=== PATIENT | male | born 1955 | race Caucasian/White ===

== ENCOUNTER 2017-06-13 17:20 | Emergency (ER) | payer OTHER ==
[~2017-06-13] VITALS: Ht 180.3 cm; Wt 83.9 kg
[~2017-06-13 17:20] MED LIST: Augmentin 875-1 EACH PO; CRUTCH3 USE; METO50 PO; OXYACE5T PO; RXOXYACE PO
== END 2017-06-13 18:08 | disposition home or self-care (01) ==
LOC: ER 17:20
DX: Z28.04 Immunization not carried out because of patient allergy to vaccine or component (principal); Z88.1 Allergy status to other antibiotic agents; Z88.7 Allergy status to serum and vaccine
CPT/HCPCS: 99281; Q2038

== ENCOUNTER 2017-12-22 22:22 | Emergency (ER) | payer OTHER ==
[~2017-12-22] VITALS: Ht 180.3 cm; Wt 86.2 kg
[2017-12-23] MEDS ORDERED: CEPH500 PO (00:05)
[2017-12-23] MEDS ORDERED: Bactrim Ds Tab1 EACH PO (00:05)
== END 2017-12-23 00:23 | disposition home or self-care (01) ==
LOC: ER 22:22
DX: L02.512 Cutaneous abscess of left hand (principal); Z88.7 Allergy status to serum and vaccine; Z88.1 Allergy status to other antibiotic agents; W27.0XXA Contact with workbench tool, initial encounter
CPT/HCPCS: 10060; 73140; 99283-25

== ENCOUNTER 2020-05-15 01:03 | Inpatient (IN) | payer OTHER ==
[~2020-05-15] VITALS: Ht 177.8 cm; Wt 90.7 kg
[~2020-05-15 01:03] MED LIST changes: +Bactrim Ds Tab1 EACH PO; +CEPH500 PO
[2020-05-15 01:22] LABS: BASOPHILS ABSOLUTE AUTO 0.06 K/mm3 (0.00-0.23); BASOPHILS PERCENT AUTO 1 % (0-2); EOSINOPHILS ABSOLUTE AUTO 0.19 K/mm3 (0.00-0.68); EOSINOPHILS PERCENT AUTO 3 % (0-6); Hematocrit 40.8 % (37.0-53.0); Hemoglobin 13.1 g/dL (13.5-17.5); IMMATURE GRAN ABSOLUTE AUTO 0.02 K/mm3 (0.00-0.10); IMMATURE GRAN PERCENT AUTO 0 % (0-1); LYMPHOCYTES ABSOLUTE AUTO 1.76 K/mm3 (0.84-5.20); LYMPHOCYTES PERCENT AUTO 27 % (21-46); MONOCYTES ABSOLUTE AUTO 0.62 K/mm3 (0.16-1.47); MONOCYTES PERCENT AUTO 10 % (4-13); Mean Corpuscular HGB 28.2 pg (26.0-34.0); Mean Corpuscular HGB Conc 32.1 g/dL (31.5-36.5); Mean Corpuscular Volume 88 fL (80-100); Mean Platelet Volume 9.7 fL (9.1-12.4); NEUTROPHILS ABSOLUTE AUTO 3.86 K/mm3 (1.96-9.15); NEUTROPHILS PERCENT AUTO 59 % (41-73); Platelet Count 276 K/mm3 (150-400); RDW Coefficient Variation 14.5 % (11.7-14.2); RDW Standard Deviation 46.3 fL (35.1-46.3); Red Blood Cell Count 4.65 M/mm3 (4.30-5.90); White Blood Cell Count 6.51 K/mm3 (4.00-11.30)
[2020-05-15 01:38] LABS: Anion Gap 4 mmol/L (6-16); Blood Urea Nitrogen 26 mg/dL (8-24); Bun/Creatinine Ratio 30.4 (12.0-20.0); CO2, Blood 29 mmol/L (21-32); Chloride, Blood 109 mmol/L (98-108); Creatinine, Blood 0.86 mg/dL (0.60-1.20); Glomerular Filtration Rate >60 (60-); Glucose, Blood 114 mg/dL (70-99); Potassium, Blood 3.8 mmol/L (3.5-5.5); Sodium, Blood 142 mmol/L (136-145)
--- NOTE | 2020-05-15 03:31 | NUR ---
ED REPORT TO SURG UNIT RECIEVED REPORT FROM AVELINA AT ED FOR PT TO TRANSFER TO ROOM 210, MED STATUS FOR CVA.
--- NOTE | 2020-05-15 04:27 | NUR ---
ARRIVED AT SURG UNIT 0320 PT ARRIVED AT SURG UNIT AT 0320. ALERT AND ORIENTED. VSS. REPORTS R SIDE WEAKNESS. PT'S R SIDE WEAKNESS WITH SOME NUMBNESS SINCE YESTERDAY MORNING. PT DENIES CP SOB, NUMBNESS OR TINGLING ON FACE, NO FACIAL DROOPING. PT ORIENT IN ROOM. CALL LIGHT W/IN REACH.
--- NOTE | 2020-05-15 04:45 | NUR ---
DR DALTON IN ROOM AT 0425. WILL CALL PT'S TOBIAS CHANG FOR AN UPDATE BECAUSE SHE CALLED AT THE NURSING STATION. OBTAINED CONSENT FROM PT.
--- NOTE | 2020-05-15 05:56 | NUR ---
NO ACUTE CHANGES AT THIS TIME. PLAVIX AND LIPITOR WAS ADMINISTERED. PT REFUSED FLU SHOT. NS IV INFUSING ON LEFT HAND. TELE WAS IN PLACED. CALLED TELE SPOKE WITH CASEY PT IS ON SINUS RHYTHM AT 60. PT IS CURRENTLY ASLEEP IN BED. CALL LIGHT WITHIN REACH. WILL GIVE REPORT TO MORNING NURSE.
--- NOTE | 2020-05-15 06:15 | NUR ---
CALLED AND SPOKE TO DAUGHTER BERNARDO FOR AN UPDATE.
--- NOTE | 2020-05-15 08:21 | NUR ---
notified dr quinonez of bp of 172/101, that pt cannot raise right arm off bed and that pt has weak survey party chief to right. also that pt is unable to state the month and when i asked him if it was beginning or end of month he chose beginning of month. dr quinonez will round on patient
--- NOTE | 2020-05-15 09:12 | NUR ---
0845 NOTIFIED PT WAS OFF TELEMETRY. ON ARRIVAL PT STANDING AT EDGE OF BED, IV HAS BEEN PULLED OUT, PT URINATED IN CLOTHING AND TELEMETRY PATCHES PULLED LOOSE. PT STATES HE WOKE UP AND KNEW HE HAD TO URINATE BUT JUST DID NOT REALIZE HE WAS CONNECTED TO IV. CALL LIGHT IN REACH, PT RE INSTRUCTED ON USE OF CALL LIGHT AND TO CALL WHEN HE WOULD LIKE TO GET OOB
[2020-05-15 11:05] LABS: BASOPHILS ABSOLUTE AUTO 0.08 K/mm3 (0.00-0.23); BASOPHILS PERCENT AUTO 1 % (0-2); EOSINOPHILS PERCENT AUTO 3 % (0-6); Hematocrit 42.8 % (37.0-53.0); Hemoglobin 13.8 g/dL (13.5-17.5); IMMATURE GRAN ABSOLUTE AUTO 0.01 K/mm3 (0.00-0.10); IMMATURE GRAN PERCENT AUTO 0 % (0-1); LYMPHOCYTES ABSOLUTE AUTO 1.57 K/mm3 (0.84-5.20); LYMPHOCYTES PERCENT AUTO 24 % (21-46); MONOCYTES ABSOLUTE AUTO 0.58 K/mm3 (0.16-1.47); MONOCYTES PERCENT AUTO 9 % (4-13); Mean Corpuscular HGB 28.2 pg (26.0-34.0); Mean Corpuscular HGB Conc 32.2 g/dL (31.5-36.5); Mean Corpuscular Volume 88 fL (80-100); Mean Platelet Volume 9.6 fL (9.1-12.4); NEUTROPHILS ABSOLUTE AUTO 4.04 K/mm3 (1.96-9.15); NEUTROPHILS PERCENT AUTO 62 % (41-73); Platelet Count 287 K/mm3 (150-400); RDW Coefficient Variation 14.6 % (11.7-14.2); RDW Standard Deviation 46.5 fL (35.1-46.3); Red Blood Cell Count 4.89 M/mm3 (4.30-5.90); White Blood Cell Count 6.48 K/mm3 (4.00-11.30)
[2020-05-15 11:27] LABS: Source, Urine Clean Catch
[2020-05-15 11:29] LABS: Alanine Aminotransfer (ALT/SGP 38 U/L (12-78); Albumin/Globulin Ratio 0.7 (0.8-1.8); Alk Phos 58 U/L (50-136); Anion Gap 6 mmol/L (6-16); Aspartate Aminotrans (AST/SGOT 26 U/L (12-37); Bilirubin, Total 0.4 mg/dL (0.1-1.0); Blood Urea Nitrogen 24 mg/dL (8-24); Bun/Creatinine Ratio 29.8 (12.0-20.0); CO2, Blood 27 mmol/L (21-32); Chloride, Blood 109 mmol/L (98-108); Creatinine, Blood 0.81 mg/dL (0.60-1.20); Globulin, Blood 4.4 g/dL (2.2-4.0); Glomerular Filtration Rate >60 (60-); Glucose, Blood 115 mg/dL (70-99); Potassium, Blood 3.9 mmol/L (3.5-5.5); Sodium, Blood 142 mmol/L (136-145); Total Protein, Blood 7.4 g/dL (6.4-8.2)
[2020-05-15 11:33] LABS: Appearance, Urine Hazy (Clear); Bilirubin, Urine Neg (Neg); Blood, Urine Neg (Neg); Color, Urine Yellow (P-Yellow); Glucose Qualitative, Urine Neg (Neg); Ketones, Urine Neg (Neg); Leukocyte Esterase, Urine 1+ (Neg); Nitrite, Urine Neg (Neg); Protein, Urine Neg (Neg); Urobilinogen, Urine NORM (Normal)
[2020-05-15 11:44] LABS: Bacteria Rare /hpf; Red Blood Cells, Urine Not Seen /hpf (0-2); Squamous Epithelial Cells Rare /hpf (Few); U Amphetamine Screen DETECTED; U Barbituate Screen Not Detected; U Benzodiazapine Screen Not Detected; U Buprenorphine Screen Not Detected; U Cannabinoids Screen Not Detected; U Cocaine Screen Not Detected; U Methadone Screen Not Detected; U Methamphetamine Screen DETECTED; U Opiates Screen Not Detected; U Oxycodone Screen Not Detected; U Phencyclidine Screen Not Detected; U Propoxyphene Screen Not Detected; White Blood Cells, Urine 0-2 /hpf (0-5)
--- NOTE | 2020-05-15 12:09 | NUR ---
Advance Directive (ACP) education/Spiritual Care visit conducted. After receiving an admit trigger for ACP education, I visit patient. Patient tells me that he is indeed interested in ACP. I explain the importance, purpose, filing process and notary/witness requirements for the ACP. I hand patient the ACP booklet. Patient demonstrates his comprehension of the information and states that he needs time to think over these important decisions. 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 We also discuss his spiritual belief system and his family. I listen empathically, normalize patient's fears and concerns and provide spiritual guidance and prayer. Patient responds well and shows signs of increased peace. I will continue to assist patient as he adjusts to his new normals.
--- NOTE | 2020-05-15 12:10 | NUR ---
Echocardiogram performed by Kassidy Acevedo under my supervision.
--- NOTE | 2020-05-15 15:43 | NUR ---
to mri via cart
--- NOTE | 2020-05-15 16:38 | NUR ---
1615 RETURN TO ROOM FROM MRI PT STOOD TO TRANSFER TO BED. UNABLE TO USE RIGHT ARM. PT STATES HE FEELS LIKE HIS LEGS ARE STRONG AND EQUAL STRENGTH WHEN HE STANDS. PTS DAUGHTER HERE TO VISIT
--- NOTE | 2020-05-15 17:26 | NUR ---
1545 SPOKE WITH PT AFTER EVALUATION. PER PT PATIENT WAS IMPULSIVE DURING THERAPY SESSION. WILL PLACE BED ALARM WHEN PT RETURNS
--- NOTE | 2020-05-15 17:30 | NUR ---
1640 PT ATTEMPTED TO GET SELF TO RESTROOM, INCONTINENT OF URINE ON FLOOR. DISCUSSED WITH PATIENT NEED TO CALL FOR ASSIST PRIOR TO GETTING OOB. PT STATES HE IS ABLE TO GET OOB ON OWN AND "WILL DO THE SAME THING AGAIN BY HIMSELF" STATES HE WILL NOT CALL FOR HELP TO GET OOB. RE EDUCATED PATIENT REGARDING FALL RISK AND RISK OF INJURY DUE TO RIGHT SIDED WEAKNESS. PT TEARFUL AND STATES HE "CAN DO THINGS ON MY OWN" PT RESISTANT TO EDUCATION CONTINUES TO REPEZT " IW ILL DO IT ON MY OWN" ASSISTED PT BACK TO BED WITH 2 PERSON ASSIST, PT DOES NOT FOLLOW CUES TO STAND STRAIGHT AND WALK TO BED SLOWLY. BED ALARM APPLIED
--- NOTE | 2020-05-15 17:41 | NUR ---
SUMMARY NEURO STATUS UNCHANGED THROUGHOUT SHIFT. VERY WEAK TURBINE ATTENDANT TO RIGHT ARM AND UNABLE TO RAISE RIGHT ARM OFF OF BED, PT DENIES ANY NUMBNESS OR TINGLING. . PT ORIENTED TO PERSON, PLACE AND EVENTS OF HOSPITALIZATION, PT UNABLE TO TELL ME DATE, YEAR OR DAY OF WEEK PT DENIES THAT HE NEEDS ASSIST OOB, BED ALARM IN PLACE. PT JOHN REGULAR DIET WITHOUT COUGHING OR CHOKING
[2020-05-16 04:23] LABS: BASOPHILS ABSOLUTE AUTO 0.05 K/mm3 (0.00-0.23); BASOPHILS PERCENT AUTO 1 % (0-2); EOSINOPHILS ABSOLUTE AUTO 0.17 K/mm3 (0.00-0.68); EOSINOPHILS PERCENT AUTO 3 % (0-6); Hematocrit 44.8 % (37.0-53.0); Hemoglobin 14.9 g/dL (13.5-17.5); IMMATURE GRAN ABSOLUTE AUTO 0.03 K/mm3 (0.00-0.10); IMMATURE GRAN PERCENT AUTO 1 % (0-1); LYMPHOCYTES PERCENT AUTO 28 % (21-46); MONOCYTES ABSOLUTE AUTO 0.52 K/mm3 (0.16-1.47); MONOCYTES PERCENT AUTO 8 % (4-13); Mean Corpuscular HGB 29.3 pg (26.0-34.0); Mean Corpuscular HGB Conc 33.3 g/dL (31.5-36.5); Mean Corpuscular Volume 88 fL (80-100); Mean Platelet Volume 9.7 fL (9.1-12.4); NEUTROPHILS ABSOLUTE AUTO 3.87 K/mm3 (1.96-9.15); NEUTROPHILS PERCENT AUTO 60 % (41-73); Platelet Count 290 K/mm3 (150-400); RDW Coefficient Variation 14.5 % (11.7-14.2); RDW Standard Deviation 46.5 fL (35.1-46.3); Red Blood Cell Count 5.09 M/mm3 (4.30-5.90); White Blood Cell Count 6.44 K/mm3 (4.00-11.30)
[2020-05-16 04:49] LABS: Anion Gap 8 mmol/L (6-16); Blood Urea Nitrogen 23 mg/dL (8-24); Bun/Creatinine Ratio 28.7 (12.0-20.0); CO2, Blood 26 mmol/L (21-32); Calcium, Blood 8.6 mg/dL (8.5-10.1); Chloride, Blood 108 mmol/L (98-108); Glomerular Filtration Rate >60 (60-); Glucose, Blood 92 mg/dL (70-99); Potassium, Blood 3.7 mmol/L (3.5-5.5); Sodium, Blood 142 mmol/L (136-145)
--- NOTE | 2020-05-16 05:48 | NUR ---
SHIFT SUMMARY S/P CVA R/O, A/O BUT RESISTANT TO USING CALL LIGHT FOR ASSISTANCE, REFUSES REDIRECTION BUT WILL CONTINUE TRYING TO REINFORCE IT, DENIES PAIN, HAS BEEN SLEEPING THROUGH MOST OF THE SHIFT. NO ACUTE EVENTS THIS SHIFT. CALL LIGHT IN REACH, WILL CONTINUE TO MONITOR AND REPORT TO ONCOMING DAY RN.
--- NOTE | 2020-05-16 17:28 | NUR ---
SUMMARY PT IMPULSIVE, DOES NOT WAIT FOR STAFF TO ASSIST OOB STATES HE CAN DO IT ON HIS OWN. PT EDUCATED ON SAFETY AND NEED TO CALL FOR ASSIST PRIOR TO GETTING OOB. BED ALARM IN PLACE. PT SLEEPY THROUGHOUT SHIFT. RIGHT HAND WITH VERY WEAK FARM AGENT AND UNABLE TO RAISE OFF OF BED. PT DENIES WEAKNESS OF RIGHT LEG. PT ORIENTED TO PERSON, PLACE UNABLE TO TELL ME MONTH OR DATE.
--- NOTE | 2020-05-17 04:32 | NUR ---
SHIFT SUMMARY: PT A&O X4. PT APPEARS TO BE FORGETFUL- PT REMINDED TO USE CALL LIGHT PRIOR TO GETTING OUT OF BED, HOWEVER REFUSING NEED FOR ASSISTANCE AND SETTING OFF BED ALARM. PT STANDING ON SIDE OF BED TO VOID IN URINAL. UNSTEADY. PT DENIES N/T THROUGHOUT. RIGHT HAND PAPER BOX MAKER REMAINS WEAK. PT ABLE TO LIFT ARM AND REST IT ON ABDOMEN. DENIES WEAKNESS TO RLE. PT RESTING MOST OF SHIFT.
[2020-05-17 10:20] LABS: Anion Gap 5 mmol/L (6-16); Blood Urea Nitrogen 23 mg/dL (8-24); Bun/Creatinine Ratio 27.6 (12.0-20.0); CO2, Blood 28 mmol/L (21-32); Calcium, Blood 8.8 mg/dL (8.5-10.1); Chloride, Blood 107 mmol/L (98-108); Creatinine, Blood 0.83 mg/dL (0.60-1.20); Glomerular Filtration Rate >60 (60-); Glucose, Blood 122 mg/dL (70-99); Potassium, Blood 3.9 mmol/L (3.5-5.5); Sodium, Blood 140 mmol/L (136-145)
[2020-05-17] MEDS ORDERED: LISI20 PO (11:14)
[2020-05-17] MEDS ORDERED: ASPI81CH PO (11:14)
[2020-05-17] MEDS ORDERED: ATOR80 PO (11:14)
--- NOTE | 2020-05-17 14:13 | NUR ---
DISCHARGE. PT LEFT WITH GIRLFRIEND IN WHEELCHAIR. SCRIPT FOR DEVAUGHN WALKER SENT WITH PATIENT. PT EDUCATED ON IMPORTANCE OF USING WALKER FOR ALL AMBULATION. NEW PRESCRIPTIONS SENT TO PHARMACY. IV REMOVED. STROKE PREVENTION GONE EVER WITH PT. EDUCATED ON IMPORTANCE OF RETURNING IMMEDIATLY IF SYMPTOMS RETURN. PT HAD NO FURTHER QUESTIONS. ALL BELONGINGS SENT WITH PT.
== END 2020-05-17 13:45 | disposition home or self-care (01) | DRG 65 ==
LOC: ER 01:03 → SURS 01:04 → ER 02:31 → SURS 02:31
PROVIDERS: Hospitalist; Student in an Organized Health Care Education/Training Program; ADMIT Internal Medicine
DX: I63.9 Cerebral infarction, unspecified (principal); G81.91 Hemiplegia, unspecified affecting right dominant side; R20.0 Anesthesia of skin; F15.10 Other stimulant abuse, uncomplicated; R93.1 Abnormal findings on diagnostic imaging of heart and coronary circulation; G93.9 Disorder of brain, unspecified; Z88.1 Allergy status to other antibiotic agents; Z88.7 Allergy status to serum and vaccine
CPT/HCPCS: 36415; 70450; 70496; 70498; 70551; 71275; 74175; 80048; 80053; 81001; 85025; 87086; 93005; 93010; 93306; 96372; 97110; 97112; 97116; 97162; 97166; 97530; 97535; 99285-25; A9270; G0378; J1650; J7030; Q9967

== ENCOUNTER → 2021-01-06 | Outpatient (CLI) | payer OTHER ==
[~2021-01-06] MED LIST changes: +ASPI81CH PO; +ATOR80 PO; +LISI20 PO
[2021-01-06 16:34] LABS: Source, Urine Catheter
[2021-01-06 17:44] LABS: Appearance, Urine Hazy (Clear); Bilirubin, Urine Neg (Neg); Blood, Urine 2+ (Neg); Color, Urine Yellow (P-Yellow); Glucose Qualitative, Urine Neg (Neg); Ketones, Urine Neg (Neg); Leukocyte Esterase, Urine 3+ (Neg); Nitrite, Urine Neg (Neg); Protein, Urine 2+ (Neg); Urobilinogen, Urine NORM (Normal)
[2021-01-06 17:58] LABS: Bacteria Few /hpf; Squamous Epithelial Cells Rare /hpf (Few)
[2021-01-06 17:59] LABS: Mucus Mod (0-Heavy)
== END | disposition home or self-care (01) ==
LOC: LAB SHORT 16:31 → LAB 16:31
PROVIDERS: Nurse Practitioner Family
DX: N40.1 Benign prostatic hyperplasia with lower urinary tract symptoms (principal)
CPT/HCPCS: 81001; 87077; 87086; 87186

== ENCOUNTER → 2021-06-29 | Outpatient (CLI) | payer OTHER ==
[2021-06-29 18:06] LABS: BASOPHILS PERCENT AUTO 1 % (0-2); EOSINOPHILS PERCENT AUTO 3 % (0-6); Hematocrit 36.5 % (37.0-53.0); Hemoglobin 11.7 g/dL (13.5-17.5); IMMATURE GRAN ABSOLUTE AUTO 0.16 K/mm3 (0.00-0.10); IMMATURE GRAN PERCENT AUTO 2 % (0-1); LYMPHOCYTES ABSOLUTE AUTO 1.92 K/mm3 (0.84-5.20); LYMPHOCYTES PERCENT AUTO 24 % (21-46); MONOCYTES ABSOLUTE AUTO 0.45 K/mm3 (0.16-1.47); MONOCYTES PERCENT AUTO 6 % (4-13); Mean Corpuscular HGB 27.7 pg (26.0-34.0); Mean Corpuscular HGB Conc 32.1 g/dL (31.5-36.5); Mean Corpuscular Volume 86 fL (80-100); Mean Platelet Volume 9.3 fL (9.1-12.4); NEUTROPHILS ABSOLUTE AUTO 5.23 K/mm3 (1.96-9.15); NEUTROPHILS PERCENT AUTO 65 % (41-73); Platelet Count 546 K/mm3 (150-400); RDW Coefficient Variation 14.1 % (11.7-14.2); RDW Standard Deviation 45.1 fL (35.1-46.3); Red Blood Cell Count 4.23 M/mm3 (4.30-5.90); White Blood Cell Count 8.06 K/mm3 (4.00-11.30)
[2021-06-29 18:43] LABS: CHOL/HDL RATIO 5.2; Cholesterol 145 mg/dL (50-200); HDL Cholesterol 28 mg/dL (>39); LDL/HDL RATIO 2.9; Low Density Lipoprotein Chol 81 mg/dL (0-110); Triglycerides 179 mg/dL (30-160); Very Low Density Lipoprot Chol 35 mg/dL (6-32)
[2021-06-29 18:51] LABS: Albumin, Blood 2.8 g/dL (3.4-5.0); Albumin/Globulin Ratio 0.6 (0.8-1.8); Bilirubin, Total 0.3 mg/dL (0.1-1.0); Bun/Creatinine Ratio 17.7 (12.0-20.0); Creatinine, Blood 2.31 mg/dL (0.60-1.20); Percent Saturation 13.3 % (20.0-50.0); Potassium, Blood 4.8 mmol/L (3.5-5.5); Thyroid Stimulating Hormone 1.09 uIU/mL (0.360-4.800); Total Protein, Blood 7.8 g/dL (6.4-8.2)
== END ==
LOC: LAB SHORT 16:18
PROVIDERS: Nurse Practitioner Family
DX: Z12.11 Encounter for screening for malignant neoplasm of colon (principal); Z11.59 Encounter for screening for other viral diseases; Z13.6 Encounter for screening for cardiovascular disorders; R01.1 Cardiac murmur, unspecified; N40.1 Benign prostatic hyperplasia with lower urinary tract symptoms; Z86.73 Personal history of transient ischemic attack (TIA), and cerebral infarction without residual deficits
CPT/HCPCS: 80053; 80061; 82728; 83036; 83540; 83550; 83880; 84443; 85025; 86803

== ENCOUNTER 2021-07-03 21:17 | Inpatient (IN) | payer OTHER ==
[~2021-07-03] VITALS: Ht 177.8 cm; Wt 76.0 kg
[2021-07-03 21:51] LABS: BASOPHILS ABSOLUTE AUTO 0.05 K/mm3 (0.00-0.23); BASOPHILS PERCENT AUTO 0 % (0-2); EOSINOPHILS ABSOLUTE AUTO 0.07 K/mm3 (0.00-0.68); EOSINOPHILS PERCENT AUTO 1 % (0-6); Hematocrit 32.2 % (37.0-53.0); Hemoglobin 10.3 g/dL (13.5-17.5); IMMATURE GRAN ABSOLUTE AUTO 0.15 K/mm3 (0.00-0.10); IMMATURE GRAN PERCENT AUTO 1 % (0-1); LYMPHOCYTES ABSOLUTE AUTO 1.53 K/mm3 (0.84-5.20); LYMPHOCYTES PERCENT AUTO 13 % (21-46); MONOCYTES PERCENT AUTO 5 % (4-13); Mean Corpuscular HGB 27.8 pg (26.0-34.0); Mean Corpuscular Volume 87 fL (80-100); NEUTROPHILS PERCENT AUTO 80 % (41-73); Platelet Count 434 K/mm3 (150-400); RDW Coefficient Variation 14.4 % (11.7-14.2); Red Blood Cell Count 3.71 M/mm3 (4.30-5.90)
[2021-07-03 22:10] LABS: Alanine Aminotransfer (ALT/SGP 43 U/L (12-78); Albumin, Blood 2.7 g/dL (3.4-5.0); Albumin/Globulin Ratio 0.6 (0.8-1.8); Alk Phos 68 U/L (50-136); Anion Gap 5 mmol/L (6-16); Aspartate Aminotrans (AST/SGOT 26 U/L (12-37); Bilirubin, Total 0.2 mg/dL (0.1-1.0); Blood Urea Nitrogen 46 mg/dL (8-24); Bun/Creatinine Ratio 19.5 (12.0-20.0); CO2, Blood 27 mmol/L (21-32); Calcium, Blood 8.9 mg/dL (8.5-10.1); Chloride, Blood 110 mmol/L (98-108); Creatinine, Blood 2.36 mg/dL (0.60-1.20); Globulin, Blood 4.9 g/dL (2.2-4.0); Glomerular Filtration Rate 28 (60-); Glucose, Blood 131 mg/dL (70-99); Potassium, Blood 3.8 mmol/L (3.5-5.5); Sodium, Blood 142 mmol/L (136-145); Total Protein, Blood 7.6 g/dL (6.4-8.2)
[2021-07-03 23:30] LABS: Source, Urine Foley catheter
[2021-07-03 23:34] LABS: Bilirubin, Urine Neg (Neg); Blood, Urine Neg (Neg); Glucose Qualitative, Urine Neg (Neg); Ketones, Urine Neg (Neg); Leukocyte Esterase, Urine 1+ (Neg); Nitrite, Urine Neg (Neg); Protein, Urine 1+ (Neg); Specific Gravity, Urine 1.015 (1.003-1.022); Urobilinogen, Urine NORM (Normal)
[2021-07-03 23:38] LABS: Appearance, Urine Clear (Clear); Color, Urine Yellow (P-Yellow)
[2021-07-03 23:40] LABS: Bacteria Rare /hpf; Red Blood Cells, Urine Not Seen /hpf (0-2); Squamous Epithelial Cells Not Seen /hpf (Few)
[2021-07-03 23:49] LABS: U Amphetamine Screen DETECTED; U Barbituate Screen Not Detected; U Benzodiazapine Screen Not Detected; U Buprenorphine Screen Not Detected; U Cannabinoids Screen Not Detected; U Cocaine Screen Not Detected; U Methadone Screen Not Detected; U Methamphetamine Screen DETECTED; U Opiates Screen Not Detected; U Oxycodone Screen Not Detected; U Phencyclidine Screen Not Detected; U Propoxyphene Screen Not Detected
--- NOTE | 2021-07-04 02:01 | NUR ---
PATIENT IS AN ED ADMIT. FOUR PERSON TRANSFER FROM [facility] TO BED. DECREASED RESPONSIVENESS. PAIN WITH MOVEMENT ON TRANSFER. RIGHT HIP FX. ON ROOM AIR. MCLEAN PRESENT FROM THE ED. PIN POINT PUPILS. PATIENT ABLE TO ONLY RAISE ONE EYE LID WHEN ASKED. METH USE. SCATTER BRUISING T/O. MOSTLY NON-VERBAL AT THIS TIME. TELEMETRY PLACED AND TECH REPORTS NSR 90. CALL LIGHT IN REACH. BED ALARM ACTIVATED.
[2021-07-04 02:15] LABS: BASOPHILS ABSOLUTE AUTO 0.05 K/mm3 (0.00-0.23); BASOPHILS PERCENT AUTO 1 % (0-2); EOSINOPHILS ABSOLUTE AUTO 0.17 K/mm3 (0.00-0.68); EOSINOPHILS PERCENT AUTO 2 % (0-6); Hematocrit 31.6 % (37.0-53.0); Hemoglobin 10.4 g/dL (13.5-17.5); IMMATURE GRAN ABSOLUTE AUTO 0.07 K/mm3 (0.00-0.10); IMMATURE GRAN PERCENT AUTO 1 % (0-1); LYMPHOCYTES ABSOLUTE AUTO 1.56 K/mm3 (0.84-5.20); LYMPHOCYTES PERCENT AUTO 16 % (21-46); MONOCYTES PERCENT AUTO 6 % (4-13); Mean Corpuscular HGB 27.8 pg (26.0-34.0); Mean Corpuscular HGB Conc 32.9 g/dL (31.5-36.5); Mean Corpuscular Volume 85 fL (80-100); Mean Platelet Volume 8.8 fL (9.1-12.4); NEUTROPHILS ABSOLUTE AUTO 7.28 K/mm3 (1.96-9.15); NEUTROPHILS PERCENT AUTO 75 % (41-73); Platelet Count 419 K/mm3 (150-400); RDW Coefficient Variation 14.5 % (11.7-14.2); RDW Standard Deviation 44.6 fL (35.1-46.3); Red Blood Cell Count 3.74 M/mm3 (4.30-5.90); White Blood Cell Count 9.73 K/mm3 (4.00-11.30)
[2021-07-04 02:35] LABS: Albumin, Blood 2.7 g/dL (3.4-5.0); Albumin/Globulin Ratio 0.6 (0.8-1.8); Bilirubin, Total 0.2 mg/dL (0.1-1.0); Bun/Creatinine Ratio 18.9 (12.0-20.0); Calcium, Blood 8.8 mg/dL (8.5-10.1); Creatinine, Blood 2.27 mg/dL (0.60-1.20); Globulin, Blood 4.8 g/dL (2.2-4.0); Potassium, Blood 3.9 mmol/L (3.5-5.5); Total Protein, Blood 7.5 g/dL (6.4-8.2)
--- NOTE | 2021-07-04 02:59 | NUR ---
ORTHOPEDIC CONSULT CALLED INTO ANSWERING SERVICE. DR. ROJAS IRON INSTALLER.
--- NOTE | 2021-07-04 04:12 | NUR ---
SHIFT SUMMARY PATIENT HAD NO ACUTE CHANGES. DECREASED RESPONSIVENESS. PIN POINT PUPILS. METH USE. BEDREST AND NPO. RESPONDS TO PAIN WITH MOVEMENT. RIGHT HIP FX. PIV REMAINS INTACT. NS INFUSING AT 100 mL/HR. PREFITTER REPORTS NSR @90. VINAY PATENT AND DRAINING TO GRAVITY PLACED IN ED. ORTHOPEDIC CONSULT CALLED INTO ANSWERING SERVICE. DR ROJAS CUPOLA MELTER HELPER. LOW GRADE TEMP 99.4. SLEPT T/O SHIFT. CALL LIGHT IN REACH. BED IN LOWEST POSITION. WILL CONTINUE TO MONITOR UNTIL DAY SHIFT NURSE ASSUMES CARE.
--- NOTE | 2021-07-04 08:00 | NUR ---
PT A/O X3 PLEASANT DENIES PAIN IN RT HIP. STATES HAD OLD STROKE, +1 YR. RT SIDE IS WEAK AT BASE LINE. ABLE TO MOVE TOES WELL, ABLE TO BEND ANKLE AND RAISE FEET ALTERNATELY WITHOUT PAIN. ADVISED PER DR ROJAS, OKAYED TO TAKE METOPROLOL AND 81 MG ASA. HOLDING ALL OTHER MEDS. MUST CONTINUE NPO UNTIL SURGERY. PT VERBALIZED UNDERSTANDING. EDUCATED PT ON INCENTIVE SPIROMETRY. PRACTICED. PT WORKING ADEQUATELY. H/R REGEZEQUIEL NOTED. PER TELE NSR AT 89 WITH SVT RUN 3 SEC LAST SHIFT. OCC PVC'S. LUNGS CLEAR, RESP EARLY, UNLABORED. ON R/A. BT X4 LAST BM NOTKNOWN BY PT. VOIDS MCLEAN CATH DRAINING YELLOW CLEAR FLUID. PT ADVISED TO CONTINUE NPO UNTIL DR IN TO SEE AND ADVISES ROUTE. BED IN LOW POSITION, CALL LITE IN REACH, CALLS APPROP.
--- NOTE | 2021-07-04 09:30 | NUR ---
PT TO DAY SURG.
[2021-07-04 09:50] LABS: Influenza A, PCR NEGATIVE (NEGATIVE); Influenza B, PCR NEGATIVE (NEGATIVE); Resp Syncytial Virus, PCR NEGATIVE (NEGATIVE); SARS-Cov-2 (COVID-19) PCR, MMC NEGATIVE (NEGATIVE)
--- NOTE | 2021-07-04 10:29 | NUR ---
07/04/21 Nadja9 Mariana Holland PATIENT ARRIVED TO OR WITH MCLEAN CATHETER IN PLACE DRAINING YELLOW URINE.
--- NOTE | 2021-07-04 11:20 | NUR ---
REPORT GIVEN TO YAEL IN SURG FLOOR
--- NOTE | 2021-07-04 11:55 | NUR ---
PT TRANFERRED TO ROOM VIA OWN BED, EYES CLOSED BUT ANSWERS QUESTIONS, MUMBLED ANSWERS. PT DENIES PAIN, DENIES N/V, POST OP VS COMMENCED, PO INTAKE PROVIDED, LUNGS CLEAR, TELEMETRY IN PLACE, SCD IN PLACE, BED IN LOWEST POSITION, BED RAILS UP X 2, CALL LIGHT WITHIN REACH. OPERATIVE SITE R HIP WITH BULKY DRESSING C/D/I WNL.
--- NOTE | 2021-07-04 17:19 | NUR ---
shift summary: vss and complete, no acute changes. Baseline BP down from 175 sbp to 155 SBP. PT worked with patient. patient up in chair for >2 hrs this afternoon. Pt's family visited. Pt tolerated PO intake, denies need for pain medication per mar. Patricia catheter patent/draining clear yellow urine. Operative site R hip bulky dressing c/d/i, WNL. Pt back in bed sleeping, SCDs in place.
[2021-07-05 04:08] LABS: Bun/Creatinine Ratio 19.2 (12.0-20.0); Calcium, Blood 8.7 mg/dL (8.5-10.1); Creatinine, Blood 2.14 mg/dL (0.60-1.20); Potassium, Blood 4.4 mmol/L (3.5-5.5)
--- NOTE | 2021-07-05 04:08 | NUR ---
SHIFT SUMMARY A/OX3. POD1 R HIP NAILING, BULKY FOAM DRESSING C/D/I. VSS. TOLERATING PO INTAKE, MCLEAN PATENT DRAINING YELLOW URINE TO GRAVITY. NO N/V REPORTED. PT PLEASANT AND COOPERATIVE WITH CARE. PT REPORTS NO PAIN THROUGHOUT SHIFT. WILL PLAN TO WORK WITH PT AND OT TODAY. WILL CONTINUE TO MONITOR AND REPORT TO ONCOMING RN.
[2021-07-05] MEDS ORDERED: BISA5EC PO (14:34)
[2021-07-05] MEDS ORDERED: AMLO10 PO (14:34)
[2021-07-05] MEDS ORDERED: DOCU100 PO (14:35)
[2021-07-05] MEDS ORDERED: Norco 5-325 Ta1 EACH PO (14:36)
[2021-07-05] MEDS ORDERED: METO25 PO (14:37)
[2021-07-05] MEDS ORDERED: DULCOLAX400 MG/5 M PO (14:37)
[2021-07-05] MEDS ORDERED: XARELTO20 MG PO (14:38)
[2021-07-05] MEDS ORDERED: HYDR1TAB94 PO (15:05)
--- NOTE | 2021-07-05 16:40 | NUR ---
DISCHARGE SUMMARY PT A&OX4, VSS/RA, JOHN PO, VOIDING, DENIES PAIN, AMB W/SBA FWW & GB, UP TO CHAIR T/O SHIFT. DC INSTRUCTIONS PROVIDED TO PT AND SAYRA (CAREGIVER/FRIEND) INCLUDING FU WITH ORTHO SG 2 WKS FOR STAPLE REMOVAL, DRESSING CHANGES Q3-5 DAYS (4 AQUACEL SENT HOME ALONG WITH PEROXIDE AND GAUZE FOR DRESSING CHANGES), OK TO SHOWER/NO TUB-IMMERSION, FWW WITH ALL AMBULATION, TAKE SHORT FREQUENT WALKS, WBAT, FU WITH PCP FARZAD DILL (HOSPITALIST AWARE OF PCP FOR HOME HEALTH ORDERS), INSTRUCTED PT TO CALL ORTHO AND PCP TO MAKE APPOINTMENTS, AND HOME HEALTH, SINCE THEY LIVE IN AREA WHERE THEY DO NOT RECEIVE CELL PHONE SERVICE. IV DC'D. PT LEFT FLOOR VIA WC WITH RADIATION CONTROL WORKER, WITH ALL PERSONAL POSSESSIONS INCLUDING DC PACKET AND 1 NARC SCRIPT, AND INFORMATION TO RETRIEVE NEW MEDS FAXED TO [facility], TO GO HOME WITH SAYRA.
== END 2021-07-05 15:41 | disposition home or self-care (01) | DRG 481 ==
LOC: ER 21:17 → MEDS 07-04 00:45 → SURS 07-04 11:19
PROVIDERS: Internal Medicine; Orthopaedic Surgery; Student in an Organized Health Care Education/Training Program; ADMIT Internal Medicine
PROC: 0QS734Z Reposition Left Upper Femur with Internal Fixation Device, Percutaneous Approach (ICD-10-PCS; principal; 2021-07-04 09:00)
DX: S72.002A Fracture of unspecified part of neck of left femur, initial encounter for closed fracture (principal); G93.40 Encephalopathy, unspecified; N17.9 Acute kidney failure, unspecified; Z20.822 Contact with and (suspected) exposure to COVID-19; F15.10 Other stimulant abuse, uncomplicated; I12.9 Hypertensive chronic kidney disease with stage 1 through stage 4 chronic kidney disease, or unspecified chronic kidney disease; N18.30 Chronic kidney disease, stage 3 unspecified; F10.10 Alcohol abuse, uncomplicated; E86.0 Dehydration; E78.5 Hyperlipidemia, unspecified; Z71.41 Alcohol abuse counseling and surveillance of alcoholic; Z71.51 Drug abuse counseling and surveillance of drug abuser; Z28.21 Immunization not carried out because of patient refusal; Z86.73 Personal history of transient ischemic attack (TIA), and cerebral infarction without residual deficits; Z79.82 Long term (current) use of aspirin; Z79.899 Other long term (current) drug therapy; Z88.1 Allergy status to other antibiotic agents; Z88.7 Allergy status to serum and vaccine; Z98.890 Other specified postprocedural states; W18.30XA Fall on same level, unspecified, initial encounter
CPT/HCPCS: 0241U; 36415; 51702; 70450; 71045; 73502; 76770; 80048; 80053; 81001; 82140; 84484; 85025; 87086; 93005; 93010; 97110; 97116; 97161; 97530; 99285-25; A9270; C1713; C1769; J0171; J0690; J1100; J1650; J1885; J2310; J2370; J2405; J2704; J3010; J7030

== ENCOUNTER → 2021-08-04 | Outpatient (CLI) | payer OTHER ==
[~2021-08-04] MED LIST changes: +AMLO10 PO; +BISA5EC PO; +DOCU100 PO; +DULCOLAX400 MG/5 M PO; +HYDR1TAB94 PO; +METO25 PO; +Norco 5-325 Ta1 EACH PO; +XARELTO20 MG PO
[2021-08-04 17:36] LABS: BASOPHILS ABSOLUTE AUTO 0.07 K/mm3 (0.00-0.23); BASOPHILS PERCENT AUTO 1 % (0-2); EOSINOPHILS ABSOLUTE AUTO 0.19 K/mm3 (0.00-0.68); EOSINOPHILS PERCENT AUTO 3 % (0-6); Hematocrit 32.5 % (37.0-53.0); Hemoglobin 10.5 g/dL (13.5-17.5); IMMATURE GRAN ABSOLUTE AUTO 0.03 K/mm3 (0.00-0.10); IMMATURE GRAN PERCENT AUTO 0 % (0-1); LYMPHOCYTES ABSOLUTE AUTO 2.15 K/mm3 (0.84-5.20); LYMPHOCYTES PERCENT AUTO 29 % (21-46); MONOCYTES ABSOLUTE AUTO 0.55 K/mm3 (0.16-1.47); MONOCYTES PERCENT AUTO 8 % (4-13); Mean Corpuscular HGB Conc 32.3 g/dL (31.5-36.5); Mean Corpuscular Volume 87 fL (80-100); NEUTROPHILS ABSOLUTE AUTO 4.33 K/mm3 (1.96-9.15); NEUTROPHILS PERCENT AUTO 59 % (41-73); Platelet Count 341 K/mm3 (150-400); RDW Coefficient Variation 14.8 % (11.7-14.2); RDW Standard Deviation 47.9 fL (35.1-46.3); Red Blood Cell Count 3.75 M/mm3 (4.30-5.90); White Blood Cell Count 7.32 K/mm3 (4.00-11.30)
[2021-08-04 19:08] LABS: Albumin, Blood 3.1 g/dL (3.4-5.0); Albumin/Globulin Ratio 0.8 (0.8-1.8); Bilirubin, Total 0.2 mg/dL (0.1-1.0); Bun/Creatinine Ratio 20.9 (12.0-20.0); Creatinine, Blood 2.01 mg/dL (0.60-1.20); Globulin, Blood 4.1 g/dL (2.2-4.0); Potassium, Blood 4.3 mmol/L (3.5-5.5); Total Protein, Blood 7.2 g/dL (6.4-8.2)
[2021-08-05 11:36] LABS: Percent Saturation 13.4 % (20.0-50.0)
== END | disposition home or self-care (01) ==
LOC: LAB SHORT 14:30
PROVIDERS: Nurse Practitioner Family
DX: S79.911A Unspecified injury of right hip, initial encounter (principal); R32 Unspecified urinary incontinence
CPT/HCPCS: 80053; 82728; 83540; 83550; 85025

== ENCOUNTER 2021-11-07 09:48 | Inpatient (IN) | payer OTHER ==
[~2021-11-07] VITALS: Ht 182.9 cm; Wt 71.8 kg
[2021-11-07 11:04] LABS: BASOPHILS ABSOLUTE AUTO 0.07 K/mm3 (0.00-0.23); BASOPHILS PERCENT AUTO 1 % (0-2); EOSINOPHILS ABSOLUTE AUTO 0.18 K/mm3 (0.00-0.68); EOSINOPHILS PERCENT AUTO 2 % (0-6); Hematocrit 33.5 % (37.0-53.0); Hemoglobin 10.9 g/dL (13.5-17.5); IMMATURE GRAN ABSOLUTE AUTO 0.04 K/mm3 (0.00-0.10); IMMATURE GRAN PERCENT AUTO 0 % (0-1); LYMPHOCYTES ABSOLUTE AUTO 1.46 K/mm3 (0.84-5.20); LYMPHOCYTES PERCENT AUTO 16 % (21-46); MONOCYTES ABSOLUTE AUTO 0.72 K/mm3 (0.16-1.47); MONOCYTES PERCENT AUTO 8 % (4-13); Mean Corpuscular HGB 26.4 pg (26.0-34.0); Mean Corpuscular HGB Conc 32.5 g/dL (31.5-36.5); Mean Corpuscular Volume 81 fL (80-100); Mean Platelet Volume 8.9 fL (9.1-12.4); NEUTROPHILS ABSOLUTE AUTO 6.97 K/mm3 (1.96-9.15); NEUTROPHILS PERCENT AUTO 74 % (41-73); Platelet Count 401 K/mm3 (150-400); RDW Coefficient Variation 14.5 % (11.7-14.2); RDW Standard Deviation 42.3 fL (35.1-46.3); Red Blood Cell Count 4.13 M/mm3 (4.30-5.90); White Blood Cell Count 9.44 K/mm3 (4.00-11.30)
[2021-11-07 11:21] LABS: Influenza A, PCR NEGATIVE (NEGATIVE); Influenza B, PCR NEGATIVE (NEGATIVE); Resp Syncytial Virus, PCR NEGATIVE (NEGATIVE); SARS-Cov-2 (COVID-19) PCR, MMC NEGATIVE (NEGATIVE)
[2021-11-07 11:32] LABS: Base Excess Venous 4.7 mmol/L; Bicarbonate Venous 27.8 mmol/L (24.0-30.0); PCO2 Venous 45.2 mmHg (38-42); pH Blood Venous 7.42 (7.34-7.37)
[2021-11-07 11:36] LABS: Albumin/Globulin Ratio 0.6 (0.8-1.8); Bilirubin, Total 0.8 mg/dL (0.1-1.0); Bun/Creatinine Ratio 19.7 (12.0-20.0); C-REACTIVE PROTEIN, EXT RANGE 2.59 mg/dL (0.000-0.300); Creatinine, Blood 1.73 mg/dL (0.60-1.20); Globulin, Blood 4.8 g/dL (2.2-4.0); Potassium, Blood 3.9 mmol/L (3.5-5.5); Total Protein, Blood 7.8 g/dL (6.4-8.2)
--- NOTE | 2021-11-07 19:24 | NUR ---
SHIFT SUMMARY PATIENT ADMITTED FROM ER FOR CELLULITIS BILATERAL FEET WITH MAGGOTS PRESENT ON LEFT FOOT. PATIENT ALERT BUT FORGETFUL HAVING DIFFICULTY ANSWERING QUESTIONS. TELE PLACED SR 70S. RECEIVING IV FLUIDS. BED BATH DONE AND FEET CLEANED BEST POSSIBLE AND DRESSINGS PLACED. REPORT GIVEN TO ONCOMING RN OF STATUS OF ADMITTING DOCUMENTATION.
--- NOTE | 2021-11-07 23:33 | NUR ---
LABOR AND EMPLOYMENT PARALEGAL REPORTS DEPRESSED ST WAVES FOR A WHILE. T 99.2 F, OTHERWISE VSS. DENIES CHEST PAIN AND VERTIGO. CHECK WRITING MACHINE OPERATOR NOTIFIED. ORDERS 12 LEAD EKG. CHARGE NURSE NOTIFIED FOR F/U
--- NOTE | 2021-11-07 23:48 | NUR ---
PRODUCTION BROACHING MACHINE OPERATOR WAS NOTIFIED OF DEPRESSED ST WAVES. ORDERED 12 EKG. EKG DONE. RIGHT BBB AND CANNOT RULE OUT INFERIOR INFARCT. PRODUCTION BROACHING MACHINE OPERATOR "ROYCE" NOTIFIED. WHO IN TURN SAID EITHER HE OR DR HOWARD WOULD ASSESS THE PT. DR HOWARD CALLED BACK AND SAID IF NOT SYMPTOMATIC, PT IS OK TO REMAIN ON THE FLOOR. PT REMAINS ASYMPTOMATIC. WILL CONT TO MONITOR
--- NOTE | 2021-11-08 03:22 | NUR ---
TELE REPORTS MORE DEPRESSED ST WAVES. ASYMPTOMATIC. DR HOWARD REVIEWED 12 LEAD EKG. SAID NOT TO REPEAT ANOTHER, AND UNLESS PT HAVING CHEST PAINS, ETC, NO FURTHER TREATMENT. PT RESTING QUIETLY WITH CALL LIGHT IN REACH
[2021-11-08 04:46] LABS: BASOPHILS ABSOLUTE AUTO 0.07 K/mm3 (0.00-0.23); BASOPHILS PERCENT AUTO 1 % (0-2); EOSINOPHILS ABSOLUTE AUTO 0.14 K/mm3 (0.00-0.68); EOSINOPHILS PERCENT AUTO 2 % (0-6); Hematocrit 32.8 % (37.0-53.0); Hemoglobin 10.5 g/dL (13.5-17.5); IMMATURE GRAN ABSOLUTE AUTO 0.02 K/mm3 (0.00-0.10); IMMATURE GRAN PERCENT AUTO 0 % (0-1); LYMPHOCYTES ABSOLUTE AUTO 1.75 K/mm3 (0.84-5.20); LYMPHOCYTES PERCENT AUTO 20 % (21-46); MONOCYTES ABSOLUTE AUTO 0.75 K/mm3 (0.16-1.47); MONOCYTES PERCENT AUTO 9 % (4-13); Mean Corpuscular HGB 26.3 pg (26.0-34.0); Mean Corpuscular Volume 82 fL (80-100); Mean Platelet Volume 9.1 fL (9.1-12.4); NEUTROPHILS ABSOLUTE AUTO 5.87 K/mm3 (1.96-9.15); NEUTROPHILS PERCENT AUTO 68 % (41-73); Platelet Count 350 K/mm3 (150-400); RDW Coefficient Variation 14.9 % (11.7-14.2); RDW Standard Deviation 44.3 fL (35.1-46.3)
--- NOTE | 2021-11-08 04:47 | NUR ---
PHARMACY PICKING TECH SUMMARY HAS BEEN QUITE LETHARGIC THROUGHOUT SHIFT. MED TELE DEPRESSED ST WAVES THROUGH SHIFT. ASYMPTOMATIC. MD WAS NOTIFIED, 12 LEAD REVEALED RIGHT BBB, AND INFARCT. MD ASSESSED THE EKG, AND SAID UNLESS PT BEGAN TO HAVE CHEST PAIN, ETC NO TREATMENT WOULD BE ORDERED. INCONT OF URINE AND FECES AND CHANGED. CONTINUES TO DENY CHEST PAIN AND/OR VERTIGO. VSS. WILL CONTINUE TO MONITOR. CALL LIGHT IN REACH
[2021-11-08 05:13] LABS: Albumin, Blood 2.6 g/dL (3.4-5.0); Albumin/Globulin Ratio 0.6 (0.8-1.8); Bilirubin, Total 0.7 mg/dL (0.1-1.0); Bun/Creatinine Ratio 14.6 (12.0-20.0); Calcium, Blood 8.6 mg/dL (8.5-10.1); Creatinine, Blood 1.99 mg/dL (0.60-1.20); Globulin, Blood 4.3 g/dL (2.2-4.0); Potassium, Blood 3.6 mmol/L (3.5-5.5); Total Protein, Blood 6.9 g/dL (6.4-8.2)
--- NOTE | 2021-11-08 12:09 | NUR ---
BILATERAL FEET DRESSING CHANGE. NOT MANY MAGGOTS NOTED YESTERDAY. SOAKED FEET IN WATER WITH A SPLASH OF BETADINE AND RINSED. NO MAGGOTS NOTED PRIOR TO DRESSING FEET WITH FLUFFS AND KERLIX, HOWEVER CONCERN THAT THERE MAY BE SOME BURROWED BETWEEN TOES AND UNDER TOE NAILS.
--- NOTE | 2021-11-08 17:40 | NUR ---
DRESSING CHANGE DONE ON BILATERAL FEET. NO MAGGOTS NOTED.
--- NOTE | 2021-11-08 18:23 | NUR ---
SHIFT SUMMARY PATIENT ALERT TO SELF. SLEPT MOST OF SHIFT, BUT WAKES EASILY. UNABLE TO ANSWER MOST QUESTIONS OR WILL STATE HE IS UNSURE. PATIENT INCONT OF URINE AND FECAL. ATTEMPTED CONDOM CATHETER, PATIENT PULLED OFF TWICE. ATTENDS CURRENTLY IN PLACE. ON . TELE SR. RECEIVING IV FLUIDS. C/O PAIN IN FEET, MEDICATED PER JUN. CHANGED BILATERAL FEET DRESSINGS. MAGGOTS PRESENT FIRST DRESSING CHANGE. NO MAGGOTS NOTED SECOND CHANGE. VSS. WILL CONTINUE TO MONITOR.
--- NOTE | 2021-11-09 04:13 | NUR ---
SHIFT SUMMARY PATIENT AXOX 1-2 SOMNULENT MOST OF SHIFT. SLOW TO RESPOND AND BEDREST. PIV REMAINS INTACT. NS FINISHED INFUSING BAG 2 OF 2 AT 100 mL/HR. TELE MONITOR NSR 89. HYPERTENSIVE START OF SHIFT BEFORE SCHEDULE PO LOPRESSOR GIVEN 12.5 MG. VSS/AFEBRILE. DENIES PAIN, SOB, AND N/V. SLEPT T/O SHIFT. CALL LIGHT IN REACH. BED IN LOWEST POSITION. WILL CONTINUE TO MONITOR UNTIL DAY SHIFT NURSE ASSUMES CARE.
--- NOTE | 2021-11-09 18:21 | NUR ---
SHIFT SUMMARY PT IN CHAIR FOR DINNER. P.T. IN TO SEE PT WITH ASSIST GETTING UP IN CHAIR. BROTHER IN TO SEE PT THIS AFTERNOON. DRESSING INTACT TO L FOOT. HAS DENIED PAIN THROUGHOUT DAY. HAS A TENDENCY TO KEEP HIS LEGS BENT EVEN WHEN ASKED TO STRAIGHTEN THEM.
--- NOTE | 2021-11-10 04:13 | NUR ---
SUMMARY: PT A/OX3 BUT IS SLOW TO RESPOND AND OCCASIONALLY FIGITY IN BED. R.SIDE WEAKNESS NOTED AND HE HAS SLIGHT CONTRACTURES TO BILAT KNEES R/T CVA HX. PT ASSISTED W/REPOSITIONING AND HAD ATTENDS CHANGED PRN FOR URGE INCONTINENCE. DX REPLACED TO L.FOOT PER ORDERS D/T BEING ABSENT AT START OF SHIFT, NO MAGGOTS OBSERVED. PT ACCIDENTALLY PULLED L.AC IV BUT L.UA IV REMAINS INTACT AND SL'D. HE'S S.HO/NSR AT 58-60'S BPM ON TELEMETRY. NO PAIN MEDS REQUIRED. VSS/AFEBRILE, NO ACUTE CHANGES. WCTM AND REPORT TO DAY RN.
[2021-11-10 08:42] LABS: Bun/Creatinine Ratio 19.3 (12.0-20.0); Calcium, Blood 9.2 mg/dL (8.5-10.1); Creatinine, Blood 2.49 mg/dL (0.60-1.20); Potassium, Blood 3.9 mmol/L (3.5-5.5)
--- NOTE | 2021-11-10 12:14 | NUR ---
CARE ROUNDING NOTE- UPON ENTERING THE ROOM THE PT WAS DRAPED OVER THE BED, WHEN STAFF ASKED WHAT HE WAS TRYING TO DO HE STATED HE WAS TRYING TO GET BACK INTO BED. PT DID NOT HAVE A CHAIR ALARM BOX IN HIS ROOM, THERE WAS ONE PLACED BENEATH HIM BUT NO BOX. CHAIR ALARMBOX WAS PLACED IN THE PT ROOM AFTER HE WAS ASSISTED BACK TO BED SAFELY BY STAFF, BED ALARM CONNECTED TO THE CALL LIGHT SYSTEM AND ON AND SET FOR PT SAFETY. ASSEMBLY OPERATOR NOTIFIED OF THE SAFETY NEEDS.
--- NOTE | 2021-11-10 19:14 | NUR ---
SHIFT SUMMARY NO ACUTE EVENTS. PLEASANT A&O X3. TELEMETRY DC'D THIS SHIFT. L UPPER ARM PERIPHERAL IV INTACT. INCONTINENT. CONDOM CATHETER DISPLACED AND LEFT OFF. DEPENDENT WITH 1-2 ASSIST. FEET WITH FLAKING SKIN, HEALING BREAKS IN THE SKIN LEFT GREATER THAN RIGHT, CLEANED AND DRIED. CONTINUE TO MONITOR.
--- NOTE | 2021-11-11 04:40 | NUR ---
SUMMARY: PT A/OX3, IS PLEASANT AND COOPERATIVE W/CARE AND SPECIFIES NEEDS WHEN STAFF IN ROOM. HE BEGAN SHIFT TEARFUL RE:LIMITATIONS AND CARE REQUIRED W/ADL'S STATING HE'S "HALF A MAN NOW". PT ALSO MADE SOME SEEMINGLY DEPRESSED COMMENTS, "WHAT KIND OF LIFE IS THIS?" AND "WHAT'S THE POINT ANYMORE?" GENERAL DENTIST MADE AWARE AND CX IS STILL PENDING. REASSURANCE, ENCOURAGEMENT AND SUPPORT PROVIDED AND HE BECAME MORE CHEERFUL AFTER TALKING ON THE PHONE AND "RECIEVING GOOD NEWS". ATTENDS AND LINEN CHANGED PRN FOR INCONTINENCE, LARGE BM THIS SHIFT. PT ASSISTED W/TURNING D/T R.SIDE WEAKNESS AND KNEE CONTRACTURES FROM HX CVA. L.FOOT WOUND REMAINS SAP SECURITY CONSULTANT PER INSTRUCTION AND MAGGOTS APPEAR TO BE RESOLVED, ORAL ABX RECIEVED. VSS/AFEBRILE. WCTM/REPORT TO DAY RN.
[2021-11-11 05:05] LABS: Bun/Creatinine Ratio 22.5 (12.0-20.0); Calcium, Blood 8.9 mg/dL (8.5-10.1); Creatinine, Blood 2.58 mg/dL (0.60-1.20)
[2021-11-11 15:14] LABS: Source, Urine Clean Catch
[2021-11-11 15:30] LABS: Bilirubin, Urine Neg (Neg); Blood, Urine 1+ (Neg); Glucose Qualitative, Urine Neg (Neg); Ketones, Urine Neg (Neg); Leukocyte Esterase, Urine 2+ (Neg); Nitrite, Urine Neg (Neg); Protein, Urine Neg (Neg); Specific Gravity, Urine 1.005 (1.003-1.022); Urobilinogen, Urine NORM (Normal)
[2021-11-11 15:40] LABS: Appearance, Urine Clear (Clear); Color, Urine Pale Yellow (P-Yellow)
[2021-11-11 15:42] LABS: Bacteria Many /hpf; Red Blood Cells, Urine 0-2 /hpf (0-2); Squamous Epithelial Cells Rare /hpf (Few)
[2021-11-11 16:00] LABS: U Amphetamine Screen DETECTED; U Barbituate Screen Not Detected; U Benzodiazapine Screen Not Detected; U Buprenorphine Screen Not Detected; U Cannabinoids Screen Not Detected; U Cocaine Screen Not Detected; U Methadone Screen Not Detected; U Methamphetamine Screen DETECTED; U Opiates Screen Not Detected; U Oxycodone Screen Not Detected; U Phencyclidine Screen Not Detected; U Propoxyphene Screen Not Detected
--- NOTE | 2021-11-11 18:12 | NUR ---
SHIFT SUMMARY PLEASANT, COOPERATIVE, RIGHT-SIDE DEFICIT. A&OX3. SOFT REGULAR DIET. IV ACCESS LEFT UPPER PERIPHERAL, FLUSHES WITHOUT DIFFICULTY. INCONTINENT STOOL AND URINE, ALTHOUGH UP TO CHAIR TODAY AND PTN DID USE URINAL. PTN UNCONDITIONED, DEPENDENT WITH 1-[address] DORMAN CONSULT, NEPHROLOGY CONSULT. CONTINUE TO MONITOR.
[2021-11-12 04:27] LABS: BASOPHILS ABSOLUTE AUTO 0.07 K/mm3 (0.00-0.23); BASOPHILS PERCENT AUTO 1 % (0-2); EOSINOPHILS ABSOLUTE AUTO 0.18 K/mm3 (0.00-0.68); EOSINOPHILS PERCENT AUTO 3 % (0-6); Hematocrit 35.4 % (37.0-53.0); Hemoglobin 11.6 g/dL (13.5-17.5); IMMATURE GRAN ABSOLUTE AUTO 0.02 K/mm3 (0.00-0.10); IMMATURE GRAN PERCENT AUTO 0 % (0-1); LYMPHOCYTES ABSOLUTE AUTO 2.17 K/mm3 (0.84-5.20); LYMPHOCYTES PERCENT AUTO 31 % (21-46); MONOCYTES ABSOLUTE AUTO 0.55 K/mm3 (0.16-1.47); MONOCYTES PERCENT AUTO 8 % (4-13); Mean Corpuscular HGB 26.6 pg (26.0-34.0); Mean Corpuscular HGB Conc 32.8 g/dL (31.5-36.5); Mean Corpuscular Volume 81 fL (80-100); Mean Platelet Volume 9.1 fL (9.1-12.4); NEUTROPHILS ABSOLUTE AUTO 3.91 K/mm3 (1.96-9.15); NEUTROPHILS PERCENT AUTO 57 % (41-73); Platelet Count 405 K/mm3 (150-400); RDW Coefficient Variation 14.9 % (11.7-14.2); RDW Standard Deviation 44.5 fL (35.1-46.3); Red Blood Cell Count 4.36 M/mm3 (4.30-5.90)
--- NOTE | 2021-11-12 04:52 | NUR ---
SHIFT SUMMARY PT HAS SLEPT T/O SHIFT. MCLEAN CATHETER INSERTED AT THE START OF THE SHIFT, PT OVER 2000 MLS WAS OBTAINED ABOUT TWO HOURS AFTER CATHETER INSERTION. URINE SAMPLES SENT FOR LABS PER ORDERS. PT TEARFUL AT THE BEGINNING OF SHIFT. WHEN I ASKED HIM WHAT WAS WRONG HE STATES THAT HE WAS UPSET BECAUSE "I LOST SOME MONEY TODAY" BUT DID NOT ELABORATE. SUPPORT PROVIDED TO PT. ASSESSMENT OTHERWISE UNCHANGED, CELLULTITIS TO TOES IMPROVING OPEN TO AIR AT THIS TIME. PLAN OF CARE UNCHANGED, BED IN LOWEST POSITION, CALL LIGHT WITHIN REACH.
[2021-11-12 05:19] LABS: Bun/Creatinine Ratio 22.9 (12.0-20.0); Calcium, Blood 9.1 mg/dL (8.5-10.1); Creatinine, Blood 2.58 mg/dL (0.60-1.20); Percent Saturation 12.7 % (20.0-50.0); Potassium, Blood 4.2 mmol/L (3.5-5.5)
--- NOTE | 2021-11-12 12:27 | NUR ---
CALLED DR GUTIERREZ- PT IS CURRENTLY HAVING A LOT OF OUTPUT IN THE MCLEAN CATH. URINE HAS BEEN GETTING PROGRESSIVELY MORE RED IN COLOR, NO CLOTS OR SEDIMENT NOTED AT THIS TIME, BRIGHT RED IN COLOR LIKE A RED GATORAIDE. DR WATTS. WILL CTM AND CALL HER AGAIN IF CLOTS ARE SEEN.
--- NOTE | 2021-11-12 18:08 | NUR ---
SHIFT SUMMARY- PT HAS HAD A VERY LARGE AMOUNT OF OUTPUT FROM HIS MCLEAN CATH THAT WAS PLACED LAST NIGHT, NNEARLY 4L OUT TODAY DURING THIS SHIFT. AT ONE POINT THE URINE WAS YELLOW THEN IT WAS THE COLOR OF RED GATORADE THEN IT WAS BACK TO HELLOW AGAIN, THE LAST TIME IT WAS EMPTIED IT SEEMED JUST A LITTLE PINK. SPOKE TO ABOUT THE RED URINE EARLIER IN THE SHIFT SHE IS AWARE. STAFF ARE TO CT AND IF CLOTS ARE NOTED THEN THEY SHOULD CALL DR GUTIERREZ AGAIN. PT HAS WWORKED WITH THERAPIES AND HAS HAD 2 INCONTINENT STOOLS T/O THE DAY TODAY. PT HAS HAD NO C/O PAIN T/O THE SHIFT, BUT DOES STATE THAT HIS BACK FEELS A LITTLE BETTER TODAY. PT CURRENTLY SITTING UP IN BED, CALL LIGHT IN REACH, HE DOES CALL FOR ASSISTANCE, MCLEAN PATENT AND DRAINING TO GRAVITY. PT HAS WOUNDS ON HIS FEET REZA AT THIS TIME PER MD ORDER, WASHED WITH WARM WATER THIS MORNING. 1/2 NS RUNNING AT 100ML/HR FOR A SINGLE BAG ORDERED BY NEPHROLOGY. NO CURRENT S&S OF DISTRESS NOTED WILL CTM.
--- NOTE | 2021-11-13 04:24 | NUR ---
SHIFT SUMMARY PATIENT HAD NO ACUTE CHANGES. LETHARGIC T/O SHIFT AND BEDREST. WILL FOLLOW COMMANDS FOR MEDICATION ADMINISTRATION. TELE MONITOR NSR 79. MCLEAN PATENT AND DRAINING FOR RETENTION. VSS/AFEBRILE. INCONTINENT OF STOOL. PIV REMAINS INTACT. DENIES PAIN, SOB, AND N/V. CALL LIGHT IN REACH. BED IN LOWEST POSITION. WILL CONTINUE TO MONITOR UNTIL DAY SHIFT NURSE ASSUMES CARE.
[2021-11-13 10:15] LABS: Bun/Creatinine Ratio 25.5 (12.0-20.0); Calcium, Blood 9.3 mg/dL (8.5-10.1); Creatinine, Blood 2.12 mg/dL (0.60-1.20); Potassium, Blood 4.5 mmol/L (3.5-5.5)
--- NOTE | 2021-11-13 12:30 | NUR ---
AM NOTE MR MORTON IS QUIET, WITHDRAWN. ORIENTATED TO SELF, PLACE AND DATE BUT CONFUSED TO WHAT SEASON IT IS. HE SAID HE'S HAD A 30LB WEIGHT LOSS OVER THE PAST 6 MONTHS, SAID HE'S HUNGRY FOR LUNCH. FEET SOAKED IN A BUCKET OF WATER THIS MORNING. HE SAID HE'S NOT HAVING ANY PAIN TO HIS FEET, DENIES ANY PAIN AT ALL. TELEMETRY DISCONTINUED. BED LOW, BED ALARM ON, CALL LIGHT IN REACH
--- NOTE | 2021-11-13 14:47 | NUR ---
900CC UOP EMPTIED FROM MCLEAN CATHETER AT 1230PM. IT WAS BLOOD TINGED. SINCE THEN IT LOOKED MORE HARLEY BLOODY IN THE MCLEAN BAG. DR JIHAN PEÑA DID A VIDEO CALL WITH MR MORTON AROUND 1345, SHE ASKED ME TO IRRIGATE THE MCLEAN WITH WARMED NS AND MONITOR FOR BLOOD CLOTS. MCLEAN WAS IRRIGATED WITH A TOTAL OF 190CC WARMED NS. THE FIRST 50CC CAUSED MR MORTON DISCOMFORT, HE DESCRIBED IT REALLY NEEDING TO URINATE OR HAVE A BOWEL MOVEMENT, SENSATION PASSED AND THEN WHEN MCLEAN WAS IRRIGATED WITH 30CC AT A TIME THERE WAS MINIMAL DISCOMFORT. THE MCLEAN WAS EMPTIED AT THE START OF THE IRRIGATION AND COMPARED TO WHAT WAS IN THE MCLEAN AFTER IRRRIGATION. IT WAS CONSIDERABLY PALER POST IRRIGATION, PINK IN COLOR. DR GUTIERREZ CALLED AND INFORMED OF THE RESULTS OF THE IRRIGATION. SHE SAID TO LOOK AT WHAT COLOR THE UOP IS IN THE MCLEAN IN 2-3 HOURS AND CALL HER AND LET HER KNOW HOW IT LOOKS. THE PLAN MAY BE FOR INTERMITTANT IRRIGATION OR FOR CONTINUOUS BLADDER IRRIGATION AT THAT POINT. MR MORTON WAS INFORMED OF ALL PROCEDURES, SHOWN THE UOP COLOR COMPARISON AND EDUCATED ON PROCEDURES.
--- NOTE | 2021-11-13 16:37 | NUR ---
APPROX 300CC HARLEY COLORED URINE IN MCLEAN SINCE IT WAS IRRIGATED. DR GUTIERREZ CALLED WITH UPDATE. SHE SAID TO CONTINUE TO WATCH IT FOR NOW, THAT I CAN IRRIGATE THE MCLEAN WITH SALINE BEFORE IF NEEDED, NO CONTINUOUS BLADDER IRRAGATION ORDERED FOR NOW. PT HAD A COUPLE OF EOPISODES WHEN HE FELT LIKE HE WAS URINATING AROUND THE MCLEAN CATHETER, BUT THE DEPENDS WAS DRY. NO BLOOD CLOTS SEEN,
--- NOTE | 2021-11-13 16:51 | NUR ---
AFTER SPEAKING TO DR GUTIERREZ PT CALLED ME BACK IN. C/O "I REALLY NEED TO PEE". HARLEY COLORED URINE TO URINARY CATHETER TUBE. PT TOOK OXY 5MG. HE DENIES FEELING LIKE A BLADDER SPASM. I CALLED DR GUTIERREZ BACK. SHE GAVE ME THE NUMBER FOR DR PEÑA, MESSAGE LEFT ON FOR DR PEÑA.
--- NOTE | 2021-11-13 17:33 | NUR ---
AFTER SPEAKING TO DR PEÑA BLADDER SCAN WAS DONE SHOWING 26CC. INFORMED AND UA WITH MICRO AND CULTURE ORDERED. PT LOOKS MORE COMFORTABLE AT THE MOMENT AFTER TAKING OXY 5MG.
[2021-11-13 17:58] LABS: Source, Urine Foley catheter
[2021-11-13 18:02] LABS: Appearance, Urine Hazy (Clear); Bilirubin, Urine Neg (Neg); Blood, Urine 5+ (Neg); Glucose Qualitative, Urine Neg (Neg); Ketones, Urine Neg (Neg); Leukocyte Esterase, Urine 1+ (Neg); Nitrite, Urine Neg (Neg); Protein, Urine 3+ (Neg); Urobilinogen, Urine NORM (Normal)
--- NOTE | 2021-11-13 18:05 | NUR ---
PT SUMMARY MR MORTON HAS HAD BLOOD IN HIS MCLEAN CATHETER TODAY, ALTERNATING BETWEEN ALMOST YELLOW LOOKING AND HARLEY WINE COLORED IN THE TUBING. C/O INTERMITTANTLY FEELING LIKE HE "REALY NEEDS TO PEE" BUT CATHETER IS DRAINING. SPOKE WITH DR PEÑA AND DR GUTIERREZ MULTIPLE TIMES THROUGHOUT THE DAY. BLADDER IRRIGATION DONE, NO CLOTS. UA AND CX SENT. I JUST TALKED TO DR GUTIERREZ AGAIN AFTER PT YELLED OUT AND WAS HEARD DOWN THE HALLS SAYING THAT HE NEEDS TO PEE. LEVSIN ORDER PUT IN [facility] PER DR GUTIERREZ, AWAITING VERIFICATION FROM PHARMACY. NO C/O PAIN FROM FEET, SOAKED EARLIER IN A BUCKET OF WATER, LEFT OPEN TO AIR. FAMILY AT BEDSIDE VISITING PT TODAY. BED LOW, CALL LIGHT IN REACH, BED ALARM ON.
[2021-11-13 18:14] LABS: Red Blood Cells, Urine 50-100 /hpf (0-2)
[2021-11-13 18:15] LABS: Bacteria Few /hpf; Squamous Epithelial Cells Rare /hpf (Few)
[2021-11-13 18:17] LABS: Color, Urine Red (P-Yellow)
--- NOTE | 2021-11-14 04:50 | NUR ---
SHIFT SUMMARY PT SLEPT THROUGH MOST OF THE NIGHT. LETHARGIC THE MAJORITY OF IT. ABLE TO WAKE BUT WITH SOME DIFFICULTY AND WOULD QUIKLY FALL BACK ASLEEP. WOULD ANSWER QUESTIONS WHILE AWAKE AND FOLLOW DIRECTIONS. MORE AWAKE THIS AM. PT HAS DENIED ANY PAIN IN BLADDER OR FEELING THE NEED TO VOID THIS EVENING. URINE IN CATHETER BAG CONTINUES TO APPEAR BLOOD TINGED. NO CLOTS NOTED. FLOWING WELL. 1300 MLS OF URINE OUT THIS SHIFT. PT IS WEAK AND CONTRACTURED. REMAINED IN BED. BLE/FEET CELLULITIS REMAINED OPEN TO AIR. VITAL SIGNS STABLE. WILL CONTINUE TO MONITOR.
[2021-11-14 05:46] LABS: Bun/Creatinine Ratio 24.4 (12.0-20.0); Calcium, Blood 9.1 mg/dL (8.5-10.1); Creatinine, Blood 2.09 mg/dL (0.60-1.20); Potassium, Blood 4.2 mmol/L (3.5-5.5)
--- NOTE | 2021-11-14 12:16 | NUR ---
MR SELENE DENIES ANY PAIN THIS MORNING. URINE OUTPUT TO MCLEAN CATHETER LOOKS CLEAR AND YELLOW TODAY. HE HAS NOT HAD ANY EPISODES LIKE YESTERDAY WHEN HE FELT LIKE HE NEEDED TO URINATE AROUND THE MCLEAN. HE IS SAD TODAY ABOUT HIS HOME SITUATION, CONSTANT ONE SIDED CONVERSATION DURING THE TIME I WAS WITH HIM, DISTRESSED ABOUT NOT BEING HOME MAKING MONEY ETC. BED BATH DONE, ASSISTED UP TO THE CHAIR WITH 2 PERSON ASSIST, GAIT BELT AND WALKER. PT WAS NOT ABLE TO HELP VERY MUCH WITH THE TRANSFER. JOSE CARE DONE. FEET SOAKED IN A WATER BUCKET, LEFT OPEN TO AIR. CHAIR ALARM ON, CALL LIGHT IN REACH.
--- NOTE | 2021-11-14 14:43 | NUR ---
MR MORTON WAS YELLING OUT LOUDLY FROM HIS BED. HE SAID HE WAS FEELING LIKE HE NEEDED TO URINATE. BLOOD TINGED URINE DRAINING VIA MCLEAN CATHETER. I OFFERED TO GET HIM THE LEVSIN BUT WHEN I TOOK IT IN HE SAID THAT HE WOULDN'T TAKE ANY MEDS THEY'RE MAKING HIM WORSE. HE SAID THAT WE'RE RUINING HIS LIFE, HE JUST WANTS TO BE BETTER AND NOT HAVE TO TAKE ANY MEDS, AND HE JUST WANTS TO URINATE NORMALLY. HE WAS TEARFUL, ANGRY, SHAKING THE SIDE RAILS, MAKING TO HIT HIS HEAD ON THE SIDE RAIL (DIDN'T LOOK LIKE HE WAS MAKING CONTACT, MORE OF AN ACTION OF FRUSTRATION). ACTIVE LISTENING. HE IS QUIETER NOW. I NOTIFIED DR GUTIERREZ AND PLACED AN ORDER IN [email or web address] FOR SEROQUIL 25MG PO Q4HRS PRN PER DR GUTIERREZ. SHE KNOWS THAT HE MAY NOT TAKE ANY MEDICATIONS. I WILL CONTINUE TO MONITOR AND ASSESS.
--- NOTE | 2021-11-14 18:23 | NUR ---
SHIFT SUMMARY MR MORTON DID HAD CLEAR YELLOW URINE TO HIS MCLEAN IN THE FIRST PART OF THE SHIFT. HE HAD A BED BATH, SAT OUT IN THE CHAIR, WALKED WITH PT. THIS AFTERNOON HIS URINE TURNED HARLEY COLORED AGAIN.HE HAD AN EPISODE OF YELLING OUT (SEE PRIOR NOTE FOR DETAILS). HE HAS NOT TAKEN ANY MEDICATIONS BUT HE IS CALMER. HE ATE HIS SUPPER AND IS CALM NOW. BED LOW, CALL LIGHT IN REACH, BED ALARM ON.
--- NOTE | 2021-11-15 05:15 | NUR ---
SHIFT SUMMARY PT MUCH MORE AWAKE THIS EVENING. DID END UP FALLING ASLEEP LATE IN THE SHIFT AND SLEEPING WELL AT THAT TIME. PT REQUESTED TO HAVE MCLEAN CATHETER REMOVED. EDUCATED PT ON CONTINUED NEED FOR CATHETER AT THIS TIME AND PT EXPRESSED UNDERSTANDING. MCLEAN BAG EMPTIED EARLY IN THE EVENING, URINE IN BAG BLOOD TINGED. NO CLOTS NOTED AGAIN WITH THIS URINE. URINE PRODUCED THE REMAINDER OF THE SHIFT CLEAR YELLOW. 1000 MLS OUT AFTER BAG WAS EMPTIED. PT DENIES ANY BLADDER PAIN OR FEELING LIKE HE NEEDS TO VOID THIS EVENING. OTHERWISE NO ACUTE CHANGES THIS EVENING. VITAL SIGNS STABLE. WILL CONTINUE TO MONITOR.
[2021-11-15 05:19] LABS: Bun/Creatinine Ratio 24.9 (12.0-20.0); Calcium, Blood 8.8 mg/dL (8.5-10.1); Creatinine, Blood 1.85 mg/dL (0.60-1.20); Potassium, Blood 3.9 mmol/L (3.5-5.5)
--- NOTE | 2021-11-15 11:28 | NUR ---
MR MORTON AWOKE AND ATE HIS BREAKFAST THIS MORNING, APART FROM THAT HE HAS BEEN SLEEPY THIS MORNING. AROUSES TO VOICE AND SAID THAT HE WANTS TO LEAVE THE HOSPITAL AND THEN FELL BACK TO SLEEP. DR GUTIERREZ TO BEDSIDE, PT SLEEPING, AWARE OF PT WANTING TO LEAVE THE HOSPITAL. URINE TO THE MCLEAN IS YELLOW WITH BLOODY SEDIMENT IN THE TUBING. NO EVENTS OF YELLING THIS MORNING OR C/O NEEDING TO VOID AROUND THE MCLEAN. NO FAMILY HERE TODAY SO FAR.BED LOW, CALL LIGHT IN REACH, BED ALARM ON.
--- NOTE | 2021-11-15 16:53 | NUR ---
SHIFT SUMMARY MR MORTON HAS BEEN RESTING A LOT TODAY, MORE WITHDRAWN, NO YELLING EPISODES, NO PAIN ASSOCIATED WITH NEEDING TO URINATE DESPITE MCLEAN CATHETER. MCLEAN IS YELLOW UOP THAT HAS BLOODY SEDIMENT, NO BLOOD CLOTS SEEN. HE HAS HAD A GOOD APPETITE, DRANK WELL. HE SAT ON THE EDGE OF THE BED AND SOAKED HIS FEET IN A BUCKET OF WATER. HE REFUSED TO GET OUT OF BED TO HIS CHAIR TODAY. HE HAS BEEN FOCUSED ON ASKING WHEN HE CAN GO HOME. HE DOESN'T REMEMBER ANYTHING ABOUT NEEDING GUARDIANSHIP. HE HAS NOT ATTEMPTED TO LEAVE, JUST ASKING WHEN HE CAN GO HOME. FEET WOUNDS OPEN TO AIR AND LOOK CLEAN. BED LOW, CALL LIGHT IN REACH.
--- NOTE | 2021-11-16 04:35 | NUR ---
SHIFT SUMMARY PT SLEPT MUCH OF THE NIGHT. SPOKE VERY LITTLE WHEN AWAKE. SLOW TO RESPOND WHEN HE DOES. PT REPORTS THAT HE WANTS TO GO HOME. DOES NOT APPEAR TO UNDERSTAND HIS INABILITY TO CARE FOR HIMSELF. PT WAS FOUND ONCE THIS SHIFT TUGGING ON MCLEAN CATHETER. STATING THAT IT HURTS. EDUCATED PT ON TRAUMA THAT CAN BE CAUSED BY DOING THIS. NO BLOOD NOTED IN URINE FOLLOWING. IN FACT, NO BLOOD IN URINE AT ALL THIS SHIFT. URINE HAS BEEN YELLOW AND CLEAR. NO COMPLAINTS OF BLADDER PAIN. PT REMAINED IN BED THIS SHIFT. BLE'S CONTINUE TO BE OPEN TO AIR. SMALL WOUNDS BETWEEN TOES, DRIED. VITAL SIGNS STABLE. PT AWAITING GUARDIANSHIP AND PLACEMENT.
--- NOTE | 2021-11-16 12:30 | NUR ---
PATIENT UP IN RECLINER FOR LUNCH. PT RECOMMENDS SBA WITH FWW AND GAITBELT
--- NOTE | 2021-11-16 17:32 | NUR ---
PATIENT IS ALERT AND ORIENTED AND COOPERATIVE WITH CARE. VINAY RYDER'D THIS SHIFT. PATIENT DOES HAVE SOME DIFFICULTY VOIDING BUT HE HAS VOIDED 400 ML SINCE HIS CATHETER REMOVAL. USES THE URINAL INDEPENDENTLY. FEET CLEANSED WITH WARM WATER. PATIENT WORKED WITH PT AND OT TODAY AND SAT UP IN THE RECLINER FOR LUNCH AND A FEW HOURS FOLLOWING. WILL CONTINUE TO MONITOR
--- NOTE | 2021-11-16 19:38 | NUR ---
THIS RN AND DAY RN WERE AT BESIDE DOING BEDSIDE REPORT FOR SHIFT CHANGE. PT ASKED ABOUT GOING HOME. STATED THAT HE THOUGHT THAT WHEN HE PEED THAT HE WOULD BE ABLE TO BE DISCHARGED. MCLEAN CATHETER WAS D/C'D TODAY AND PT HAS BEEN VOIDING WELL SINCE. AFTER INFORMING PT THAT THE DOCTOR WOULD NOT BE IN THIS EVENING TO PUT ANY ORDERS PT BECOME VERY ANGRY AND VIOLENT. STARTED POUNDING THE TABLE, PICKED UP HIS CRANBERRY JUICE CUP AND WAS SMASHING IT ON THE TABLE. YELLING, "I GOTTA GET OUT OF HERE". DISCUSSED WITH PT THAT HE WAS NOT ABLE TO TAKE CARE OF HIMSELF RIGHT NOW AND HE STATED, "WELL THAT IS A MATTER OF OPINION". CLINICAL COORDINATOR SHAYE PEARSON CAME TO ROOM TO ASSIST PT WAS STILL SCREAMING. SHE WAS ABLE TO GET PT TO CALM FOR THE TIME BEING. CALL MADE TO DR. LERMA WHO SPOKE WITH DR. BURCH. DR. BURCH WAS UNDER THE IMPRESSION THAT THE PT WAS ALREADY ON A 2 MD HOLD. 2 MD HOLD INITIATED. VESSEL CAPTAIN AWARE. ATTEMPTED TO CALL TIARA (PT STATED THIS WAS HIS EX GIRLFRIEND AND WHO WAS "COMING TO PICK HIM UP") BUT SHE DID NOT ANSWER. VOICEMAIL LEFT. AWAITING BED IN BACK [place] TO BECOME AVAILABLE.
--- NOTE | 2021-11-16 21:45 | NUR ---
PT INITIALLY REFUSED VITAL SIGNS AND EVENING MEDICATIONS. AFTER HE HAD CALMED AGAIN HE AGREED TO ALLOW ME TO TAKE HIS VITALS AND HE AGREED TO TAKE HIS MEDICATIONS. PT TRANSFERED TO ROOM 347 VIA BED. SLEEPY AT THE TIME.
[2021-11-17 05:22] LABS: BASOPHILS PERCENT AUTO 2 % (0-2); EOSINOPHILS ABSOLUTE AUTO 0.27 K/mm3 (0.00-0.68); EOSINOPHILS PERCENT AUTO 5 % (0-6); Hematocrit 32.9 % (37.0-53.0); Hemoglobin 10.6 g/dL (13.5-17.5); IMMATURE GRAN ABSOLUTE AUTO 0.02 K/mm3 (0.00-0.10); IMMATURE GRAN PERCENT AUTO 0 % (0-1); LYMPHOCYTES ABSOLUTE AUTO 2.29 K/mm3 (0.84-5.20); LYMPHOCYTES PERCENT AUTO 39 % (21-46); MONOCYTES ABSOLUTE AUTO 0.48 K/mm3 (0.16-1.47); MONOCYTES PERCENT AUTO 8 % (4-13); Mean Corpuscular HGB 26.5 pg (26.0-34.0); Mean Corpuscular HGB Conc 32.2 g/dL (31.5-36.5); Mean Corpuscular Volume 82 fL (80-100); Mean Platelet Volume 9.3 fL (9.1-12.4); NEUTROPHILS PERCENT AUTO 46 % (41-73); Platelet Count 391 K/mm3 (150-400); RDW Coefficient Variation 14.6 % (11.7-14.2); RDW Standard Deviation 43.5 fL (35.1-46.3); White Blood Cell Count 5.86 K/mm3 (4.00-11.30)
--- NOTE | 2021-11-17 05:25 | NUR ---
SHIFT SUMMARY PT TRANSFERRED TO 347 AFTER 2MD HOLD INITIATED LAST NIGHT 11/16/21. RECIEVED REPORT FROM SILVIA Esquivel RN. AOX2-3, SELF, PLACE, FOLLOWING DIRECTIONS. UNAWARE OF SITUATION OR DATE. VERY FLAT AFFECT & WITHDRAWN, DOESNT ENGAGE IN CONVERSATION ANSWERS VERY SHORT 1 WORD RESPONSES OR LAYS QUIET WITH EYES CLOSED LIKE HE IS SLEEPING WHEN HES ACTUALLY AWAKE. VSS. DENIES PAIN, N/V OR DYSPNEA. INCONT OF URINE, ATTENDS CHANGED PRN. AWAITING GAURDIANSHIP & PLACEMENT. BED ALARM & CALL LIGHT IN REACH. WILL MONITOR.
[2021-11-17 05:50] LABS: Bun/Creatinine Ratio 23.2 (12.0-20.0); Calcium, Blood 8.6 mg/dL (8.5-10.1); Creatinine, Blood 1.81 mg/dL (0.60-1.20)
--- NOTE | 2021-11-17 17:27 | NUR ---
SHIFT SUMMARY: PT A/O X 2, ONE ASSIST WITH GB AND WALKER. PT WAS COOPERATIVE WITH CARE TODAY. HE WAS QUIET IN HIS ROOM. HE VERBALIZED HIS DISAPROVAL OF HAVING TO STAY IN THE HOSPITAL BUT WAS NOT AGGRESSIVE IN ANY WAY ABOUT THIS CONCERN OF HIS. PT EATING WELL AND TAKING HIS MEDICATIONS. HE DID REFUSE THE LOVENOX INJECTION EVEN AFTER BEING EDUCATED ON WHY IT WAS PRESCRIBED. PT DID NOT C/O PAIN, NAUSEA THROUGH OUT THE DAY. NO CONCERNS AT THIS TIME.
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
--- NOTE | 2021-11-18 18:03 | NUR ---
SHIFT SUMMARY PT A&OX 3, MOOD UP AND DOWN T/O SHIFT. PT RESTED IN BED AND CHAIR T/O SHIFT. WORKED W/ PHYSICAL THERAPY AND OCCUPATION THERAPY THIS SHIFT. EASILY IRRITATED. CALL LIGHT W/IN REACH. VSS. D/C PLANNING-DAUGHTER ATTEMPTING GAURDIANSHIP. TOLERATING PO INTAKE WELL. DENIES PAIN.
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
[2021-11-19 06:18] LABS: BASOPHILS ABSOLUTE AUTO 0.09 K/mm3 (0.00-0.23); BASOPHILS PERCENT AUTO 2 % (0-2); EOSINOPHILS ABSOLUTE AUTO 0.24 K/mm3 (0.00-0.68); EOSINOPHILS PERCENT AUTO 5 % (0-6); Hematocrit 32.9 % (37.0-53.0); Hemoglobin 10.5 g/dL (13.5-17.5); IMMATURE GRAN ABSOLUTE AUTO 0.03 K/mm3 (0.00-0.10); IMMATURE GRAN PERCENT AUTO 1 % (0-1); LYMPHOCYTES ABSOLUTE AUTO 1.85 K/mm3 (0.84-5.20); LYMPHOCYTES PERCENT AUTO 35 % (21-46); MONOCYTES ABSOLUTE AUTO 0.41 K/mm3 (0.16-1.47); MONOCYTES PERCENT AUTO 8 % (4-13); Mean Corpuscular HGB 26.4 pg (26.0-34.0); Mean Corpuscular HGB Conc 31.9 g/dL (31.5-36.5); Mean Corpuscular Volume 83 fL (80-100); Mean Platelet Volume 8.9 fL (9.1-12.4); NEUTROPHILS ABSOLUTE AUTO 2.74 K/mm3 (1.96-9.15); NEUTROPHILS PERCENT AUTO 51 % (41-73); Platelet Count 373 K/mm3 (150-400); RDW Coefficient Variation 14.8 % (11.7-14.2); Red Blood Cell Count 3.97 M/mm3 (4.30-5.90); White Blood Cell Count 5.36 K/mm3 (4.00-11.30)
[2021-11-19 06:39] LABS: Bun/Creatinine Ratio 22.4 (12.0-20.0); Calcium, Blood 8.6 mg/dL (8.5-10.1); Creatinine, Blood 1.61 mg/dL (0.60-1.20)
--- NOTE | 2021-11-19 16:36 | NUR ---
SHIFT SUMMARY PT A&OX4 AND IN PLEASENT MOOD T/O SHIFT. PLASTICS SUPERVISOR PROVIDED SHOWER FOR PT THIS SHIFT. INCONTINENT. PT WORKED W/ PHYSICAL AND OCCUPATIONAL THERAPY THIS SHIFT. CALL LIGHT W/IN REACH. TOLERATING PO INTAKE WELL. BOWEL CARE MEDS PROVIDED. VSS.
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
--- NOTE | 2021-11-20 17:56 | NUR ---
SHIFT SUMMARY PATIENT A&OX3. SBA WITH FWW. PATIENT SPENT DAY RESTING. NO SIGNICANT EVENTS. CURRENTLY ON 2MD HOLD PENDING GUARDIANSHIP AND PLACEMENT. VSS. WILL CONTINUE TO MONITOR.
--- NOTE | 2021-11-21 04:24 | NUR ---
SHIFT SUMMARY PATIENT HAD NO ACUTE CHANGES. AXOX 2-3 FORGETFUL. ONE ASSIST W/FWW TO BSC. NO IV ACCESS. DENIES PAIN, SOB, AND N/V. VSS/AFEBRILE. SLEPT MOST OF SHIFT. ONE OOB ATTEMPT SWINGING LEGS. ON CAMERA AND BED ALARM. CALL LIGHT IN REACH. BED IN LOWEST POSITION. WILL CONTINUE TO MONITOR UNTIL DAY SHIFT NURSE ASSUMES CARE.
--- NOTE | 2021-11-21 10:45 | NUR ---
PATIENT ASKING WHEN HE IS GOING HOME. INFORMED PATIENT HE WILL NOT BE GOING TODAY. PATIENT BECAME SEVERLY AGITATED, YELLING AND THREATENING STATING HE IS GOING TO LEAVE THAT HE IS LOSING MONEY. PATIENT HIT CUP OF ICE ACROSS THE ROOM AND BEGAN PUNCHING BED SIDE RAIL MULTIPLE TIMES. RN, RN OSTOMY AND PALLATIVE CARE IN ROOM ATTEMPTING TO DEESCALATE PATIENT. PATIENT STILL SEVERELY AGITATED STATING HE IS LEAVING. SECURITY CALLED AND DOCTOR NOTIFIED. IM ATIVAN ORDERED. SECURITY AND RN TALKED WITH PATIENT IN REGARDS TO GIVING ORDERED MEDICATION. PATIENT ADDAMENTLY RESUFING TO BE GIVEN ANY MEDICATION THAT HE IS LEAVING AND THAT HE WILL FIGHT US, GESTURING WITH HIS FISTS AND STATING "HE COULD TAKE US". CONTUNUED TO EDUCATE PATIENT IN REGARDS TO RECEIVING MEDICATION AND THAT HE IS NOT ABLE TO LEAVE AT THIS TIME. PATIENT EVENTUALLY AGREED TO RECEIVING MEDICATION AND ALLOWED MEDICATION TO BE GIVEN IN THIGH. PATIENT CURRENTLY SLEEPING IN BED.
--- NOTE | 2021-11-21 17:34 | NUR ---
SHIFT SUMMARY PATIENT A&O2-3, FORGETFUL. SBA TO CHAIR. PATIENT BECAME SEVERELY AGITATED THIS AFTERNOON. MEDICATED WITH IM ATIVAN. PATIENT SLEPT MOST OF SHIFT AFTER MEDICATION. WILL CONTINUE TO MONITOR.
--- NOTE | 2021-11-22 04:14 | NUR ---
SHIFT SUMMARY PATIENT HAD MILD AGITATION START OF SHIFT. AXOX 2-3 FORGETFUL. ONE ASSIST FWW TO BSC. USES URINAL AT BEDSIDE. VSS/AFEBRILE. DENIES PAIN, SOB, AND N/V. NO IV ACCESS. SLEPT MOST OF SHIFT. CALL LIGHT IN REACH. BED IN LOWEST POSITION. WILL CONTINUE TO MONITOR UNTIL DAY SHIFT NURSE ASSUMES CARE.
--- NOTE | 2021-11-22 17:40 | NUR ---
SHIFT SUMMARY PATIENT ON 2MD HOLD PENDING GUARDIANSHIP. THIS AM PATIENT STARTED GETTING AGITATED ABOUT WHEN HE IS LEAVING, MEDICATED PER MAR. PATIENT INCONT WITH ATTENDS IN PLACE. 1PA WITH FWW TO BATHROOM FOR SHOWER. VSS. WILL CONTINUE TO MONITOR.
--- NOTE | 2021-11-23 04:11 | NUR ---
SHIFT SUMMARY PATIENT HAD NO ACUTE CHANGES OBSERVED. ASKING WHEN HE CAN GO HOME. AXOX 3 WITH CONFUSION AT TIMES. ONE ASSIST TO BSC. SOFT BP 90/67. PO LOPRESSOR HELD. AFEBRILE. NO IV ACCESS. 2 MD HOLD AND ON RROM AIR. DENIES PAIN, SOB, AND N/V. CALL LIGHT IN REACH. BED IN LOWEST POSITION. WILL CONTINUE TO MONITOR UNTIL DAY SHIFT NURSE ASSUMES CARE.
[2021-11-23 05:03] LABS: BASOPHILS ABSOLUTE AUTO 0.08 K/mm3 (0.00-0.23); BASOPHILS PERCENT AUTO 1 % (0-2); EOSINOPHILS ABSOLUTE AUTO 0.19 K/mm3 (0.00-0.68); EOSINOPHILS PERCENT AUTO 3 % (0-6); Hematocrit 34.3 % (37.0-53.0); Hemoglobin 11.1 g/dL (13.5-17.5); IMMATURE GRAN ABSOLUTE AUTO 0.01 K/mm3 (0.00-0.10); IMMATURE GRAN PERCENT AUTO 0 % (0-1); LYMPHOCYTES ABSOLUTE AUTO 2.32 K/mm3 (0.84-5.20); LYMPHOCYTES PERCENT AUTO 39 % (21-46); MONOCYTES ABSOLUTE AUTO 0.37 K/mm3 (0.16-1.47); MONOCYTES PERCENT AUTO 6 % (4-13); Mean Corpuscular HGB 26.6 pg (26.0-34.0); Mean Corpuscular HGB Conc 32.4 g/dL (31.5-36.5); Mean Corpuscular Volume 82 fL (80-100); Mean Platelet Volume 9.9 fL (9.1-12.4); NEUTROPHILS ABSOLUTE AUTO 2.99 K/mm3 (1.96-9.15); NEUTROPHILS PERCENT AUTO 50 % (41-73); Platelet Count 367 K/mm3 (150-400); RDW Coefficient Variation 15.2 % (11.7-14.2); RDW Standard Deviation 45.2 fL (35.1-46.3); Red Blood Cell Count 4.17 M/mm3 (4.30-5.90); White Blood Cell Count 5.96 K/mm3 (4.00-11.30)
[2021-11-23 05:31] LABS: Bun/Creatinine Ratio 19.6 (12.0-20.0); Calcium, Blood 8.7 mg/dL (8.5-10.1); Creatinine, Blood 1.63 mg/dL (0.60-1.20)
--- NOTE | 2021-11-23 17:03 | NUR ---
PT AOX2-3 VERY QUIET MOST OF THE MORNING. PT STARTED TO GET UP SET AND MAKE PHONE CALLS TO GET SOMEONE TO PICK HIM UP. TREATED INCREASED ANXIETY PER EMAR AND THIS SEEMS TO HAVE HELPED. PT HAS BEEN UP IN CHAIR AND IS NOW BACK IN BED RESTING. NO DISTRESS NOTED AT THIS TIME WILL CONTINUE TO MONITOR.
--- NOTE | 2021-11-24 04:47 | NUR ---
SHIFT SUMMARY: A/OX2-3, PT VERY IRRITABLE WITH STAFF. WAS ABLE TO SLEEP WELL THROUGHOUT THE NIGHT. PT HAD SLIGHT HYPOTENSION AT THE BEGINNING OF SHIFT. KRYSTLE ADKINS NOTIFIED OF HYPOTENSION, MD REQUEST TO WAIT AND REASSESS SINCE PT WAS ASYMPTOMATIC. IF MAP IS LESS THAN 65 MD REQUEST NOTIFICATION AND REPORTED INTERVENTIONS WOULD BE ADDED. WHEN BP WAS REASSESSED IT WAS IN NORMAL LIMITS. OTHERWISE NO ACUTE CHANGES, NO REPORTS OF PAIN. 1 ASSIST STANDBY WHEN OUT OF BED AND INDEPENDENT REPOSITIONING IN BED.
--- NOTE | 2021-11-24 19:28 | NUR ---
SHIFT SUMMARY PT AxOx3-4. PLEASANT AND COOPERATIVE WITH CARE. PT ACTING ANXIOUS ABOUT BEING ON HOLD STATING HE REALLY WANTS TO GO HOME TODAY. PT STATES HE HAS SOMEONE AT HOME THAT WILL CAREGIVE HIM. PT REASSURED THAT CASE MANAGEMENT WILL BE CONTACTED TOMORROW TO CHECK ON STATUS OF DC, BUT HE DOES NOT HAVE DC ORDERS AT THIS TIME. PT WORKED WITH PT/OT THIS SHIFT. PT DENIES PAIN THIS SHIFT. VITALS REVIEWED. PT CURRENTLY RESTING IN BED WITH CALL LIGHT IN REACH.
--- NOTE | 2021-11-25 03:35 | NUR ---
SHIFT SUMMARY 65 YR M ADMITTED ON 11/07/21 FOR CELLULITIS AND PLACED ON A TWO MD HOLD DUE TO ALTERED MENTATION. FULL CODE. NO ACUTE CHANGES THIS SHIFT. PT BECAME VERY UPSET AT THE BEGINNING OF THE SHIFT BECAUSE HE WANTS TO GO HOME AND HE SAID HE WASN'T GETTING ANY ANSWERS. HE BEGAN REPEATEDLY PUNCHING THE SIDE RAILS OF THE BED AND GRABBING THEM AND SHAKING THE BED. HE STATED THAT HE WANTED TO BE LEFT ALONE SO THIS NURSE LEFT THE ROOM TO AVOID FURTHER AGITATAING HIM. HE FELL ASLEEP AND STAYED ASLEEP FOR MOST OF THE REST OF THE SHIFT. BED IN LOW POSITION AND CALL LIGHT IN REACH.
--- NOTE | 2021-11-25 18:39 | NUR ---
PATIENT ALERT AND ORIENTED TO SELF, FAMILY, PLACE. NO ACUTE CHANGES, BECAME AGGRESSIVE TOWARDS HIMSELF AND STAFF "I WILL FIGHT ALL OF YOU" PUNCHING THE BED RAILS AND THROWING ITEMS AT STAFF, MEDICATED WITH HALDOL, PATIENT NOW CALM. TODAY IS HIS BIRTHDAY, LS CLEAR DIM BASES, NO NV, NO IV, 1 PERSON FWW ASISST, PEDNING GUARDIAN SHIP BEFORE PATIENT ABLE TO LEAVE. CELLULITITS ON TOES HEALED, CONT/INCONT AT TIMES, ATTENDS CDI, WILL RELAY TO PM RN, HAI
--- NOTE | 2021-11-26 05:57 | NUR ---
PLUCK SEPARATOR SUMMARY ADMITTED FOR CELLULITIS OF BOTH FEET. HE IS A FULL CODE. PLAN FOR GUARDIANSHIP AND PLACEMENT. PT WAS MEDICATED LAST SHIFT AND HAS SLEPT THROUGH MOST OF THIS SHIFT. NOT GIVEN PO NOC MEDS DUE TO SLEEPING. PT WOKE UP FOR A BRIEF PERIOD THIS AM FOR AN ATTENDS CHANGE AND TO EAT HIS SLICE OF BIRTHDAY CAKE. PT IS INCONTINENT. HE DID NOT GET OUT OF BED THIS SHIFT BUT IS ABLE TO ROLL FOR ATTENDS CHANGES.
--- NOTE | 2021-11-26 08:00 | NUR ---
pt laying in bed with eyes closed, slow to respond, refused stool softeners and lovenox, did take po meds without diff, returned to sleep, call light in reach.
--- NOTE | 2021-11-26 13:03 | NUR ---
staff attempted to talk to pt about his need for stool softeners, or maybe drinking a prune juice, he states if you let me go home I will, refused again. call light in reach.
--- NOTE | 2021-11-26 18:04 | NUR ---
pt laying in bed, eating dinner, no acute changes this shift. started him on miralax, call light in reach.
--- NOTE | 2021-11-27 05:22 | NUR ---
SHIFT SUMMARY PATIENT ALERT AND ORIENTED X2. HAD NO COMPLAINTS OF PAIN OR SHORTNESS OF BREATH. NO ACUTE ISSUES NOTED OVERNIGHT. CALL LIGHT WITHIN REACH. REPORT GIVEN TO ONCOMING RN.
--- NOTE | 2021-11-27 10:03 | NUR ---
MR MORTON IS QUIET, A LITTLE WITHDRAWN. ORIENTATED TO SELF, M[facility], NOT TO DATE THOUGH HE TOLD ME IT WAS HIS BIRTHDAY 2 DAYS AGO, A LITTLE VAGUE ABOUT WHY HE IS HERE IN THE HOSPITAL "WAITING TO GET OUT. HERE BECAUSE OF MY FEET". HE SAID THAT HE HAS BEEN URINATING WITHOUT PROBLEMS, URINE NOT YET SEEN THIS SHIFT. HE SAID HE DOES NOT HAVE CONSTIPATION AND REFUSED HIS AM MIRILAX (TOOK SENNA AND COLACE). FEET WOUNDS HEALS, NO OPEN SORES, SOME SMALL AREAS OF REDNESS ON TOP OF TOES. HE DENIES ANY PAIN OR DISCOMFORT. BED ALARM ON. CALL LIGHT IN REACH
--- NOTE | 2021-11-27 13:37 | NUR ---
MR SELENE BECAME AGGITATED, HE SAID HE WANTS TO GO HOME AFTER RECEIVING A PHONE CALL. HE WAS YELLING, SWEARING, THROWING ITEMS ACROSS THE ROOM. HE DECLINED TAKING ANY MEDICATIONS TO HELP HIM TO RELAX. HE SAID THAT HE HAS A CAREGIVER WHO IS COMING TO GET HIM AND TAKE HIM HOME. HE CALMED DOWN ONCE HE WAS INFORMED BY THE CHARGE NURSE THAT HE IS FREE TO LEAVE, AND THAT HIS CAREGIVER CAN COME AND GET HIM AND TAKE HIM HOME. DR LERMA CALLED AND NOTIFIED THAT PT IS READY TO LEAVE [place].
--- NOTE | 2021-11-27 14:53 | NUR ---
PT LEFT AGAINST MEDICAL ADVICE WITH A MALE AND A FEMALE WHILST I WAS ON BREAK. RICARDO ANN ZAHIRA GAVE PAPERWORK TO MR MORTON TO SIGN AND SAID THAT SHE EXPLAINED THAT THIS WAS A DISCHARGE AGAINST MEDICAL ADVICE AND THAT HE WAS TAKING RESPONSIBILITY FOR THE OUTCOME OF LEAVING THE HOSPITAL. SHE SAID HE VERBALISED UNDERSTANDING AND SIGNED THE PAPERWORK. PT LEFT AT 1247. DR LERMA INFORMED THAT HE HAS LEFT THE HOSPITAL.
== END 2021-11-27 14:18 | disposition left against medical advice (07) | DRG 872 ==
LOC: ER 09:48 → MEDS 13:22 → ERHOLD 13:22 → MEDS 17:22
PROVIDERS: Family Medicine; Internal Medicine Nephrology; Student in an Organized Health Care Education/Training Program; ADMIT Internal Medicine
DX: A41.9 Sepsis, unspecified organism (principal); L03.115 Cellulitis of right lower limb; I69.351 Hemiplegia and hemiparesis following cerebral infarction affecting right dominant side; N17.9 Acute kidney failure, unspecified; N13.8 Other obstructive and reflux uropathy; L03.116 Cellulitis of left lower limb; N13.6 Pyonephrosis; Z20.822 Contact with and (suspected) exposure to COVID-19; E86.0 Dehydration; L97.529 Non-pressure chronic ulcer of other part of left foot with unspecified severity; F01.50 Vascular dementia, unspecified severity, without behavioral disturbance, psychotic disturbance, mood disturbance, and anxiety; I12.9 Hypertensive chronic kidney disease with stage 1 through stage 4 chronic kidney disease, or unspecified chronic kidney disease; N40.1 Benign prostatic hyperplasia with lower urinary tract symptoms; N18.32 Chronic kidney disease, stage 3b; R33.9 Retention of urine, unspecified; D63.1 Anemia in chronic kidney disease; E78.5 Hyperlipidemia, unspecified; Z98.890 Other specified postprocedural states; Z88.1 Allergy status to other antibiotic agents; Z88.7 Allergy status to serum and vaccine; Z79.01 Long term (current) use of anticoagulants; Z79.82 Long term (current) use of aspirin; Z79.899 Other long term (current) drug therapy
CPT/HCPCS: 0241U; 36415; 71045; 73630; 76770; 80048; 80053; 81001; 82570; 82607; 82728; 82746; 82803; 83540; 83550; 83605; 83735; 83970; 84145; 84156; 84300; 84484; 85025; 85651; 86140; 87040; 87086; 93005; 93010; 94760; 96365; 96375; 97110; 97116; 97129; 97130; 97162; 97166; 97530; 97535; 99285-25; A9270; J0360; J0692; J1630; J1650; J1956; J2060; J3010; J3370; J7030; J7060

== ENCOUNTER 2022-03-18 17:13 | Inpatient (IN) | payer OTHER ==
[~2022-03-18] VITALS: Ht 182.9 cm; Wt 71.5 kg
[2022-03-18 18:27] LABS: BASOPHILS ABSOLUTE AUTO 0.01 K/mm3 (0.00-0.23); BASOPHILS PERCENT AUTO 0 % (0-2); EOSINOPHILS PERCENT AUTO 0 % (0-6); Hematocrit 26.5 % (37.0-53.0); Hemoglobin 8.9 g/dL (13.5-17.5); IMMATURE GRAN ABSOLUTE AUTO 0.04 K/mm3 (0.00-0.10); IMMATURE GRAN PERCENT AUTO 1 % (0-1); LYMPHOCYTES ABSOLUTE AUTO 0.77 K/mm3 (0.84-5.20); LYMPHOCYTES PERCENT AUTO 10 % (21-46); MONOCYTES ABSOLUTE AUTO 0.54 K/mm3 (0.16-1.47); MONOCYTES PERCENT AUTO 7 % (4-13); Mean Corpuscular HGB 27.7 pg (26.0-34.0); Mean Corpuscular HGB Conc 33.6 g/dL (31.5-36.5); Mean Corpuscular Volume 83 fL (80-100); Mean Platelet Volume 10.4 fL (9.1-12.4); NEUTROPHILS ABSOLUTE AUTO 6.19 K/mm3 (1.96-9.15); NEUTROPHILS PERCENT AUTO 82 % (41-73); Platelet Count 262 K/mm3 (150-400); RDW Coefficient Variation 15.1 % (11.7-14.2); RDW Standard Deviation 45.6 fL (35.1-46.3); Red Blood Cell Count 3.21 M/mm3 (4.30-5.90); White Blood Cell Count 7.55 K/mm3 (4.00-11.30)
[2022-03-18 18:55] LABS: Magnesium, Blood 1.9 mg/dL (1.6-2.4)
[2022-03-18 18:56] LABS: Creatine Kinase MB 7.7 ng/mL (0.0-3.6); Creatine Kinase MB Index 1.8 (0.0-4.0)
[2022-03-18 19:01] LABS: Alanine Aminotransfer (ALT/SGP 27 U/L (12-78); Albumin, Blood 2.4 g/dL (3.4-5.0); Albumin/Globulin Ratio 0.5 (0.8-1.8); Alk Phos 59 U/L (50-136); Anion Gap 11 mmol/L (6-16); Aspartate Aminotrans (AST/SGOT 30 U/L (12-37); Bilirubin, Total 0.4 mg/dL (0.1-1.0); Blood Urea Nitrogen 77 mg/dL (8-24); CO2, Blood 19 mmol/L (21-32); Calcium, Blood 8.5 mg/dL (8.5-10.1); Chloride, Blood 106 mmol/L (98-108); Creatinine, Blood 3.21 mg/dL (0.60-1.20); Ethanol (Alcohol), Blood, Med <3 mg/dL; Globulin, Blood 4.4 g/dL (2.2-4.0); Glomerular Filtration Rate 20 (60-); Glucose, Blood 106 mg/dL (70-99); Potassium, Blood 4.3 mmol/L (3.5-5.5); Sodium, Blood 136 mmol/L (136-145); Total Protein, Blood 6.8 g/dL (6.4-8.2)
[2022-03-18 19:08] LABS: Influenza A, PCR NEGATIVE (NEGATIVE); Influenza B, PCR NEGATIVE (NEGATIVE); Resp Syncytial Virus, PCR NEGATIVE (NEGATIVE); SARS-Cov-2 (COVID-19) PCR, MMC NEGATIVE (NEGATIVE)
[2022-03-18 22:58] LABS: Hematocrit 24.2 % (37.0-53.0); Hemoglobin 8.5 g/dL (13.5-17.5)
[2022-03-19 05:56] LABS: BASOPHILS ABSOLUTE AUTO 0.01 K/mm3 (0.00-0.23); BASOPHILS PERCENT AUTO 0 % (0-2); EOSINOPHILS ABSOLUTE AUTO 0.01 K/mm3 (0.00-0.68); EOSINOPHILS PERCENT AUTO 0 % (0-6); Hemoglobin 8.6 g/dL (13.5-17.5); IMMATURE GRAN ABSOLUTE AUTO 0.02 K/mm3 (0.00-0.10); IMMATURE GRAN PERCENT AUTO 0 % (0-1); LYMPHOCYTES PERCENT AUTO 12 % (21-46); MONOCYTES ABSOLUTE AUTO 0.51 K/mm3 (0.16-1.47); MONOCYTES PERCENT AUTO 9 % (4-13); Mean Corpuscular HGB Conc 34.4 g/dL (31.5-36.5); Mean Corpuscular Volume 81 fL (80-100); Mean Platelet Volume 10.4 fL (9.1-12.4); NEUTROPHILS ABSOLUTE AUTO 4.61 K/mm3 (1.96-9.15); NEUTROPHILS PERCENT AUTO 79 % (41-73); Platelet Count 252 K/mm3 (150-400); RDW Coefficient Variation 15.3 % (11.7-14.2); RDW Standard Deviation 45.4 fL (35.1-46.3); Red Blood Cell Count 3.07 M/mm3 (4.30-5.90); White Blood Cell Count 5.86 K/mm3 (4.00-11.30)
[2022-03-19 06:22] LABS: Albumin, Blood 2.2 g/dL (3.4-5.0); Albumin/Globulin Ratio 0.5 (0.8-1.8); Bilirubin, Total 0.4 mg/dL (0.1-1.0); Bun/Creatinine Ratio 26.9 (12.0-20.0); Calcium, Blood 7.9 mg/dL (8.5-10.1); Creatinine, Blood 3.01 mg/dL (0.60-1.20); Globulin, Blood 4.2 g/dL (2.2-4.0); Potassium, Blood 4.2 mmol/L (3.5-5.5); Total Protein, Blood 6.4 g/dL (6.4-8.2)
--- NOTE | 2022-03-19 07:28 | NUR ---
Shift Summary Pt arrived to the unit from ED at approx 2345 for failure to thrive, VEE, and GI bleed. Pt was found in a trailer with no heat, stuck in bed covered in feces and urine. Pt has contractured legs and is unable to straighten them, they are also very painful however he was not able to rate the pain from 1-10. Pt has hx of R hip fx and is very painful to turn or adjust. Pt was right sided weakness upper and lower extremities. Rcving NS @ 75. Pt ran a fever of 101.8 and was given PRN tylenol 650mg. Pt had not voided and was bladder scanned over 700 mL, but then was able to void 300 mL in the urnial and an unmeasured amount in the bed. Pt AOx2, cooperative with care.
[2022-03-19 10:36] LABS: Hematocrit 25.4 % (37.0-53.0); Hemoglobin 8.6 g/dL (13.5-17.5)
--- NOTE | 2022-03-19 14:30 | NUR ---
RN ATTEMPED TO PLACE MCLEAN CATHETER. PATIENT REFUSED. PATIENT PULLED IV. RN ATTEMPTED TO PLACE NEW IV BUT PATIENT REFUSED. WILL TRY AGAIN LATER
--- NOTE | 2022-03-19 16:35 | NUR ---
TELE ECH NOTIFIED RN OF PATIENT'S 8 BEAT RUN OF SVT AT 1625. ASSEMBLY HAND CHECKED ON THE PATIENT AT THIS TIME AND THE PATIENT WAS FAST ASLEEP. DR. HOWARD NOTIFIED BY TELEPHONE
[2022-03-19 18:42] LABS: Hematocrit 27.7 % (37.0-53.0); Hemoglobin 9.6 g/dL (13.5-17.5)
--- NOTE | 2022-03-20 05:07 | NUR ---
Patient cooperative with care, resting at this time.
--- NOTE | 2022-03-20 08:12 | NUR ---
03/20/22 0812 Carlos Calloway HISTORY, CHART, MEDICATIONS AND ALLERGIES REVIEWED BEFORE START OF PROCEDURE. PATIENT CONFIRMS NPO STATUS AND AGREES WITH SCHEDULED PROCEDURE. 3-LEAD EKG REVIEWED WITH PHYSICIAN PRIOR TO START OF PROCEDURE. MONITOR INTACT WITH CONTINUOUS PULSE OXIMETRY,CAPNOGRAPHY, 3-LEAD EKG, INTERMITTENT BP. SUPPLEMENTAL O2 TO BE TITRATED THROUGHOUT PROCEDURE TO MAINTAIN O2 SATURATION ABOVE 90%. PATIENT DETERMINED TO BE ASA APPROPRIATE FOR PROPOFOL SEDATION PRIOR TO START OF PROCEDURE BY
[2022-03-20 16:39] LABS: Calcium, Blood 8.2 mg/dL (8.5-10.1); Creatinine, Blood 3.22 mg/dL (0.60-1.20); Potassium, Blood 4.4 mmol/L (3.5-5.5)
--- NOTE | 2022-03-20 17:20 | NUR ---
DAYSHIFT SUMMARY Patient worked with PT this morning, too painful to get OOB, MD wants UA and to monitor overnight & possible DC tomorrow. Patient became agitated w/ staff, removed Tele/IV, refused to allow RN to replace, MD notified. Patient yelling at staff, attempted to redirect, patient wanted a shower and then to leave. Patient able to ambulate, very slowly w/ FWW to shower. Incontinent of B/B during shower. Helped patient back to bed, patient decided to stay and not leave AMA. Pleasant & cooperative rest of shift.
--- NOTE | 2022-03-21 04:37 | NUR ---
Shift Summary Pt calm upon arrival, stated to me that a commercial on [employer] made him think he had to leave the hospital and get home earlier today. Still unable to fully straighten legs, but he is able to extend them more than on 03/19. Pt slept comfortably in bed t/o the night, no c/o of pain or discomfort. Hypertensive t/o the night. No acute events, pleasant and cooperative with care.
[2022-03-21 06:53] LABS: Bun/Creatinine Ratio 23.2 (12.0-20.0); Calcium, Blood 8.7 mg/dL (8.5-10.1); Creatinine, Blood 2.85 mg/dL (0.60-1.20)
[2022-03-21 08:29] LABS: Source, Urine Clean Catch
[2022-03-21 08:39] LABS: Appearance, Urine Clear (Clear); Bilirubin, Urine Neg (Neg); Blood, Urine 3+ (Neg); Glucose Qualitative, Urine Neg (Neg); Ketones, Urine Neg (Neg); Leukocyte Esterase, Urine 3+ (Neg); Nitrite, Urine Neg (Neg); Protein, Urine 2+ (Neg); Urobilinogen, Urine NORM (Normal)
[2022-03-21 08:54] LABS: Color, Urine Pale Yellow (P-Yellow)
[2022-03-21 09:02] LABS: White Blood Cells, Urine 50-100 /hpf (0-5)
[2022-03-21 09:03] LABS: Bacteria Many /hpf; Red Blood Cells, Urine 0-2 /hpf (0-2); Squamous Epithelial Cells Rare /hpf (Few)
--- NOTE | 2022-03-21 18:02 | NUR ---
DAYSHIFT SUMMARY No acute changes to patient status this shift, pleasant & cooperative. This morning collected UA, sample resulted in chart. changed IV ABX to PO meds, okay for no IV. Patient wanted shower but complained that BLE hurt too much to walk to shower. Tylenol & Oxycodone given for pain. Will continue plan of care, awaiting discharge planning. VSS.
--- NOTE | 2022-03-22 04:13 | NUR ---
SHIFT SUMMARY: Pt A/Ox3, he does not always utlize call light so bed alarms on for pt safety. Pt was pleasant and cooperative with staff overnight. He denied pain, nausea, SOB. At 1930 pt had a temp of 100.7- PRN Tylenol given. Pt is inconienent of bladder. He was checked Q2h and repositioned as tolerated.
[2022-03-22 05:10] LABS: Hematocrit 28.5 % (37.0-53.0); Hemoglobin 9.6 g/dL (13.5-17.5)
[2022-03-22 05:34] LABS: Bun/Creatinine Ratio 21.5 (12.0-20.0); Calcium, Blood 8.9 mg/dL (8.5-10.1); Creatinine, Blood 2.65 mg/dL (0.60-1.20); Potassium, Blood 4.2 mmol/L (3.5-5.5)
--- NOTE | 2022-03-22 18:03 | NUR ---
SHIFT SUMMARY: PT A&O X3, PLEASANT AND ANXIOUS. PT HAD MODERATE PAIN THROUGHOUT THE SHIFT. PT PAIN MANAGED WITH PRN PAIN MEDICATION. PT EVALUATED BY PT/OT, PT ABLE TO STAND WITH FWW WITH 1 PERSON ASSIST. PT MET WITH CASE MAMAGEMENT, SEE CARE MANAGMENT NOTES. PT IN BED WITH CALL LIGHT WITHIN REACH.
--- NOTE | 2022-03-23 04:25 | NUR ---
SHIFT SUMMARY PATIENT AXO X3 WITH AGITATION AT TIMES. ONE TO TWO ASSIST W/FWW TO BSC. NO IV ACCESS. REPORTED LEG/KNEE PAIN AND OXYCODONE 5 MG GIVEN PER EMAR. DENIES SOB AND N/V. VSS/AFEBRILE. TAKES MEDICATION WHOLE WITH WATER. SLEPT ON/OFF. CALL LIGHT IN REACH. BED IN LOWEST POSITION. WILL CONTINUE TO MONITOR UNTIL DAY SHIFT NURSE ASSUMES CARE.
[2022-03-23 06:20] LABS: Bun/Creatinine Ratio 21.6 (12.0-20.0); Calcium, Blood 8.9 mg/dL (8.5-10.1); Creatinine, Blood 2.78 mg/dL (0.60-1.20); Potassium, Blood 4.6 mmol/L (3.5-5.5)
--- NOTE | 2022-03-23 18:47 | NUR ---
SHIFT SUMMARY PT AXO X2-3, THOUGH WAS ABLE TO ANSWER ORIENTATION QUESTIONS APPROPRIATELY. PT FORGETFUL AND FORGETS THAT HE CANNOT WALK. 2 MAX ASSIST FROM BED TO CHAIR, PT FEARFUL AND YELLING DURING TRANSFER. VSS. MMSE THIS SHIFT BY DARIA CATES, OT, PATIENT SCORED 18/30. PT MEDICATED FOR PAIN PER EMAR. PT SITTING UP AT BEDSIDE EATING DINNER AT THIS TIME. BED IN LOW POSITION, CALL LIGHT WITHIN REACH.
--- NOTE | 2022-03-24 08:19 | NUR ---
Rn summary: Patient was medicated x2 for dennis leg pain with roxicodone 5mg and Tylenol 650mg. Pt moans and cries due to leg pain. Pt keeps legs bent, has some contractures to rt arm. Pt with incontinence, he is a heavy wetter. Attends in place. Pt drinks lg amount of water. Pt did sit on side of bed for about 10 minutes. Call light in reach, slept on and off in small time increments.
[2022-03-24 09:41] LABS: Bun/Creatinine Ratio 23.7 (12.0-20.0); Creatinine, Blood 2.57 mg/dL (0.60-1.20); Potassium, Blood 4.3 mmol/L (3.5-5.5)
--- NOTE | 2022-03-24 16:44 | NUR ---
PT IS A/OX3, COOPERATIVE WITHDRAWN/FLAT AFFECT. THE PT HAS LIMITED MOBILITY ON THE RIGHT SIDE. PT APPEARS TO HAVE SEVERE PAIN WHEN CHANGING POSITIONS. THE PT SCREAMS WHEN REPOSITIONED. THE PT APPEARS TO BE BREATHING EASILY ON RA AT REST. THE WAS MEDICATED FOR PAIN T/O THE DAY. PT HAS BEEN INCONTINENT T/O THE DAY WITH HEAVY VOIDS. NO BM TODAY. CALL LIGHT IN REACH WILL CONTINUE TO MONITOR AND ASSESS FOR CHANGES. THE PT REFUSED TO WORK WITH THE OCCUPATIONAL THERAPIST TODAY.
--- NOTE | 2022-03-25 04:09 | NUR ---
SHIFT SUMMARY NO OVERNIGHT EVENTS. PT YELLS OUT FREQUENTLY, STATES HIS LEGS HURT. ADMINISTERED PRN PAIN MEDICATION, SEE EMR. PT NOT VERY ACTIVE IN CARES, WITHDRAWN. PT INCONTINENT OF URINE, X2 FULL BED CHANGES DOWN. DENIES ANY OTHER S/S OF DISTRESS OTHER THEN PAINFUL LEGS. BED ALARM ON.
--- NOTE | 2022-03-25 20:00 | NUR ---
END OF SHIFT SUMMARY: PATIENT REPORTED TO RN THAT HIS FEET ARE ALWAYS NUMB AND PAINFUL. MEDICATED PER PRNS AND USED PILLOWS TO HELP ALLEVIATE THE PAIN. PATIENT REPORTED THAT HE CAN BARELY EXTEND HIS LEGS. WHEN ATTEMPTED, MINIMAL STRAIGHTENING WAS NOTED. PATIENT REFUSED TO WORK WITH PT AND OT. PATIENT HAD INCREASED AGITATION WITH BRIEF AND LINEN CHANGES TODAY, PER CNAS. WHEN QUESTIONED IF TODAY HE HAD MORE PAIN OR WAS JUST HAVING A BAD DAY, PATIENT REPORTED "EVERYDAY IS A BAD DAY". PATIENT APPRECIATED BACK RUBS, WARM BLANKETS, AND UNINTERRUPTED REST TODAY. PATIENT SAT UP TO BEDSIDE FOR HIS MEALS. PATIENT HAD A GOOD APPETITE, OFTEN FINISHING ALL OF HIS TRAY.
--- NOTE | 2022-03-26 05:18 | NUR ---
Shift Summary Pt frequently grunts loudly while trying to reposition himself. C/O pain in feet, administered PRN per emar. Pt did state pain medication helped. Legs remain contractured. Incont of bowel and urine. Condom catheter placed, draining yellow urine well. Pt is withdrawn, does not want to participate in care or talk with staff. VSS, no acute events, awaiting placement.
--- NOTE | 2022-03-26 16:24 | NUR ---
SHIFT SUMMARY: PT A&O X3, LIMITED AND FORGETS. PT DECLINED PT AND WORKED WITH OT, PT CONTIUNES TO HAVE LIMITED ROM WITH BLE AND RUE. PT HAD MODERATE PAIN IN BLE AND FEET. DR. GUTIERREZ ORDERED GABAPENTIN 300MG BID TO MANAGE CHRONIC NEUROPATHIC PAIN. PT RECEVIED BOWEL CARE DUE TO NO BM SINCE 03/23/22, PT RECEVIED SENNA 2 TABS PO. PT HAD FRIENDS AT BEDSIDE THROUGHOUT THE SHIFT. PT IN BED WITH CALL LIGHT WITHIN REACH.
--- NOTE | 2022-03-27 07:50 | NUR ---
Shift Summary Pt withdrawn and flat effect. Incontinent voids, placed condom catheter which came off shortly after placement. Pt refused early AM PO ABX and protonix, he just wanted to be left alone and sleep. Slept well t/o most of the night. No C/O of pain tonight. Legs remain contractured, pt remained in bed. No acute events.
--- NOTE | 2022-03-27 10:02 | NUR ---
NURSE NOTE: PT REFUSED MORNING MEDICATION. PT EDUCATED ON THE IMPORTANTS OF MEDICATION. PT BP 98/86, 86 HR, 97.5 TEMP, 96% O2 RA, [address] BLUE NOTIFIED NO NEW ORDERS.
--- NOTE | 2022-03-27 19:21 | NUR ---
SHIFT SUMMARY: PT A&O X3, SLEEPY AND REFUSAL OF CARE. PT REFUSED MORNING MEDICATIONS AND VITALS. DR. BLUE NOTIFIED OF PT REFUSAL OF MEDICATION. PT HAD A ROUGH NIGHT AND SLEPT MOST OF THE SHIFT. PT AWAKE AND COMMUNICATING WITH STAFF AT LUNCH TIME. PT RECVIED AFTERNOON MEDICATIONS AND ATE WELL. PT RECEVIED A BED BATH AND ATTENDS [facility] BY A2. PT IN BED WITH CALL LIGHT WITHIN REACH.
--- NOTE | 2022-03-28 04:03 | NUR ---
SHIFT SUMMARY A&O X 2-3. VSS. PT SLEEPING AND HARD TO AWAKE. ENCOURAGE TO TAKE EVENING MEDS. DEFENSIVE BUT RELUCTANTLY TOOK EVENING MEDS. PT REFUSED MIDNIGHT MED. BEDREST. INCONTINENT OF BLADDER. WEARS BRIEF. BED ALARM ON. WILL CONTINUE TO MONITOR.
--- NOTE | 2022-03-28 14:52 | NUR ---
SHIFT SUMMARY PT SLEEPING AT START OF SHIFT. PT NOT WANTING TO BE WOKE UP. PER REPORT, PT REFUSING MEDS AND CARE. DR BLUE IN TO SEE PT EARLY. PT REFUSING TO ACKNOWLEDGE HER WELL. VISITOR TO AFTER A WHILE AND WAS ABLE TO GET PT TO CO-OP AND EAT BREAKFAST AND TAKE AM MEDICATIONS. PT LATER WANTING TO TAKE A SHOWER, BUT UNABLE TO EVEN STAND, MUCH LESS WALK. PT ASSISTED TO BSC WITH 2P LIFT WITH GB. PT VERY UNCO-OP AND MEAN. CURSING AT MORTGAGE LOAN ORIGINATOR REPEATEDLY, VERY VERBALLY ABUSIVE. PT GIVEN BED BATH WHILE UP TO BSC AND LINEN CHANGED. PT ASSISTED BACK TO BED WITH 2P LIFT USING GB. PT NOT WANTING TO STAND UP OR MOVE HIS FEET AT ALL. RESTTING QUIETLY AT THIS TIME. CALL LT IN REACH.
--- NOTE | 2022-03-29 04:46 | NUR ---
SUMMARY: PATIENT AOX1. DROWSY, WAKES UP TO EAT THROUGHOUT NIGHT. PATIENT WEAK BUT ABLE TO TURN HIMSELF IN BED. PATIENT FREQUENTLY SOILING ATTENDS AND BED AND NOT ALWAYS COMPLIANT WITH ALLOWING STAFF TO CLEAN HIM UP. PLACED CONDOM CATHETER ON PATIENT TO PREVENT EXCESS MOISTURE. PATIENT REMOVED COMDOM CATH. PATIENT TOOK ALL MEDS. MEDICATED ONCE FOR PAIN IN LEGS AND FEET.
[2022-03-29 06:24] LABS: BASOPHILS ABSOLUTE AUTO 0.07 K/mm3 (0.00-0.23); BASOPHILS PERCENT AUTO 1 % (0-2); EOSINOPHILS ABSOLUTE AUTO 0.16 K/mm3 (0.00-0.68); EOSINOPHILS PERCENT AUTO 2 % (0-6); Hematocrit 27.2 % (37.0-53.0); Hemoglobin 9.1 g/dL (13.5-17.5); IMMATURE GRAN ABSOLUTE AUTO 0.23 K/mm3 (0.00-0.10); IMMATURE GRAN PERCENT AUTO 3 % (0-1); LYMPHOCYTES ABSOLUTE AUTO 2.46 K/mm3 (0.84-5.20); LYMPHOCYTES PERCENT AUTO 30 % (21-46); MONOCYTES ABSOLUTE AUTO 0.62 K/mm3 (0.16-1.47); MONOCYTES PERCENT AUTO 7 % (4-13); Mean Corpuscular HGB 27.8 pg (26.0-34.0); Mean Corpuscular HGB Conc 33.5 g/dL (31.5-36.5); Mean Corpuscular Volume 83 fL (80-100); Mean Platelet Volume 8.9 fL (9.1-12.4); NEUTROPHILS PERCENT AUTO 58 % (41-73); Platelet Count 498 K/mm3 (150-400); RDW Coefficient Variation 15.4 % (11.7-14.2); RDW Standard Deviation 47.3 fL (35.1-46.3); Red Blood Cell Count 3.27 M/mm3 (4.30-5.90); White Blood Cell Count 8.34 K/mm3 (4.00-11.30)
[2022-03-29 06:52] LABS: Albumin, Blood 2.4 g/dL (3.4-5.0); Anion Gap 8 mmol/L (6-16); Blood Urea Nitrogen 68 mg/dL (8-24); Bun/Creatinine Ratio 31.2 (12.0-20.0); CO2, Blood 25 mmol/L (21-32); Calcium, Blood 8.7 mg/dL (8.5-10.1); Chloride, Blood 106 mmol/L (98-108); Creatinine, Blood 2.18 mg/dL (0.60-1.20); Glomerular Filtration Rate 33 (60-); Glucose, Blood 82 mg/dL (70-99); Phosphorus, Blood 3.3 mg/dL (2.5-4.9); Potassium, Blood 4.4 mmol/L (3.5-5.5); Sodium, Blood 139 mmol/L (136-145)
--- NOTE | 2022-03-29 18:29 | NUR ---
SHIFT SUMMARY PT AxOx3 WITH INTERM CONFUSION. PT REPORTS GENERAL WEAKNESS AND BLE PAIN WITH MOVEMENT. PT DECLINED PAIN MEDICATION THIS SHIFT. PT WORKED WITH PHYSICAL AND OCCUPATIONAL THERAPY TODAY. PT WAS UP IN CHAIR FOR >1 HOUR. PT WAS GIVEN BOWEL CARE FOR UNKNOWN LAST BM. PT UNABLE TO HAVE BM BY END OF SHIFT. VITALS REVIEWED. PT IS CURRENTLY RESTING IN BED WITH CALL LIGHT IN REACH. PT DENIES ANY NEEDS AT THIS TIME.
--- NOTE | 2022-03-30 06:46 | NUR ---
SHIFT SUMMARY PT A&O TO SELF, NO IV ACCESS, PT USES URINAL AT TIMES- INCONTIENT OF URINE AT TIMES- PT TOOK SCHEDULED MEDS WHOLE WITH JUICE-PT UP TO BSC WITH 2 PERSON HEAVY ASSIST WITH GAIT BELT- PT HAD LARGE FORMED BM BED LOW POSITION, CALL LIGHT WITHIN REACH, BED ALARM IN PLACE
--- NOTE | 2022-03-30 16:30 | NUR ---
SHIFT SUMMARY- PT PLEASANT/COORPERATIVE. VSS. APPETITE GOOD. NO C/O PAIN. PT/OT WORKED WITH PT, SEE EMAR NOTES. PT RESTING MOST OF DAY. NO ACUTE CHANGES DURING SHIFT. WILL CONTINUE TO MONITOR. CALL LIGHT IN REACH AND SIDE RAILS UP X3.
--- NOTE | 2022-03-31 06:27 | NUR ---
SHIFT SUMMARY PT A&O X 2-3- PT UPSET WHEN CHANGING HIS WET BRIEF AND PAD AT BEGINNING OF SHIFT- PT YELLING AND CUSSED AT THIS RN WHEN ASKED WHAT HE WANTED TO DRINK WITH HIS NIGHTLY SCHEDULED MEDICATIONS- PT HIT AND SQUEEZED THIS RN'S HAND WHEN REPOSITIONING IN BED- PT REMINDED NOT TO YELL OR HIT AT STAFF- PT CLOSED HIS EYES AND DIDN'T RESPOND WHEN TALKING TO HIM- PT TOOK SCHEDULED MEDS- PLAN FOR DISCHARGE TO SNF ONCE ACCEPTED- BED LOW POSITION, CALL LIGHT WITHIN REACH, BED ALARM IN PLACE
--- NOTE | 2022-03-31 17:40 | NUR ---
SHIFT SUMMARY- PT AGITATED BUT REDIRECTABLE WITH COMFORT AND SNACKS. C/O PAIN, SEE EMAR FOR TREATMENT. NO ACUTE CHANGES. ON RA. WILL CONTINUE TO MONITOR. CALL LIGHT IN REACH, SIDE RAILS UP FOR AFETY, AND BED ALARM IN PLACE.
--- NOTE | 2022-04-01 06:38 | NUR ---
SHIFT SUMMARY PT A&O X 1-2-PT WITHDRAWN- PT WILL NOT ANSWER QUESTIONS WHEN ASKED- PT OPENED MOUTH WHEN I TOLD HIM I HAVE MEDICATIONS FOR HIM- PT INCONTIENT T/O NIGHT OF URINE= BRIEF CHANGED- PT REFUSES TO SLEEP ON LEFT SIDE-BED LOW POSITION,MEDICATED FOR PAIN ONCE IN NIGHT- PT UP TO SIDE OF BED AND CONVERSING MORE WITH STAFF AND REQUESTED COFFE AND JUICE MULTIPLE TIMES THIS AM- CALL LIGHT WITHIN REACH, BED ALARM IN PLACE- PLAN IS FOR SNF PLACEMENT
--- NOTE | 2022-04-01 17:55 | NUR ---
PT VERY PLEASANT TODAY. XWIFE IN TO VISIT AND BROUGHT HOME FOOD IN TODAY. HE TALKED TO HER FOR SOME TIME. NO C/O PAIN TODAY. NO NEW CONCERNS NOTED TODAY. STILL PENDING D/C TO SNF. BED IN LOW POSITION, CALL LITE IN REACH, CALLS APPROP
--- NOTE | 2022-04-02 03:21 | NUR ---
SHIFT SUMMARY NO OVERNIGHT EVENTS. PT A/OX2, FORGETFUL, FREQUENT CALLING OUT. REPORTS LEG PAIN, ADMINISTERED PRN OXYCODONE. PT INCONTINENT OF URINE. PT ABLE TO TURN SELF IN BED. CALL LIGHT IN REACH, ABLE TO MAKE NEEDS KNOWN.
--- NOTE | 2022-04-02 17:25 | NUR ---
SHIFT SUMMARY: NO ACUTE EVENTS. C/O PAIN IN BLE; MEDICATED PER EMAR. INCONTINENT OF B&B; WEARING ATTENDS. TOLERATING REGULAR DIET, REALLY LIKES COFFEE. A&O X 2, FORGETFUL AT TIMES, YELLS OUT OCCASIONALLY. WEAKNESS IN BLE, R>L.
--- NOTE | 2022-04-03 03:37 | NUR ---
SHIFT SUMMARY NO OVERNIGHT EVENTS. AWAITING PLACEMENT. PT REPORTS PAIN TO BLE WITH MOVEMENT AND TOUCH, MEDICATED PER EMR. PT INCONTINENT OF URINE, SEVERAL BREIF CHANGES. PT REMAINS IN BED, ABLE TO TURN SELF. CALL LIGHT IN REACH, ABLE TO MAKE NEEDS KNOWN.
[2022-04-03 05:35] LABS: BASOPHILS PERCENT AUTO 2 % (0-2); EOSINOPHILS ABSOLUTE AUTO 0.15 K/mm3 (0.00-0.68); EOSINOPHILS PERCENT AUTO 2 % (0-6); Hematocrit 26.8 % (37.0-53.0); Hemoglobin 8.7 g/dL (13.5-17.5); IMMATURE GRAN ABSOLUTE AUTO 0.02 K/mm3 (0.00-0.10); IMMATURE GRAN PERCENT AUTO 0 % (0-1); LYMPHOCYTES PERCENT AUTO 29 % (21-46); MONOCYTES ABSOLUTE AUTO 0.47 K/mm3 (0.16-1.47); MONOCYTES PERCENT AUTO 7 % (4-13); Mean Corpuscular HGB 27.7 pg (26.0-34.0); Mean Corpuscular HGB Conc 32.5 g/dL (31.5-36.5); Mean Corpuscular Volume 85 fL (80-100); Mean Platelet Volume 9.3 fL (9.1-12.4); NEUTROPHILS ABSOLUTE AUTO 4.06 K/mm3 (1.96-9.15); NEUTROPHILS PERCENT AUTO 60 % (41-73); Platelet Count 419 K/mm3 (150-400); RDW Coefficient Variation 15.6 % (11.7-14.2); RDW Standard Deviation 48.2 fL (35.1-46.3); Red Blood Cell Count 3.14 M/mm3 (4.30-5.90)
[2022-04-03 06:42] LABS: Bun/Creatinine Ratio 26.7 (12.0-20.0); Calcium, Blood 8.6 mg/dL (8.5-10.1); Creatinine, Blood 2.02 mg/dL (0.60-1.20); Potassium, Blood 4.4 mmol/L (3.5-5.5)
--- NOTE | 2022-04-03 16:23 | NUR ---
SHIFT SUMMARY: NO ACUTE EVENTS. C/O PAIN IN BLE, MEDICATED PER EMAR. CONTRACTURES IN RUE AND RLE. BECAME IRRITABLE AFTER VISIT FROM FORMER GF, JUST WANTED TO BE LEFT ALONE. GOOD APPETITE. LAST DOCUMENTED BM WAS 03/30; BOWEL MEDS GIVEN THIS MORNING, NO RESULT YET.
--- NOTE | 2022-04-04 05:16 | NUR ---
SHIFT SUMMARY: Pt A/Ox2. he does not utilize call light, bed alarms on. Pt this shift was yelling out. Sometimes he did need something and other times he didn't. He did have c/o pain in his legs. PRN oxy given. He states his legs are having spasms/contractions. Pt incontinent, changed as he would allow. Pt refused to be repostioned on anything other than his Right side. He denies SOB, nausea, numbness/tingling.
--- NOTE | 2022-04-04 17:29 | NUR ---
SHIFT SUMMARY: NO ACUTE EVENTS. DANGLES AT BEDSIDE INDEPENDENTLY. C/O PAIN IN BLE; STARTED ON BACLOFEN THIS AFTERNOON, APPEARS COMFORTABLE, NO FURTHER CRYING OUT, BUT HE WAS UNABLE TO SAY WHETHER IT REALLY HELPED OR NOT. INCONTINENT OF BLADDER, WEARING ATTENDS. NO BM TODAY, BOWEL MEDS GIVEN. TOLERATING DIET, EATING 100% OF ALL MEALS. APPEARS BORED, ANXIOUS AT TIMES. NO VISITORS TODAY.
--- NOTE | 2022-04-05 06:45 | NUR ---
CARTON FILLER SUMMARY: A&Ox2-3. CALLS AND VOICES NEEDS SOMETIMES, BUT WILL OFTEN LAY IN BED AND YELL NOISES AND NONSENSICALS INTO HALLWAY. INCONTINENT OF URINE AND WEARING BRIEFS BUT DOES NOT CALL TO BE CHANGED UNLESS BED IS WET, WELL. BLOOD DRAWN THIS AM; NO CRITICAL VALUES RECEIVED AT THIS TIME. WILL REPORT TO ONCOMING RN.
--- NOTE | 2022-04-05 17:25 | NUR ---
SUMMARY- PT ALERT TO SELF AND PLACE. SLEPT MOST OF THE DAY. INCONT OF URINE. ROUTINE ATTENDS CHANGE. PT IS VERY NON-COMPLIANT WITH ADL'S BECOMES RIGID AND COMBATIVE WITH TURNS. REFUSES TO STAY ON BACK OR L SIDE AND ONLY WANTS TO SLEEP IN R SIDE. HIP IS RED BUT BLANCHABLE. PT AGREED TO SIT AT EDGE OF BED FRO MEALS, THIS IS THE ONLY TIME PT IS COMPLIANT. MEDICATED FOR PAIN ONCE THIS SHIFT, STATES HIS LEGS HURT. TOLERATING ALL MEALS PLUS SNACKS, TAKING IN LG AMOUNTS OF FLUIDS. PULLS OFF ATTENDS AND SOAKS BED AND FLOORS.
--- NOTE | 2022-04-06 00:55 | NUR ---
Refusing Meds and Assessment Pt is refusing all meds tonight including pain meds. Rates pain as 10/10 in legs but refuses any medication. Also refuses assessment, able to visually assess only.
--- NOTE | 2022-04-06 07:20 | NUR ---
Shift Summary Pt depressed and withdrawn, refused all medications and any physical assessments. Resisted undergarment and linnen changes. Called out in pain t/o the night, rated pain as 10/10, refused pain medications and interventions. Incontinent voids. Sat up to the edge of the bed at the end of shift. VSS, no acute events.
--- NOTE | 2022-04-06 20:10 | NUR ---
SUMMARY- PT ALERT TO SELF AND PLACE. [facility] STAFF REPORT THAT PT IS MORE CONFUSED TODAY. PULLS CLOTHS OFF AND ATTENDS ALL DAY. IN INCONT AND SOILS BED FREQ. UNABLE TO PARTICIPATE MEANINGFULLY WITH PT/OT PT UNABLE TO FOLLOW CUES. PT SITS AT THE EDGE OF BED AND EATS ALL MEALS AND TOLERATES FLUIDS. PT BECAME INCREASINGLY EDGY AND RESTLESS, PULLING SCD CORDS, HAD THOSE WRAPPED AROUND HIS BODY, UNBALANCED AT EDGE OF BED AND INCREASINGLY AT RISK FOR FALL. CALLED DR DOSHI AT 1830 AND PLACED SOFT VEST FOR PT SAFETY. ALSO RECEIVED AN ORDER FOR SEROQUEL IN ATTEMPLS TO AID IN PT'S MENTAL AGITATION. AWAITING PLACEMENT. REPORT TO HEATHER ARREOLA RN.
--- NOTE | 2022-04-07 06:45 | NUR ---
Shift Summary Pt AOx1, withdrawan. In [place] restraints for constantly trying to leave the bed and wrapping himself up in lines during the day per day annabella report. Refused most medications. Had very painful turns during attends changes. Removed own attends and threw them on the ground towards end of shift. Pt yelling at staff, wants to be left alone. Frequently calling out with painful yells, refusing most offers for pain medication or repositioning. Pt did have 1 small incontinent bowel movement.
[2022-04-07 09:57] LABS: BASOPHILS ABSOLUTE AUTO 0.11 K/mm3 (0.00-0.23); BASOPHILS PERCENT AUTO 2 % (0-2); EOSINOPHILS ABSOLUTE AUTO 0.07 K/mm3 (0.00-0.68); EOSINOPHILS PERCENT AUTO 1 % (0-6); Hematocrit 30.5 % (37.0-53.0); Hemoglobin 9.8 g/dL (13.5-17.5); IMMATURE GRAN ABSOLUTE AUTO 0.03 K/mm3 (0.00-0.10); IMMATURE GRAN PERCENT AUTO 0 % (0-1); LYMPHOCYTES ABSOLUTE AUTO 1.88 K/mm3 (0.84-5.20); LYMPHOCYTES PERCENT AUTO 27 % (21-46); MONOCYTES ABSOLUTE AUTO 0.42 K/mm3 (0.16-1.47); MONOCYTES PERCENT AUTO 6 % (4-13); Mean Corpuscular HGB 27.5 pg (26.0-34.0); Mean Corpuscular HGB Conc 32.1 g/dL (31.5-36.5); Mean Corpuscular Volume 86 fL (80-100); Mean Platelet Volume 9.5 fL (9.1-12.4); NEUTROPHILS ABSOLUTE AUTO 4.41 K/mm3 (1.96-9.15); NEUTROPHILS PERCENT AUTO 64 % (41-73); Platelet Count 341 K/mm3 (150-400); RDW Coefficient Variation 15.9 % (11.7-14.2); RDW Standard Deviation 49.7 fL (35.1-46.3); Red Blood Cell Count 3.56 M/mm3 (4.30-5.90); White Blood Cell Count 6.92 K/mm3 (4.00-11.30)
[2022-04-07 10:18] LABS: Bun/Creatinine Ratio 22.9 (12.0-20.0); Creatinine, Blood 2.05 mg/dL (0.60-1.20); Potassium, Blood 3.7 mmol/L (3.5-5.5)
--- NOTE | 2022-04-07 12:21 | NUR ---
ASSUMED CARE OF PT, REPORT GIVEN FROM RN.
--- NOTE | 2022-04-07 12:43 | NUR ---
LATE ENTRY/1140 PT COMBATIVE, CONFUSED, GETTING OUT OF RADHA VEST ATTEMPTING TO GET OUT OF BED. IS UNABLE TO STAND D/T LEG CONTACTURES. REFUSED ALL MORNING MEDS. ASKED FOR PAIN MEDS BUT THEN REFUSED THEM WHEN OFFERED. IS TEARING OFF BREIFS AND THROWING DEBRIS ON FLOOR. STATES HE WANTS TO GET ON BSC, WHEN ORE BUYER & RN ATTEMPTED TO HELP, HE REFUSED AND BEGAN TRYING TO HIT AT STAFF. ASSISTANCE NEEDED FROM EXTRA STAFF. PLACED CALL TO MD. ORDERS RECEIVED FOR IM ZYPREXA AND PT TRANSFERRED TO ROOM 347. REPORT GIVEN TO ALETHEA CASPER.
--- NOTE | 2022-04-07 14:52 | NUR ---
SPOKE WITH DAUGHTER ABOUT RADHA, SHE VOICED HER CONCERNS. ONCE i EXPLAINED PT WAS A THREAT TO SELF AND STAFF SHE UNDERSTOOD AND APOLIGISED FOR VOICING FRUSTERATION. DAUGHTER WILL COME VISIT IN A DAY OR TWO. WILL CONTINUE TO MONITOR.
--- NOTE | 2022-04-07 16:59 | NUR ---
SHIFT SUMMARY- PT AGITATED AND AGGRESSIVE. PT DID EAT, APPETITE GOOD. PT IS AT TIMES REDIRECTABLE BUT CAN BE VERBALLY ABUSIVE WITH STAFF. PT C/O PAIN, REFUSED AM MEDS. WILL ATTEMPT TO GIVE MEDICATIONS FOR PAIN, SEE EMAR. PAIN LOCATED IN R KNEE. PT INCONTINENT, TURN PT AND CHANGED DIRECTED. VSS. WILL CONTINUE TO MONITOR, CALL LIGHT IN REACH, BED ALARM, AND SIDE RAILS UP FOR SAFETY.
--- NOTE | 2022-04-08 06:40 | NUR ---
SHIFT SUMMARY PT ALERT TO SELF- PT IN RADHA RESTRAINTS-PT YELLING AT BEGINNING OF SHIFT AND INCREASED AGITATION WHEN STAFF IN TO REPOSITION AND ASSESS RESTRAINTS Q2H- PULLED XYPREANH FROM [employer]- PT CALM WHEN RETURNED AND TOOK SCHEDULED MEDICATIONS WITHOUT PROBLEMS- 2014 PT REQUESTED FOOD AND DRINK- PT SAT UP IN BED AND ATE SANDWICH/CHEESE AND JUICE WITHOUT ANY ISSUES- PT YELLED OUT MULTIPLE TIMES THROUGHOUT THE NIGHT- PT REFUSED TO BE REPOSITIONED T/O NIGHT- BED LOW POSITION, CALL LIGHT IN REACH, BED ALARM IN PLACE
--- NOTE | 2022-04-08 17:29 | NUR ---
PATIENT TOOK ALL MEDICATION DURING THIS SHIFT, UP UNTIL THE LAST PILL PASS. REFUSED ZOVARAX. METOPROLOL HELD DUE TO READING. PATIENT HAD ONE DOSE OF PRN SEROQUEL EARLIER IN THE SHIFT. RADHA REMOVED BEFORE 10 AM[address] CONDOM CATHETER IN PLACE NOW. PATIENT BECOMES AGITATED WITH ANY KIND OF ATTEMPT TO REPOSITION OR CHANGE BRIEF.
--- NOTE | 2022-04-09 05:41 | NUR ---
SHIFT SUMMARY PATIENT ALERT AND ORIENTED TO SELF. HAD NO COMPLAINTS OF PAIN OR SHORTNESS OF BREATH. WAS ANGRY WHEN THIS RN WOKE HIM UP TO ADMINISTER 2100 MEDICATIONS AND REFUSED BOTH MEDICATIONS AND SHIFT ASSESSMENT. PATIENT SLEPT ALL NIGHT. NO ACUTE ISSUES NOTED. CALL LIGHT WITHIN REACH. REPORT GIVEN TO ONCOMING RN.
--- NOTE | 2022-04-09 17:05 | NUR ---
DAYSHIFT SUMMARY Patient restless in bed, napped t/o day. This afternoon patient appearfed painful, moaning & crying out. Patient refused pain meds initially, but later accepted PRN oxycodone for pain. Vitals stable, no other concerns at this time. Will continue plan of care, awaiting placement.
--- NOTE | 2022-04-10 06:41 | NUR ---
SHIFT SUMMARY PATIENT ALERT AND ORIENTED TO SELF. MEDICATED PER EMAR FOR PAIN. PATIENT REFUSED 0600 MEDICATION. NO ACUTE ISSUES NOTED OVERNIGHT. CALL LIGHT WITHIN REACH. REPORT GIVEN TO ONCOMING RN.
--- NOTE | 2022-04-10 18:23 | NUR ---
DAYSHIFT SUMMARY Patient alert & oriented x2, mood is labile. Patient sleeping t/o the day. Refused to get OOB for meals. Took all medications today, Oxycodone given for pain, PRN effective. Vitals stable. Will continue plan of care, awaiting placement.
--- NOTE | 2022-04-11 06:32 | NUR ---
SHIFT SUMMARY PATIENT ALERT AND ORIENTED. MEDICATED PER EMAR FOR PAIN. HAD NO ACUTE ISSUES NOTED OVERNIGHT. CALL LIGHT WITHIN REACH. REPORT GIVEN TO ONCOMING RN.
--- NOTE | 2022-04-11 17:16 | NUR ---
DAYSHIFT SUMMARY Patient doing well today, pleasant & cooperative w/ cares. Staff assisted w/ bedbath & shaving. OOB for all meals today. Took all medications. Oxycodone given once today for pain. No behaviors noted today. Will continue plan of care, awaiting placement.
--- NOTE | 2022-04-12 03:04 | NUR ---
SHIFT SUMMARY NOC PT A/O X SELF & PLACE. PT SAT ON SIDE OF BED MULTIPLE TIMES DURING SHIFT DUT TO CHRONIC HIP PN BUT REFUSED PN RX. PT WAS PLEASANT AND COOPERATIVE TO CARE. VSS. PT USED BEDSIDE URINAL X 2. PT IS CURRENTLY RESTING WITH BED ALARM ON, BED RAILS UP, BED IN LOWEST POSITION, AND CALL LIGHT WIHIN REACH. WCTM.
--- NOTE | 2022-04-12 17:19 | NUR ---
DAYSHIFT SUMMARY Patient appeared frusterated this morning, disoriented to place/situation, yelling out. Patient reported pain, Oxycodone given, PRN effective. Patient was pleasant & cooperative with cares for the rest of the day. Took all scheduled meds, vitals stable. Will continue plan of care, awaiting placement.
--- NOTE | 2022-04-13 04:29 | NUR ---
SULFONATION EQUIPMENT OPERATOR SUMMARY PT A/OX3; PT MOOD LIABLE; SOMETIMES PLEASANT AND COOPERATIVE; OTHERTIMES AGGRESSIVE AND AGITATED. PT IS WEIGHT BEARING TOLERATED--LEGS CONTRACTURED AND GAIT IS IMPAIRED. ASSISTED PT T/BSC; PT BECAME AGITATED WHEN OFFERED ASSISTANCE BACK T/BED--PT USING BELLIGERENT LANGUAGE/GESTURES; HOSTILITY UNPREDICTABLE. PT YELLING OUT/PAINFUL; PT REQUESTED PAIN MEDS. WHEN THIS NURSE RETURNED TO BEDISDE HE REFUSED HIS PAIN MEDS AND TOLD THIS NURSE TO "GET THE FUCK OUT OF HIS ROOM" AND TO LET HIM SLEEP. PT ON MONITOR, BED LOCKED/LOW, ALARM SET, AND CALL LIGHT IN REACH.
[2022-04-13 07:15] LABS: Hematocrit 28.6 % (37.0-53.0); Hemoglobin 9.3 g/dL (13.5-17.5); Mean Corpuscular HGB 28.5 pg (26.0-34.0); Mean Corpuscular HGB Conc 32.5 g/dL (31.5-36.5); Mean Corpuscular Volume 88 fL (80-100); Mean Platelet Volume 10.1 fL (9.1-12.4); Platelet Count 250 K/mm3 (150-400); RDW Coefficient Variation 16.2 % (11.7-14.2); Red Blood Cell Count 3.26 M/mm3 (4.30-5.90); White Blood Cell Count 5.92 K/mm3 (4.00-11.30)
[2022-04-13 07:35] LABS: Albumin, Blood 2.5 g/dL (3.4-5.0); Albumin/Globulin Ratio 0.6 (0.8-1.8); Bilirubin, Total 0.2 mg/dL (0.1-1.0); Bun/Creatinine Ratio 21.6 (12.0-20.0); Calcium, Blood 8.5 mg/dL (8.5-10.1); Creatinine, Blood 2.13 mg/dL (0.60-1.20); Globulin, Blood 4.4 g/dL (2.2-4.0); Potassium, Blood 4.1 mmol/L (3.5-5.5); Total Protein, Blood 6.9 g/dL (6.4-8.2)
--- NOTE | 2022-04-13 16:59 | NUR ---
SHIFT SUMMARY PATIENT DENIES PAIN, NAUSEA, AND SHORTNESS OF BREATH. PATIENT IS A 1P WITH A FWW. PATIENT IS A&O X2. PATIENT CAN BE IRRITABLE AT TIMES, YELLING AT STAFF. PATIENT ONLY GOT AGGITATED ONCE THIS SHIFT, WAS ABLE TO BE CALMED DOWN. PATIENT SLEPT FOR MOST OF SHIFT. PATIENT IS EATING AND DRINKING WELL WHEN WANTING TO. PATIENT AWAITING PLACEMENT. PATIENT IS PLEASANT AND COOPERATIVE WITH CARE.
--- NOTE | 2022-04-14 03:49 | NUR ---
DONKEY DOCTOR SUMMARY PT A/OX3. MOOD LIABLE/UNPREDICTABLE. PT BECAME AGITATED DURING DIRECT CARE WHEN TRYING TO ASSIST HIM T/BSC AND BACK. PT DESIRES T/BE INDEPENDENT AND DOES NOT WANT HELP OR TO USE ASSISTIVE DEVICES LIKE FWW/GAIT BELT. ATTEMPT T/EDUCATE ON SAFETY; PT UNCOOPERTIVE AND VERBALLY AGGRESSIVE/ABUSIVE. PT C/O OF PAIN IN LEGS AND LOWER BACK. MED P/EMAR. PT UP T/BSC F/BM 2X; BM IS SMALL/SMEAR. REFUSED PRN STOOL SOFTNER. FALL PRECAUTIONS IN PLACE- BED LOCKED/LOW, ALARM SET, CALL LIGHT IN REACH. 1-2HR ROUNDING. PT ON MONITOR.
--- NOTE | 2022-04-14 17:45 | NUR ---
alert at times, screams out and refuses to complete tasks, yells at staff, verbally abusive, and then patient calms down from weakness, dennis legs and right arm contracted, medicated for pain, no acute changes, will relay to pm rn
--- NOTE | 2022-04-15 01:35 | NUR ---
PT WITH INCREASED AGITATION TONIGHT, PUNCHING BED RAIL, YELLING AT STAFF AND FLIPPING STAFF OFF, PRN ZYPREXA GIVEN. PT IS NOT DIRECTABLE AND CONTINUES TO YELL AND CURSE AT STAFF.
--- NOTE | 2022-04-15 04:48 | NUR ---
SHIFT SUMMARY; PT WAS AGITATED THIS PM, YELLING AND CURSING AT STAFF. PT WAS PUNCHING BEDRAIL AND CURSING AT STAFF, PRN ZYPREXA ADMINISTERED AND PT RESTED PEACEFULLY IN BED UNTIL 444. PT WAS INCONTINENT T/O THE NIGHT, REQUIERING BED CHANGES WITH EACH INCONTINENT VOID. PT WITH NO OTHER ACUTE CHANGES T/O THE NIGHT. PT DENIES ANY SOB BUT DOES COMPLAIN OF SOME PAIN THIS AM IN RELATION TO HIS LEG CONTRACTURES, WILL MEDICATE PER EMAR. BED IS IN THE LOWEST POSITION AND THE CALL LIGHT IS WITHIN REACH.
--- NOTE | 2022-04-15 16:46 | NUR ---
SHIFT SUMMARY NO ACUTE CHANGES THIS SHIFT. PT HAS SLEPT BUT THE MAJORITY OF THE SHIFT AND IS AGITATED WHEN HE WAKES UP; HE WILL YELL AT STAFF TO LEAVE THE ROOM. TREATED FOR AGITATION PER EMR. VSS.
--- NOTE | 2022-04-16 04:23 | NUR ---
SHIFT SUMMARY; PT WITH INCREASED AGITATION AND AGGRESIVE BEHAVIOR THIS SHIFT. SECURITY CONTACTED TO HELP SAFELY RESTRAIN THE PT. ZYPREXA GIVEN AT THE BEGINNING OF THE SHIFT. PT REMAINS IN A RADHA VEST FOR THE DURATION OF THE SHIFT DUE TO AGGRESIVE BEHAVIOR, FALL RISK, PT ATTEMPTING TO KICK AND THROW THINGS AT STAFF WELL YELLING AND CURSING AT STAFF. PT REFUSED PM MEDS. PT REMAINS INCONTINENT OF URINE. PT WITH PERIODS OF SLEEP FOLLOWED BY WAKEFULLNESS YELLING. PT CURRENTLY SLEEPING IN BED WITH THE BED IN THE LOWEST POSITION AND THE CALL LIGHT AT BEDSIDE.
--- NOTE | 2022-04-16 12:07 | NUR ---
RESTRAINTS TAKEN OFF AT 1100. PT RESTING IN BED, NO SIGNS OF DISTRESS NOTED. WILL CONTINUE TO MONITOR. BED ALARM ON. CALL LIGHT WITHIN REACH.
--- NOTE | 2022-04-16 17:04 | NUR ---
SHIFT SUMMARY NO ACUTE CHANGES DURING SHIFT. PT A & O X 2, CONFUSED BUT ABLE TO FOLLOW DIRECTIONS. RESTRAINTS REMOVED FROM PATIENT DURING SHIFT, NO OUTBURSTS OR VIOLENT ACTIVITY. PT PENDING PLACEMENT AT FACILITY. WILL CONTINUE TO MONITOR. CALL LIGHT WITHIN REACH.
--- NOTE | 2022-04-17 03:19 | NUR ---
Patient resting in bed, no complaints of pain or discomfort.
--- NOTE | 2022-04-17 06:03 | NUR ---
Patient refused morning vitals, very combative.
--- NOTE | 2022-04-17 16:33 | NUR ---
SHIFT SUMMARY PT AxOx3 WITH INTERM CONFUSION/FORGETFULNESS. PT HAS BEEN PLEASANT AND COOPERATIVE WITH CARE THIS SHIFT. PT REPORTS PAIN IN LEGS. MEDICATED FOR PAIN x1 DURING DAY SHIFT. PT ACTS WITHDRAWN AND DISENGAGED FROM SOCIAL INTERACTIONS. PT TRANSFERS WITH 2 ASSIST, GB AND FWW FOR GENERAL DECONDITIONING. PT IS INCONTINENT OF BLADDER. PT PASSED VERY LARGE FIRM STOOL THIS SHIFT. PT IS CURRENTLY RESTING IN BED WITH CALL LIGHT IN REACH. VITALS REVIEWED. PT DENIES ANY NEEDS AT THIS TIME. CURRENT PLAN IS SEEKING PLACEMENT.
--- NOTE | 2022-04-18 05:21 | NUR ---
Patient resting in bed, no complaints of pain or discomfort.
--- NOTE | 2022-04-18 18:20 | NUR ---
SUMMARY- PT ALERT TO SELF, THAT HE IS AT [facility] IN [place], DATE AND YEAR. PT TOLERATES FOOD AND FLUIDS. SITS AT THE EDGE OF BED FOR MEALS. INCONT OF URINE. HAD BM LAST NIGHT. PAIN IN LE CONTROLLED WITH NEURONTIN AND OXYCODONE 5MG X2 THS SHIFT. AWAITING INTERMEDIATE PLACEMENT.
--- NOTE | 2022-04-19 03:47 | NUR ---
Patient resting at this time, very verbally abusive to staff, refusing care and stating he is going home and telling staff to "fuck off".
--- NOTE | 2022-04-19 18:15 | NUR ---
SHIFT SUMMARY; PATIENT AWAKE MOST OF DAY. HE HAD ONE EPISODE OF ANGRY OUTBURST THIS AM AND AFTER DISCUSSION WITH THIS RN DECIDED THAT HE WAS GOING TO BE COOPERATIVE WITH CARE AND HAVE A GOOD DAY. PATIENT HAS UNREALISTIC EXPECTATIONS OF HIMSELF BEING TO GO UP IN THE MORROW AND BUILD A CABIN BY HIMSELF WITH AN AXE AND A SHOVEL. HE ALSO SAYS THAT HE IS ABLE TO WALK BATH AND FORTH TO THE BATHROOM WITHOUT ASSIST. HE IS ABLE TO FEED HIMSELF AND USES CALL LIGHT TO MAKE HIS NEEDS KNOWN. WILL CONTINUE TO MONITOR THIS PATIENT CLOSELY UNTIL REPORT AND HAND OFF TO NOC SHIFT RN.
--- NOTE | 2022-04-20 05:45 | NUR ---
A/OX2; SELF AND PLACE. IRRITABLE/ IMPULSIVE /AGITATED; PRNs GIVEN PER ORDERS (PO ONLY). INC; IN ATTENDS. Q2 TURN C/O PAIN WITH REPOSITIONING; PRNS PER ORDERS; APPEARS MORE COMFORTABLE AT REASSESSMENTS BED ALARM SET. CALL LIGHT IN REACH; ENCOURAGED TO MAKE NEEDS KNOWN. SLEEP PROMOTED.
--- NOTE | 2022-04-20 16:27 | NUR ---
SHIFT SUMMARY PATIENT IS ALERT BUT NOT ORIENTED. PATIENT HAS HAD NO ACUTE EVENTS THIS SHIFT. VITAL SIGNS REVIEWED. PATIENT HAS BEEN PLEASENT AND COOPERATIVE WITH CARE THIS SHIFT. PATIENT HAS NOT COMPLAINED OF PAIN, NAUSEA, SOB OR VOMITTING THIS SHIFT. PATIENT HAS BEEN IMPULSIVE AND HAD TO REDIRECT PATIENT MULTIPLE TIMES. BED IN LOCKED AND LOWEST POSITION. CALL LIGHT IN PLACE. WILL MONITOR UNTIL SHIFT CHANGE.
--- NOTE | 2022-04-21 01:52 | NUR ---
A/OX1-2; SELF AND PLACE. PLEASANT AND COOPERATIVE THIS SHIFT. CONTINUES TO BE IMPULSIVE AT TIMES; EASILY REDIRECTED. INC; IN ATTENDS. Q2 TURN. BED ALARM SET. CALL LIGHT IN REACH; ENCOURAGED TO MAKE NEEDS KNOWN. SLEEP PROMOTED.
--- NOTE | 2022-04-21 16:58 | NUR ---
PT APPEARS TO BE RESTING COMFORTABLY IN BED. PT HAS BEEN PLEASANT WITH RN. PT IS ALERT TO SELF AND PLACE AND REMAINS IMPULSIVE. BED ALARM ON AND BED IS IN THE LOWEST POSITION, HOB IS 30 DEGREES, AND CALL LIGHT IS WITHIN REACH.
--- NOTE | 2022-04-22 05:39 | NUR ---
A/0X1-3; ALERT TO SELF AND PLACE THIS SHIFT. FORGETFUL AND IMPULSIVE AT TIMES. IRRITABLE WITH ATTENDS CHANGES AND REPOSITIONING. 2X MAX ASSIST PER REPORT; NOT OOB FOR THIS RN. C/O PAIN TO R KNEE (PATIENT ATTRIBUTES TO GOUT); PRN TYLENOL X2 THIS SHIFT NO ACUTE EVENTS OVERNIGHT. SLEEP PROMOTED. BED ALARM SET, CALL LIGHT IN REACH; ENCOURAGED TO MAKE NEEDS KNOWN.
--- NOTE | 2022-04-22 17:44 | NUR ---
PT APPEARS TO BE RESTING COMFORTABLY IN BED. BED IS IN LOWEST POSITION AND CALL LIGHT IS WITHIN REACH. PT IS ORIENTED TO THE SCHEDULE AND TO FALL PRECAUTIONS. PT HAS BEEN PLEASANT WITH STAFF THIS SHIFT WITH ONLY ONE ANGRY OUTBURST.
--- NOTE | 2022-04-23 05:29 | NUR ---
SHIFT SUMMARY - NO ACUTE CHANGES THROUGHOUT THIS SHIFT. PT DID COMPLAIN OF RIGHT LEG PAIN, MEDICATED PER EMAR. PT HAS BEEN SLEEPING FOR APPX 6 HOURS. PT HAS A TENDENCY TO YELL OUT DURING HIS SLEEP, BUT EVERY TIME STAFF CHECKED ON HIM, HE WAS SLEEPING. PT HAS BEEN APPROPRIATE WITH CARE TONIGHT. PT ALSO RELAYED THE RIGHT LEG PAIN WASN'T NEW FOR HIM. CALL LIGHT WITHIN REACH. BED IN LOW POSITION. BED ALARM ON FOR PT SAFETY. FLUIDS AT BEDSIDE.
--- NOTE | 2022-04-23 10:57 | NUR ---
CALLED DR BENTLEY- SBP 103 THIS MORNING ON MORNING VITALS, HR 51. MORNING DOSE OF METOPROLOL HELD FOR CJ D/T LOW HR. AWARE AND WILL DC METOPROLOL AT THIS TIME.
--- NOTE | 2022-04-23 17:37 | NUR ---
SHIFT SUMMARY- PT IS ALERT AND ORIENTED X4. CALL LIGHT IS WITHIN REACH AND BED IS IN THE LOWEST POSITION. PT SEEMS TO BE RESTING COMFORTABLY IN BED WITH HOB AT 30 DEGREES.
--- NOTE | 2022-04-24 04:20 | NUR ---
SHIFT SUMMARY ADMITTED FOR VEE/GI BLEED. FULL CODE. PLAN IS FOR GUARDIANSHIP/PLACEMENT. REFUSED VITALS AT END OF SHIFT. LABILE MOODS. 2 ASSIST W/FWW. REGULAR DIET. HX OF CVA - RIGHT SIDE CONTRACTURES . CONFUSED AND IMPULSIVE. ON RA. INCONTINENT.
--- NOTE | 2022-04-24 05:28 | NUR ---
PT STATUS PT REFUSED SYSTEMS ARCHITECT PROTONIX. PT REFUSED VITALS. PT REFUSED TO TURN FOR INCONTINENT BED DRESSING/ATTENDS CHANGE. PAIN RX OFFERED, PT REFUSED TO RESPOND
--- NOTE | 2022-04-24 15:50 | NUR ---
SHIFT SUMMARY PT RESTING QUIETLY AT START OF SHIFT, NOT WANTING TO WAKE UP FOR BREAKFAST. PT LATER WOKE TAKING MEDS WHOLE WITH WATER. ATE WELL FOR LUNCH. REFUSED TO GET UP TO CHAIR FOR LUNCH, BUT AGREED TO GET UP FOR DINNER. BED BATH GIVEN AND PT CHANGED FOR INCONTINENCE. REFUSES TO USE CALL LT FOR ASSIST WITH URINAL. DR BENTLEY IN THIS AM TO SEE PT, BUT HE STATED THAT HE DID NOT WANT TO BE BOTHERED AT THAT TIME. PSORIASIS COVERING FACE, NECK, AND CHEST. PER REPORT, PT WAITING PLACEMENT/GUARDIANSHIP. NO C/O PAIN. BED ALARM ON FOR SAFETY. CALL LT IN REACH.
--- NOTE | 2022-04-25 05:39 | NUR ---
Patient resting in bed at this time.
--- NOTE | 2022-04-25 14:05 | NUR ---
SHIFT SUMMARY PT RESTING QUIETLY AT START OF SHIFT TODAY. WOKE EASILY FOR CARE AND GOT HIMSELF UP TO EOB FOR BREAKFAST. PT EATING AND DRINKING WELL. HAS BEEN MORE CO-OP WITH CARE AGAIN TODAY. UP TO EOB FOR MEALS ON HIS OWN. INCONTINENT OF URINE; DOES NOT CALL FOR URINAL. PT CLEANED AND CHANGED NEEDED. LINENS CHANGED AGAIN WELL. DR BENTLEY NOTIFIED OF PSORIASIS GETTING WORSE; MEDICATION TO BE ORDERED. NO OTHER NEEDS NOTED. PT RESTING QUIETLY AT THIS TIME. CALL LT IN REACH.
--- NOTE | 2022-04-26 05:02 | NUR ---
SHIFT SUMMARY PT A&O X 2-3, PT ABLE TO FOLLOW DIRECTIONS- PT HAD INCREASED PAIN IN RIGHT HIP/LEG - PT REQUESTED PAIN MEDICATION- GAVE OXYCODONE AND TYLENOL, PT ATE SNACK WITHOUT PROBLEMS, PT INCONTINET OF URINE- BRIEF CHANGED Q2H- PT TURNED SELF AT TIMES - PT ABLE TO SIT UP ON SIDE OF BED - NO ATTEMPTS TO GET OUT OF BED- PT USED CALL LIGHT APPROPRIATE, BED LOW POSITION, BED ALARM IN PLACE
--- NOTE | 2022-04-26 16:32 | NUR ---
PATIENT IS ALERT AND ORIENTED. NO AGITATION THIS SHIFT SO FAR. PATIENT SAT UP ON THE EDGE OF THE BED FOR MEALS. INCONTINENT OF BLADDER, ATTENDS IN PLACE. PATIENT HAD A BEDBATH THIS AFTERNOON. MEDICATED FOR RIGHT LEG PAIN PER EMAR. WILL CONTINUE TO MONITOR.
--- NOTE | 2022-04-27 05:17 | NUR ---
SHIFT SUMMARY PT A&O X 2-3- PT CALM T/O THE SHIFT- PT REQUESTED A URINAL AND NOTIFIED THIS RN THAT HIS BRIEF WAS WET AND NEEDED CHANGED, PT YELLED OUT WHILE ASLEEP- PT REPORTED SEVERE PAIN SPASMS IN THE LEFT HIP/LEG -GAVE OCYCODONE AND TYLENOL PT YELLS OUT WHILE SLEEPING - BED LOW POSITION, CALL LIGHT WITHIN REACH, BED ALARM IN PLACE
--- NOTE | 2022-04-27 18:39 | NUR ---
SHIFT SUMMARY PT SLEEPING LATE THIS MORNING AND DIDN'T EAT BREAKFAST. HAS USED CALL BUTTON APPROPIRATELY. INCONTINENT OF URINE. SITTING ON SIDE OF BED TO EAT MEALS. INDEPENDENT WITH MOBILITY IN BED.
--- NOTE | 2022-04-28 05:00 | NUR ---
SHIFT SUMMARY PT A&O X 2-3- PT HAD INCREASED CONFUSION IN THE FIRST FEW HOURS OF THE SHIFT- PT KEPT REMOVING BRIEF AND THROWING IT ON THE FLOOR- ENCOURAGED PT TO LEAVE THE BRIEF ON- 0150 PT USED CALL LIGHT AND REQUESTED SANDWICH AND PEPSI- PT SAT UP IN BED - ATE WITHOUT PROBLEMS- BED LOW POSITION CALL LIGHT WIHTIN REACH, BED ALARM IN PLACE= PT CHANGED Q2H- PT ABLE TO TURN SELF IN BED
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
--- NOTE | 2022-04-29 07:01 | NUR ---
NO CHANGES FOR ALDAIR OVERNIGHT. CONTINENT/INCONTINENT. WITH URINAL NO ESCALATIONS IN BEHAVIOR, COOPERATIVE WITH HIS CARE.
--- NOTE | 2022-04-29 17:55 | NUR ---
EVENING NOTE RESTING QUIETLY. VISITOR BROUGHT HIM BLUEBERRY MUFFINS. VSS. HE HAS BEEN COOPERATIVE TODAY. HE HAS NOT YELLED OR HIT STAFF. INCONTINENT OF URINE MULTIPLE TIMES. CONTINUE POC.
--- NOTE | 2022-04-30 05:27 | NUR ---
NO CHANGES OVERNIGHT FOR SAMMY. HE WAS ON EDGE EARLY IN THE EVENING HE HAD BEEN INCONTINENT, AND DID NOT WANT TO WAIT FOR STAFF DURING CHANGE OF SHIFT. HS MEDICATIONS WERE GIVEN AT THE SAME TIME, AND SNACK WELL. AFTER THAT, HE SLEPT WELL ALL NIGHT. ONE MORE EPISODE OF INCONTINENCE, AND ONE PARTIAL USE OF THE URINAL DURING THE SHIFT. OXYCODONE GIVEN ONCE FOR RIGHT LEG PAINN WITH GOOD RESLT
--- NOTE | 2022-04-30 11:03 | NUR ---
RN NOTE MR MORTON HAS BEEN SLEEPING IN THIS MORNING. AWOKEN AT 0930. HE TOOK MEDS, ATE BREAKFAST. ORIENTATED TO SELF, MMC, NOT DATE OR WHY HE IS HERE. DENIED PAIN THIS AM. HAS NOT BEEN OOB YET.
--- NOTE | 2022-04-30 17:11 | NUR ---
SHIFT SUMMARY MR MORTON HAS BEEN CALM TODAY, CO-OPERATIVE WITH CARE. UP TO CHAIR, WANTED TO TRANSFER HIMSELF, 2 PERSON STANDBY ASSIST AND GAIT BELT/WALKER. PT WAS AN UNSTEADY TRANSFER AND DIDN'T PUT WEIGHT ON HIS FEET. HE DENIES PAIN, BUT C/O R LEG PAIN WHENEVER IT IS TOUCHED. INCONTINENT OF LARGE VOLUME OF STOOL AND URINE. ORIENTATED TO SELF, MMC, NOT DATE. BED LOW, BED AND CHAIR ALARMS USED. CALL LIGHT IN REACH.
--- NOTE | 2022-05-01 04:16 | NUR ---
MEAT SOAKER SUMMARY NO ACUTE CHANGES. SLEPT INTERMITTANTLY T/O THE NIGHT. 2X BRIEF W/CHAY CHANGES DUE TO HEAVY INCONTINENCE. PT CRIES OUT WHEN MOVED AND BECOMES AGITATED. PT MOANING/CRYING OUT EPISODICALLY T/O THE NIGHT. MED W/PAIN MEDS P/EMAR. PT FEARFUL OF BEING TOUCHED/MOVED IN RT LEG; PREFERENCE TO MOVE SELF. PT REMAINS ON MONITOR. BED ALARM ON. CALL LIGHT IN REACH.
--- NOTE | 2022-05-01 10:57 | NUR ---
AM NOTE MR MORTON AWOKE TO EAT BREAKFAST AND TAKE HIS MEDS THIS MORNING. AFTER THAT HE HAS BEEN SLEEPING. HE WOKE BRIEFLY, LOUD VOICE, AGITATED AND WENT BACK TO SLEEP. BED LOW, BED ALARM ON. CALL LIGHT IN REACH.
--- NOTE | 2022-05-01 15:47 | NUR ---
Shift Summary Mr Baum has been mostly calm and settled today, some short episodes of agitation. He has taken oxy for chronic R leg pain, declined a heating pad. He is orientated to self and to [facility], not to date. He is incontinent of urine to a diaper, knows that he has gone and frequently asked if he needs to go or to use the call light for assistance, but he has not been continent. His sister visited today and left when she said he was agitated with her. He has been offered and declined bath care today, declined getting out of bed to the chair today. He will turn in bed and allow underwear changes/cleansing. bed alarm in use. Bed low, call light in reach.
--- NOTE | 2022-05-02 03:57 | NUR ---
GAVE PT PAIN MEDS W/PM MEDS FOR RT LEG PAIN. MULTIPLE EPISODES OF HEAVY INCONT W/BRIEF AND CHUCKS CHANGES. PT CRIES OUT INTERMITTANTLY DURING THE NIGHT IN PAIN. WHEN I CHECKED ON HIM PT IS SLEEPING AND OFTEN REFUSES MEDS WHEN AROUSED. PT DID REQ MEDS AGAIN DURING BRIEF CHANGE AT 0345. A FEW EPISOSED OF AGITATION WITH STAFF THIS EVENING DURING CARE. PT ABLE TO MAKE NEEDS KNOWN AND WILL NOTIFY STAFF WHEN WET/NEEDS CHANGED. ENCOURAGED TO CONTACT TAFF F/ASSISTANCE TO BSC/URINAL; PT REFUSES. CALL LIGHT IN REACH. BED LOCKED/LOW POSITION.
--- NOTE | 2022-05-02 10:59 | NUR ---
RN NOTE MR SELENE SAID THAT HE'S GOING TO "GO OFF" UNLESS HE GETS PHYSICAL THERAPY. HE DID NOT WANT ME TO HELP HIM GET UP TO THE CHAIR AND DENIED THAT HE EVER DECLINED PHYSICAL THERAPY. HE DID ACCEPT A SEROQUIL. HE HAS SEEMED MORE AGITATED THIS MORNING, BUT HAS NOT BEEN YELLING OUT. BED LOW, CALL LIGHT IN REACH. BED ALARM ON.
--- NOTE | 2022-05-02 15:58 | NUR ---
SHIFT SUMMARY MR MORTON HAS CALMED THIS AFTERNOON AFTER BEING AGITATED THIS MORNING. HE SAID THAT HE FELT HE WAS GOING TO "GO OFF" THIS MORNING IF HE DID NOT GET PHYSICAL THERAPY, BUT HE HAS BEEN CALMER THIS AFTERNOON. DID RECEIVE A SEREQUIL DOSE THIS AM. HE HAS BEEN OFFERED ASSISTANCE TO GET UP OUT OF THE BED SEVERAL TIMES TODAY AND HAS REPEATEDLY REFUSED. HE CONTINUES TO BE INCONTINENT OF LARGE VOIDS. BED LOW, CALL LIGHT IN REACH, BED ALARM ON.
--- NOTE | 2022-05-03 04:41 | NUR ---
ELECTRONIC ENGINEERING DRAFTSPERSON SUMMARY NO ACUTE CHANGES. PT REQUESTED VISIT FROM PHYS THERAPY FOR 05/03/22; DISCUSSED EARLIER CONVERSATION WITH DR/DAY NURSE ABOUT PT; PT SAID WILLING TO PARTICIPATE AND MAKE EFFORT. SHORTLY AFTER PT AGITATED WITH THIS NURSE AND CONSULTANT NURSE DURING DIRECT CARE. PT SATURATED WITH URINE AND REQUIRED BED CHANGE; INITIALLY REFUSED CARE. CONT TO C/O OF RIGHT SIDED LEG PAIN. MED P/EMAR. ENCOURAGED SLEEP. CALL LIGHT IN REACH. BED LOCKED/LOW POSITION.
--- NOTE | 2022-05-03 17:35 | NUR ---
SHIFT SUMMARY PT A&O X 3. VSS. PT HAS BEEN PLEASANT & COOPERATIVE WITH ALL CARE. UP TO THE CHAIR FOR BFAST & LUNCH USING STEDY LIFT DEVICE. IS INCONTINENT OF URINE & STOOL. A REP FROM [facility] HERE THIS AFTERNOON TO INTERVIEW FOR POSSIBLE PLACEMENT.
--- NOTE | 2022-05-04 05:08 | NUR ---
PURCHASING ANALYST SUMMARY: A&Ox3 AT THE BEGINNING OF THE SHIFT. AFTER MIDNIGHT PT BECAME AGITATED AND CONFUSED, HAVING VISUAL AND AUDITORY HALLUCINATIONS, YELLING INTO THE HALLWAY FOR HELP WITH HIS HORSES, SADDLING HIS HORSES AND CONTROLLING THE CHILDREN. INCONTINENT OF URINE. NO BM DURING SHIFT. MEDICATED PRN PAIN RIGHT THIGH REGION. AWAITING PLACEMENT FOR DISCHARGE. NO ACUTE CONCERNS T/O THE NIGHT. WILL REPORT TO ONCOMING RN.
--- NOTE | 2022-05-04 14:51 | NUR ---
PT HAS HAD 2 BM's TODAY. SLEPT THROUGH BFAST. WAS MORE AWAKE FOR LUNCH AND REQUESTED HIS LUNCH TRAY AFTER A BED BATH. HAS BEEN ABLE TO VERBALIZE HIS PAIN, MEDICATED PER EMAR WITH GOOD RELIEF STATED BY PT. HIS PAIN IS IN HIS R LEG. WHEN IN PAIN CAN BE GRUMPY BUT ONCE PAIN IS MANAGED IS COOPERATIVE WITH ALL CARE.
--- NOTE | 2022-05-04 17:56 | NUR ---
SHIFT SUMMARY PT HAS C/O R LEG/THIGH PAIN TODAY. MEDICATED PER EMAR WITH GOOD RELIEF. HAS OPTED TO REMAIN IN BED BUT WILL SIT UP IN BED FOR MEDS & MEALS. PT REFUSED BFAST TODAY BUT DID EAT LUNCH AND IS EATING DINNER TONIGHT. HE HAD 4 LARGE INCONT SOFT BM's TODAY STATING HE WAS TIRED AFTER EACH BM AND SUBSEQUENT CLEAN UP. HAS BEEN QUIET AND RESTING MOST OF THIS SHIFT. IS COOPERATIVE WITH ALL CARE AND HAS VERBALIZED GRATEFULNESS TODAY. PLAN IS FOR PLACEMENT ONCE BED AVAILABILITY IS ESTABLISHED. NO CLINICAL CONCERNS THIS SHIFT. VSS. MAKES HIS NEEDS KNOWN. CALL LIGHT WITHIN REACH.
--- NOTE | 2022-05-05 05:17 | NUR ---
GEMOLOGIST SUMMARY: A&Ox2-3. DOES NOT USE CALL LIGHT. ABLE TO COMMUNICATE NEEDS, THOUGH NOT ALWAYS EFFECTIVELY. INCONTINENT OF URINE AND POLYURIA MERITING FREQUENT CHANGES OF ATTENDS AND SOMETIMES BEDDING. HAS CHRONIC PAIN IN LEFT THIGH SECONDARY TO A PRIOR ANGIOGRAM PROCEDURE; PRN OXYCODONE 5MG ADMINISTERED q6h PRN FOR THIS. CONTINUES TO STAY IN BED THROUGHOUT SHIFT AND MAKES NO ATTEMPT TO GET UP. NO ACUTE CONCERNS THROUGHOUT THE NIGHT. WILL REPORT TO ONCOMING RN.
--- NOTE | 2022-05-05 16:59 | NUR ---
PATIETN HAS BEEN CALM AND COMPLIANT TO CARE, HELPS TURN, NO VERBAL OR PHYSCIAL AGGRESION, PLEASANT TO CARE TODAY. REPOSTIONED EVERY TWO HOURS AND INDEPEDENTLY IN BED, X VISITED, ATTENDS CDI, WILL RELAY TO PM RN
--- NOTE | 2022-05-06 05:10 | NUR ---
SHIFT SUMMARY Pt has been pleasant and cooperative with care. Medicated for pain to R leg earlier this shift. Pt c/o pain with repositioning, but reports decreased pain once repositioned. Pt has rested quietly with eyes closed for most of shift. Denies any needs at this time. Will continue to monitor and report to oncoming nurse.
--- NOTE | 2022-05-06 19:14 | NUR ---
SHIFT SUMMARY PTN WITH RT-SIDED WEAKNESS PAST HX STROKE. PTN UNMOTIVATED FOR THE MOST PART AND STAYS IN BED MUCH OF THE TIME. TODAY, HE DID GET UP TO THE CHAIR AND WAS UP TO THE CHAIR FOR THE AFTERNOON. EARLY IN THE DAY HE HAD PAIN TO THE BACK OF HIS NECK THAT CAUSED HIM TO YELL OUT. THIS WAS TREATED WITH HEAT PAD AND TYLENOL THAT WAS EFFECTIVE. PTN REPORTED THAT XIMENAS FROM [facility] WAS IN TO SEE HIM, BUT ACCORDING TO HIM HE TOLD THEM HE WAS NOT INTERESTED IN GOING TO THEIR FACILITY. HE WANTS TO GO HOME, REPORTS HE HAS PROPERTY. PTN WAS INCONTINENT, WEARS DEPENDS. HE WAS WILLING TO USE THE URINAL, BUT NOT SURE HE EVER DID. NO OTHER NOTED EVENTS. CONTINUE TO MONITOR.
--- NOTE | 2022-05-07 04:47 | NUR ---
SHIFT SUMMARY 66 YR M ADMITTED SINCE 03/18/23. FULL CODE. NO ACUTE CHANGES THIS SHIFT. PT HAS SLEPT FOR MOST OF THIS SHIFT BUT HAD TO BE WOKEN UP SEVERAL TIMES DURING THE NIGHT TO BE CHANGED DUE TO INCONTINENCE. HE C/O PAIN IN HIS NECK AND BACK WHEN BEING TURNED. AT ONE POINT THIS A.M. HE WAS UNWILLING TO PARTICIPAE IN TURNING DUE TO PAIN AND BECAME VERY AGITATED WITH STAFF. HE SWUNG HIS FISTS AT US BUT IT SEEMED TO BE MORE OF A REACTION TO PAIN THAN AN ACT OF AGGRESSION. HE WAS MEDICATED FOR PAIN PER EMAR. HE STATED SEVERAL TIMES THAT HE WANTS TO GO HOME.
--- NOTE | 2022-05-07 17:25 | NUR ---
SHIFT SUMMARY NO CHANGES TO REPORT. PTN WAS COMPLIANT WITH MEDICATION MANAGEMENT, COOOPERATIVE WITH CHANGES, INCONTINENT. PTN REPOSITIONED OFTEN, BUT NOT UP TO CHAIR TODAY. HE HAS BEEN QUIET AND RESTING MOST OF THE DAY. CONTINUE TO MONITOR.
--- NOTE | 2022-05-08 06:23 | NUR ---
SHIFT SUMMARY; NO ACUTE CHANGES OVERNIGHT. THE PT WAS AXO X3 T/O THE SHIFT AND PLEASANT T/O THE SHIFT. THE PT COMPLAINED OF PAIN IN THE BEGINNING OF THE SHIFT FOR WHICH HE WAS MEDICATED WITH HIS PRN PAIN MEDICATION FOR. THE PT DENIES ANY SOB, CHEST PAIN/PRESSURE THIS SHIFT. AT THIS TIME THE PT IS RESTING IN BED WITH THE BED IN THE LOWEST POSITION AND THE CALL LIGHT AT BEDSIDE. PT IS AWAITING PLACEMENT.
--- NOTE | 2022-05-08 09:30 | NUR ---
RN GAVE REPORT TO ONCOMING NURSE MARTA
--- NOTE | 2022-05-08 17:30 | NUR ---
END OF SHIFT SUMMARY: PATIENT REQUESTED UNINTURRUPTED REST THIS MORNING. PATIENT APPRECIATED BEING ALLOWED TO REST. PATIENT TOLERATED BED BATH WELL. PATIENT REFUSED OUT OF BED ACTIVITY. PATIENT CALM AND COOPERATIVE THROUGHOUT THE SHIFT.
--- NOTE | 2022-05-09 04:05 | NUR ---
SHIFT SUMMARY; NO ACUTE CHANGES OVERNIGHT. THE PT DID HAVE SOME STIFFNESS AND PAIN IN HIS R LEG THIS AM FOR WHICH HE REQUESTED SOME PAIN MEDS, MEDICATED PER EMAR. THE PT HAS NOT SINCE COMPLAINED OF PAIN IN THAT R LEG. THE PT WAS AXO X3 THIS SHIFT, THE PT RESTED IN BED T/O THE NIGHT. THE PT DENIES ANY SOB, CHEST PAIN OR PRESSURE. WE ARE AWAITING PLACEMENT FOR THIS PT, HIS PLACEMENT IS COMPLICATED BY AGGRESIVE BEHAVIOR AND PRIOR DRUG USE. CURRENTLY THE PT IS SLEEPING IN BED WITH THE BED IN THE LOWEST POSITION AND THE CALL LIGHT AT BEDSIDE.
--- NOTE | 2022-05-09 12:36 | NUR ---
PHONE CALL TO PHYSICIAN RN PLACED PHONE CALL TO DR. VEGA, SINCE THIS AM'S ASSESSMENT, PT'S LUNG SOUNDS HAVE CONTINUED TO SOUND MORE COARSE/"JUNKY." PT'S LUNG SOUNDS HAVE CHANGED TO COARSE. HE JUST WAS DRINKING COKE AND STARTED TO CHOKE. HE VOMITED COKE MIXED WITH THICK MUCUS. HE APPEARS TO BE FEELING UNWELL. DR. VEGA STATES THAT HE WILL UPDATE ORDERS WITH PULSE OX AND APPROPRIATE IMAGING.
--- NOTE | 2022-05-09 13:11 | NUR ---
CHANGE IN PT CONDITION PT'S TEMP IS NOW 101.1, ADMINISTERED 650 MG TYLENOL PO. PT IS OPENING EYES TO VERBAL STIMULI. CONTINUOUS PULSE OX SET UP BY RN. RESP THERAPY NOTIFIED. OXYGEN DEMANDS INCREASED, PT NOW REQUIRING 7LPM VIA NC TO MAINTAIN SATS > 90%.
[2022-05-09 13:15] LABS: BASOPHILS ABSOLUTE AUTO 0.05 K/mm3 (0.00-0.23); BASOPHILS PERCENT AUTO 1 % (0-2); EOSINOPHILS ABSOLUTE AUTO 0.01 K/mm3 (0.00-0.68); EOSINOPHILS PERCENT AUTO 0 % (0-6); Hematocrit 36.4 % (37.0-53.0); Hemoglobin 12.1 g/dL (13.5-17.5); IMMATURE GRAN ABSOLUTE AUTO 0.06 K/mm3 (0.00-0.10); IMMATURE GRAN PERCENT AUTO 1 % (0-1); LYMPHOCYTES ABSOLUTE AUTO 1.02 K/mm3 (0.84-5.20); LYMPHOCYTES PERCENT AUTO 11 % (21-46); MONOCYTES ABSOLUTE AUTO 0.39 K/mm3 (0.16-1.47); MONOCYTES PERCENT AUTO 4 % (4-13); Mean Corpuscular HGB Conc 33.2 g/dL (31.5-36.5); Mean Corpuscular Volume 84 fL (80-100); Mean Platelet Volume 9.3 fL (9.1-12.4); NEUTROPHILS ABSOLUTE AUTO 7.47 K/mm3 (1.96-9.15); NEUTROPHILS PERCENT AUTO 83 % (41-73); Platelet Count 353 K/mm3 (150-400); RDW Coefficient Variation 15.3 % (11.7-14.2); RDW Standard Deviation 47.5 fL (35.1-46.3); Red Blood Cell Count 4.32 M/mm3 (4.30-5.90)
[2022-05-09 13:32] LABS: Albumin/Globulin Ratio 0.5 (0.8-1.8); Bilirubin, Total 0.2 mg/dL (0.1-1.0); Bun/Creatinine Ratio 30.8 (12.0-20.0); Calcium, Blood 9.1 mg/dL (8.5-10.1); Creatinine, Blood 1.72 mg/dL (0.60-1.20); Potassium, Blood 4.4 mmol/L (3.5-5.5)
[2022-05-09 14:58] LABS: Base Excess Venous 2.1 mmol/L
--- NOTE | 2022-05-09 14:58 | NUR ---
rn called nurse mercy dee in PCU and gave report. Pt will be transferred in-house to PCU 2.
--- NOTE | 2022-05-09 15:35 | NUR ---
TRANSFER/END OF SHIFT: PATIENT HAS BEEN COOPERATIVE WITH CARE FOR THIS RN, ORIENTATION TO REASONING IS IMPAIRED, HE IS REQUESTING MORE PEPSI, DESPITE POTENTIALLY ASPIRATING ON THIN LIQUIDS AND HAVING A LARGE INCREASE TO OXYGEN DEMAND. CURRENLTY ON 10 VIA OXYMIZER. NO SIGN OF ACUTE DISTRESS AT THIS TIME.
--- NOTE | 2022-05-09 17:29 | NUR ---
END OF SHIFT: NO CHANGES FROM ASSUMPTION/SHIFT ASSESSMENT PLEASE SEE.
--- NOTE | 2022-05-09 19:49 | NUR ---
FEVER PATIENT HAS AN ORAL TEMPERATURE OF 102.7. ATTEMPTED TO ADMINISTER TYLENOL BUT PATIENT SPIT THE MEDICATION OUT AT THIS NURSE'S FACE. ICE PACKS APPLIED TO ARM PITS AND GROIN. WILL CONTINUE TO MONITOR.
--- NOTE | 2022-05-10 05:16 | NUR ---
SHIFT SUMMARY PATIENT ALERT AND ORIENTED X3-4. PATIENT MEDICATED PER EMAR FOR FEVER, ICE PACKS AND TOOLING PAD USED WELL TO BRING TEMPERATURE DOWN, FEVER HAS NOW RESOLVED. PATIENT VERY RESISTANT TO CARE. NO OTHER ACUTE ISSUES NOTED OVERNIGHT. CALL LIGHT WITHIN REACH.
--- NOTE | 2022-05-10 16:33 | NUR ---
PATIENT IS ALERT AND ORIENTED. HE IS AGITATED AT TIMES. ON 2.5L O2 VIA NC. ST IS ASSESSING THE PATIENT AT THIS TIME. PATIENT HAS SLEPT INTERMITTENTLY THIS AFTERNOON. WILL CONTINUE TO MONITOR
--- NOTE | 2022-05-10 18:50 | NUR ---
TRANSFER FROM 361 REPORT RECIEVED FROM RN. PATIENT ALERT AND ORIENTED. CALM AND COOPERATIVE. BED IS IN THE LOWEST POSITION WITH BED ALARM ON. CALL LIGHT IS WITHIN REACH.
--- NOTE | 2022-05-11 03:03 | NUR ---
Patient resting in bed, verbally abusive towards staff if he does not get what he wants instantly, educated not to curse and insult staff and that it would not be tolerated, also educated that he knows how to use call light and needs to do so when requesting juice.
[2022-05-11 06:08] LABS: BASOPHILS ABSOLUTE AUTO 0.03 K/mm3 (0.00-0.23); BASOPHILS PERCENT AUTO 0 % (0-2); EOSINOPHILS ABSOLUTE AUTO 0.05 K/mm3 (0.00-0.68); EOSINOPHILS PERCENT AUTO 1 % (0-6); Hematocrit 29.8 % (37.0-53.0); Hemoglobin 9.7 g/dL (13.5-17.5); IMMATURE GRAN ABSOLUTE AUTO 0.03 K/mm3 (0.00-0.10); IMMATURE GRAN PERCENT AUTO 0 % (0-1); LYMPHOCYTES ABSOLUTE AUTO 1.93 K/mm3 (0.84-5.20); LYMPHOCYTES PERCENT AUTO 24 % (21-46); MONOCYTES ABSOLUTE AUTO 0.38 K/mm3 (0.16-1.47); MONOCYTES PERCENT AUTO 5 % (4-13); Mean Corpuscular HGB 27.5 pg (26.0-34.0); Mean Corpuscular HGB Conc 32.6 g/dL (31.5-36.5); Mean Corpuscular Volume 84 fL (80-100); Mean Platelet Volume 9.5 fL (9.1-12.4); NEUTROPHILS PERCENT AUTO 71 % (41-73); Platelet Count 243 K/mm3 (150-400); RDW Coefficient Variation 15.5 % (11.7-14.2); RDW Standard Deviation 47.5 fL (35.1-46.3); Red Blood Cell Count 3.53 M/mm3 (4.30-5.90); White Blood Cell Count 8.22 K/mm3 (4.00-11.30)
[2022-05-11 06:35] LABS: Bun/Creatinine Ratio 29.1 (12.0-20.0); Calcium, Blood 8.4 mg/dL (8.5-10.1); Creatinine, Blood 1.82 mg/dL (0.60-1.20); Potassium, Blood 3.9 mmol/L (3.5-5.5)
--- NOTE | 2022-05-11 16:13 | NUR ---
SHIFT SUMMARY NO ACUTE CHANGES. PT A&OX2 AND COOPERATIVE OF CARE TODAY. PT CONFUSED AT TIMES AND VERBALIZED THAT HE NEEDED TO GET DRESSED BECUASE HE NEEDED TO GO TO WORK. 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 SATING IN THE LOW 90% ON RA. VSS. POSSIBLE PLACMENT AT [facility]. BED IN LOWEST POSITION AND CALL LIGHT IN REACH.
--- NOTE | 2022-05-12 04:05 | NUR ---
SHIFT SUMMARY NOC PT A/O X 2. NO ACUTE CHANGES. PT PLEASANT AND COOPERATIVE TO CARE. PT HAD C/O PN IN NECK, BACK, AND R HIP AND MEDICATED PER EMAR. PT SLEPT FOR MOST OF SHIFT WITH IV ABX AND NS INFUSING. PT IS CURRENTLY RESTING [facility] BED ALARM ON, BED IN LOWEST POSITION, AND CALL LIGHT WITHIN REACH. WCTM.
--- NOTE | 2022-05-12 18:41 | NUR ---
SHIFT SUMMARY NO ACUTE CHANGES. PT VERY SLEEPY TODAY. VSS. COOPERATIVE OF CARE. BED IN LOWEST POSITION AND CALL LIGHT IN REACH.
--- NOTE | 2022-05-13 04:21 | NUR ---
SHIFT SUMMARY ADMITTED FOR VEE AND GI BLEED. FULL CODE. PLAN IS FOR GUARDIANSHIP/PLACEMENT. CONDOM CATH IN PLACE. CHRONIC BACK/HIP PAIN. HX OF CVA - RIGHT SIDED WEAKNESS. MECH-SOFT DIET, FEEDER. IV ANTIB RX ARE SCHEDULED. ON XARELTO. MEDICATED FOR PAIN THIS SHIFT. HE IS CONFUSED. HE IS WEAK, HE STATES FREQUENTLY HE NEEDS TO LEAVE. PHYSICAL AND OCCUPATIONAL THERAPIES ARE ASSISTING. HE IS AGITATED AND REFUSING CARE THIS MORNING.
[2022-05-13 05:32] LABS: Hematocrit 30.3 % (37.0-53.0); Hemoglobin 9.9 g/dL (13.5-17.5); Mean Corpuscular HGB 27.5 pg (26.0-34.0); Mean Corpuscular HGB Conc 32.7 g/dL (31.5-36.5); Mean Corpuscular Volume 84 fL (80-100); Mean Platelet Volume 9.2 fL (9.1-12.4); Platelet Count 234 K/mm3 (150-400); RDW Coefficient Variation 15.4 % (11.7-14.2); RDW Standard Deviation 47.7 fL (35.1-46.3); White Blood Cell Count 4.14 K/mm3 (4.00-11.30)
[2022-05-13 06:38] LABS: Albumin, Blood 2.4 g/dL (3.4-5.0); Anion Gap 6 mmol/L (6-16); Blood Urea Nitrogen 44 mg/dL (8-24); Bun/Creatinine Ratio 25.7 (12.0-20.0); CO2, Blood 25 mmol/L (21-32); Calcium, Blood 8.3 mg/dL (8.5-10.1); Chloride, Blood 107 mmol/L (98-108); Creatinine, Blood 1.71 mg/dL (0.60-1.20); Glomerular Filtration Rate 44 (60-); Glucose, Blood 91 mg/dL (70-99); Phosphorus, Blood 3.2 mg/dL (2.5-4.9); Potassium, Blood 4.2 mmol/L (3.5-5.5); Sodium, Blood 138 mmol/L (136-145)
--- NOTE | 2022-05-13 19:29 | NUR ---
SHIFT SUMMARY: PT A/O X 1-2, BEDREST. PT HAS CONTRACTURES. TURN Q2. INCONTINENT. PT WAS PLEASANT AND COOPERATIVE WITH CARES. PT DID SLEEP OFF AND ON MOST OF THE DAY BUT WAS ABLE TO BE AWOKEN WITH VERBAL STIMULI. PT WAS MOANING AND GROANING AT REST THIS AM AND NOC RN REPORTED PT HAD REFUSED PAIN MEDICATION. PT DID ACCEPT PAIN MEDICATIONS TODAY. HE DID NOT MOAN AT REST BUT DID MOAN WITH REPOSITIONING. PT REFUSED TO EAT HIS MEALS BUT DID DRINK LUNCH AND DINNER ENSURES WELL. PT HAD NO CHOKING EVENTS.
--- NOTE | 2022-05-14 04:50 | NUR ---
PATIENT ALERT X2, ROOM AIR, NO TELE, BEDREST, MEDS WHOLE WITH APPLESAUCE, MECHANICAL SOFT W/ ASSIST, 20 LACE W/ KVO AND ANTIBIOTICS, PATIENT HAS RIGHT SIDE RESIDUAL FROM CVA, PRN OXY GIVEN FOR PAIN AT BEGINNING OF SHIFT AND PATIENT SLEPT WELL THROUGHOUT SHIFT. NO EVENTS OVERNIGHT
--- NOTE | 2022-05-14 18:41 | NUR ---
SHIFT SUMMARY: PT A/O X 2, BEDREST AT THIS TIME. PT PLEASANT AND COOPERATIVE WITH CARE TODAY. PT MUCH MORE AWAKE AND AERT TODAY AND ATE AT MEALS EXCEPT LUNCH HE JUST WANTED AN ENSURE. PT PAIN MANAGED WITH OXYCODONE. PT HAD VISITORS TODAY AND HE WAS VERY INTERACTIVE WITH THEM AND WAS MUCH MORE ENERGETIC AFTER THEIR VISIT. ATE DINNER WELL. PT NEEDS ASSISTANCE WITH EATING. HANDS APPEAR TO BE CONTRACTURED.
--- NOTE | 2022-05-15 04:39 | NUR ---
PATIENT GETS AGGRAVATED AND TRIES TO HIT STAFF WHEN ASSISTING WITH TURNING AND CLEANING. MEDICATED FOR PAIN PER EMAR X2. AWAITING PLACEMENT NEXT WEEK
--- NOTE | 2022-05-15 18:12 | NUR ---
PATIENT RESTED IN BED ASLEEP MOST OF THIS SHIFT. HE RECEIVED TYLENOL FOR PAIN. IT WAS EFFECTIVE AFTERWORD HE SLEPT PEACEFULLY. PATIENT IV STILL PATENT WITH UNYSON INFUSING THROUGHOUT THIS SHIFT. HE IS TOLERATING ABX WELL. THE PLAN IS TO DISCHARGE TO A FACILITY FOR PLACEMENT NEXT WEEK.
--- NOTE | 2022-05-16 05:44 | NUR ---
PATIENT HAS BEEN IN SEVERE PAIN THROUGHOUT SHIFT. PATIENT HAS BEEN SREAMING AND CRYING. PATIENT STATES ITS HIS NECK, BACK, AND LEGS. EXACERBATED BY TURNING PATIENT AND CLEANING PATIENT. MEDICATED PER EMAR
--- NOTE | 2022-05-16 05:58 | NUR ---
SPOKE WITH DR HOWARD REGARDING PATIENTS PAIN NOT BEING CONTROLLED BY PAIN MEDICATION. EXPLAINED PATIENT HAS BEEN SCREAMING AND CRYING MOST OF SHIFT. ORDERS GIVEN FOR FLEXERIL BIB PRN.
--- NOTE | 2022-05-16 19:11 | NUR ---
PT ALERT NO S/S OF ACUTE DISTRESS, SAFETY MEASURES IN PLACE REPORT GIVEN TO ON COMING NURSE.
--- NOTE | 2022-05-17 03:53 | NUR ---
PATIENT CRIED OUT IN PAIN MULTIPLE TIMES THROUGH SHIFT. MEDICATED PER EMAR. NO EVENTS OVERNIGHT
[2022-05-17 04:58] LABS: BASOPHILS ABSOLUTE AUTO 0.03 K/mm3 (0.00-0.23); BASOPHILS PERCENT AUTO 1 % (0-2); EOSINOPHILS ABSOLUTE AUTO 0.19 K/mm3 (0.00-0.68); EOSINOPHILS PERCENT AUTO 5 % (0-6); Hematocrit 31.7 % (37.0-53.0); Hemoglobin 10.2 g/dL (13.5-17.5); IMMATURE GRAN ABSOLUTE AUTO 0.09 K/mm3 (0.00-0.10); IMMATURE GRAN PERCENT AUTO 2 % (0-1); LYMPHOCYTES ABSOLUTE AUTO 2.04 K/mm3 (0.84-5.20); LYMPHOCYTES PERCENT AUTO 51 % (21-46); MONOCYTES ABSOLUTE AUTO 0.27 K/mm3 (0.16-1.47); MONOCYTES PERCENT AUTO 7 % (4-13); Mean Corpuscular HGB 26.9 pg (26.0-34.0); Mean Corpuscular HGB Conc 32.2 g/dL (31.5-36.5); Mean Corpuscular Volume 84 fL (80-100); Mean Platelet Volume 9.5 fL (9.1-12.4); NEUTROPHILS ABSOLUTE AUTO 1.36 K/mm3 (1.96-9.15); NEUTROPHILS PERCENT AUTO 34 % (41-73); Platelet Count 276 K/mm3 (150-400); RDW Coefficient Variation 15.5 % (11.7-14.2); RDW Standard Deviation 46.9 fL (35.1-46.3); Red Blood Cell Count 3.79 M/mm3 (4.30-5.90); White Blood Cell Count 3.98 K/mm3 (4.00-11.30)
[2022-05-17 05:39] LABS: Albumin, Blood 2.3 g/dL (3.4-5.0); Anion Gap 6 mmol/L (6-16); Blood Urea Nitrogen 39 mg/dL (8-24); Bun/Creatinine Ratio 23.8 (12.0-20.0); CO2, Blood 24 mmol/L (21-32); Calcium, Blood 8.5 mg/dL (8.5-10.1); Chloride, Blood 110 mmol/L (98-108); Creatinine, Blood 1.64 mg/dL (0.60-1.20); Glomerular Filtration Rate 46 (60-); Glucose, Blood 82 mg/dL (70-99); Phosphorus, Blood 3.7 mg/dL (2.5-4.9); Potassium, Blood 3.9 mmol/L (3.5-5.5); Sodium, Blood 140 mmol/L (136-145)
--- NOTE | 2022-05-17 19:12 | NUR ---
PT ALERT NO S/S OF ACUTE DISTRESS. SAFETY MEASURES IN PLACE. REPORT GIVEN TO ON COMING NURSE.
--- NOTE | 2022-05-18 04:59 | NUR ---
SHIFT UNREMARKABLE. PATIENT TOOK 2100 MEDICATIONS WITHOUT DIFFICULTY THEN SLEPT THROUGH MOST OF REMAINDER OF SHIFT. CALL LIGHT LEFT WITHIN REACH.
--- NOTE | 2022-05-18 19:03 | NUR ---
PT RESTING NO S/S OF ACUTE DISTRESS, SAFETY MEASURES IN PLACE. REPORT GIVEN TO ON COMING NURSE.
--- NOTE | 2022-05-19 04:06 | NUR ---
SHIFT UNREMARKABLE. PATIENT HAS SLEPT THROUGH MUCH OF SHIFT AFTER 2100 MEDICATION ADMINISTRATION. PATIENT IS VERY SOMNOLENT BUT AROUSABLE FOR BED CHANGES, MEDICATION ADMINISTRATION, AND ASSESSMENT. DENIES ANY PAIN OR DISCOMFORT WHENEVER ASKED. CALL LIGHT LEFT WITHIN REACH.
[2022-05-19] MEDS ORDERED: ATOR20 PO (09:02)
[2022-05-19] MEDS ORDERED: Acetaminophen650 M1 PO (09:03)
[2022-05-19] MEDS ORDERED: CYCL10 PO (09:03)
[2022-05-19] MEDS ORDERED: DOCUZEN 8.6-501 EACH PO (09:05)
[2022-05-19] MEDS ORDERED: TAMS.4ER PO (09:06)
[2022-05-19] MEDS ORDERED: Seroquel Xr50 MG PO (09:06)
[2022-05-19] MEDS ORDERED: Triamcinolone A15 G3 TOP (09:06)
[2022-05-19] MEDS ORDERED: GABA300 PO (09:06)
[2022-05-19] MEDS ORDERED: PANT40 PO (09:07)
[2022-05-19] MEDS ORDERED: MIRALAX11910 PO (09:07)
[2022-05-19] MEDS ORDERED: Percocet 5-3251 EACH PO (09:08)
--- NOTE | 2022-05-19 10:37 | NUR ---
DISCHARGE PT PREMEDCIATED FOR ACTIVITY OF GETTING UP TO THE DISCHARGE W/C. IV REMOVED FROM LEFT UE. PRESSURE DRESSING APPLIED. HELPED HIM DRESS IN NEW CLOTHS. AWAITING TRANSPORT. CONTINUE POC.
--- NOTE | 2022-05-19 11:21 | NUR ---
DISCHARGE TO [facility] PT TRANSFERED WITH 2 ASSIST. TOLERATED WELL. DRANK SOME WATER AFTER GETTING UP. NO YELLING. LEFT VIA W/C. CONTINU POC.
[2022-05-27] MEDS ORDERED: ATORVASTATIN CA20 MG PO (12:04)
[2022-05-27] MEDS ORDERED: METOPROLOL TART25 MG PO (12:05)
[2022-05-27] MEDS ORDERED: NEURONTIN300 MG PO (12:05)
[2022-05-27] MEDS ORDERED: ASPI81CH PO (12:06)
[2022-05-27] MEDS ORDERED: PANT40 PO (12:06)
[2022-05-27] MEDS ORDERED: QUET300 PO (12:48)
== END 2022-05-19 11:20 | DRG 380 ==
LOC: ER 17:13 → MEDS 21:29 → PCU 05-09 15:07 → MEDS 05-10 12:50
PROVIDERS: Internal Medicine; Internal Medicine Gastroenterology; Student in an Organized Health Care Education/Training Program; ADMIT Internal Medicine
PROC: 0DB68ZX Excision of Stomach, Via Natural or Artificial Opening Endoscopic, Diagnostic (ICD-10-PCS; 2022-03-20)
PROC: 0DB98ZX Excision of Duodenum, Via Natural or Artificial Opening Endoscopic, Diagnostic (ICD-10-PCS; principal; 2022-03-20 08:00)
DX: K22.11 Ulcer of esophagus with bleeding (principal); J69.0 Pneumonitis due to inhalation of food and vomit; J96.02 Acute respiratory failure with hypercapnia; N17.9 Acute kidney failure, unspecified; B01.9 Varicella without complication; B02.8 Zoster with other complications; M62.82 Rhabdomyolysis; E44.1 Mild protein-calorie malnutrition; I69.351 Hemiplegia and hemiparesis following cerebral infarction affecting right dominant side; N18.30 Chronic kidney disease, stage 3 unspecified; E86.0 Dehydration; D63.1 Anemia in chronic kidney disease; I12.9 Hypertensive chronic kidney disease with stage 1 through stage 4 chronic kidney disease, or unspecified chronic kidney disease; R79.89 Other specified abnormal findings of blood chemistry; R62.7 Adult failure to thrive; F01.50 Vascular dementia, unspecified severity, without behavioral disturbance, psychotic disturbance, mood disturbance, and anxiety; F15.10 Other stimulant abuse, uncomplicated; G62.89 Other specified polyneuropathies; N40.1 Benign prostatic hyperplasia with lower urinary tract symptoms; R33.8 Other retention of urine; L97.529 Non-pressure chronic ulcer of other part of left foot with unspecified severity; E78.5 Hyperlipidemia, unspecified; M79.606 Pain in leg, unspecified; K44.9 Diaphragmatic hernia without obstruction or gangrene; R63.4 Abnormal weight loss; Z74.09 Other reduced mobility; Z96.652 Presence of left artificial knee joint; Z20.822 Contact with and (suspected) exposure to COVID-19; Z88.7 Allergy status to serum and vaccine; Z88.8 Allergy status to other drugs, medicaments and biological substances; Z79.02 Long term (current) use of antithrombotics/antiplatelets; Z79.01 Long term (current) use of anticoagulants; Z79.82 Long term (current) use of aspirin; Z79.899 Other long term (current) drug therapy; Z98.890 Other specified postprocedural states; Z68.29 Body mass index [BMI] 29.0-29.9, adult; Z86.19 Personal history of other infectious and parasitic diseases; Z59.00 Homelessness unspecified
CPT/HCPCS: 0241U; 36415; 71045; 76770; 80048; 80053; 80069; 81001; 82550; 82553; 82803; 83735; 83880; 84145; 84443; 85014; 85018; 85025; 85027; 86850; 86900; 86901; 88305; 88342; 92526; 92610; 93005; 93010; 94760; 96361; 96374; 97110; 97112; 97129; 97130; 97162; 97166; 97530; 97535; 99285-25; A9270; C9113; G0480; J0290; J0295; J0696; J1644; J2001; J2250; J2704; J7030; J7050; J7120